=== PATIENT | female | born 1945 | race Caucasian/White ===

== ENCOUNTER 2020-06-26 12:51 | Outpatient (CLI) | payer MEDICARE, SELFPAY ==
--- NOTE | 2020-06-26 12:56 | ECG_ITS ---
Measurements Intervals [place] Rate: 158 P: [place]: 0 QRS: 33 QRSD: 83 T: 9 QT: 271 QTc: 440 Interpretive Statements ATRIAL FIBRILLATION WITH RAPID VENTRICULAR RESPONSE INCOMPLETE RIGHT BUNDLE BRANCH BLOCK BASELINE ARTIFACT- AVF ABNORMAL ECG Electronically Signed On 06-26-2020 13:20:30 MATERIAL CHASER by Wes Sofia D.O.
== END 2020-06-26 12:52 | disposition home or self-care (01) ==
LOC: CHSLAB 12:56
PROVIDERS: PCP Nurse Practitioner Family; Visit Provider Nurse Practitioner Family
DX: I49.9 Cardiac arrhythmia, unspecified (principal)
CPT/HCPCS: 93005

== ENCOUNTER 2020-06-26 13:21 | Emergency (ER) | payer MEDICARE, SELFPAY ==
--- NOTE | ~2020-06-26 | XR_ITS ---
EXAMINATION: XR chest 1V portable INDICATION: Tachycardia TECHNIQUE: Portable AP chest at 1359 hours COMPARISON: None available FINDINGS: The heart size is upper limits of normal for technique. There are minimal airspace opacitie s of the lung bases. No pleural effusion or pneumothorax is identified. IMPRESSION: 1. Minimal airspace opacities of the lung bases, consistent with atelectasis versus pneumonia. Reviewed, dictated and finalized at location A. T CLERKS SUPERVISOR IMPRESSION: 1. Minimal airspace opacities of the lung bases, consistent with atelectasis ve rsus pneumonia.
[2020-06-26 13:25] VITALS: BP 167/74; PULSE 160; RESP 20; TEMP 36.3; O2SAT 100
[2020-06-26 13:30] VITALS: PULSE 160
--- NOTE | 2020-06-26 13:39 | ED.ARRPALP ---
HPI - Arrhythmia/Palpitations General Chief Complaint: Arrhythmia/Palpitations Stated Complaint: chest pain Time Seen by Provider: 06/26/20 13:39 Source: patient Mode of arrival: wheelchair Limitations: no limitations History of Present Illness HPI narrative: 74-year-old woman comes in today after she was found at her primary care doctor's office staff tachycardia. She was sent for an outpatient EKG which showed atrial fibrillation with RVR at 160-170. She denies any symptoms including chest pain, shortness of breath, ankle swelling, chest pressure, lightheadedness, dizziness, cough, recent cough or cold symptoms, abdominal pain or dysuria. She denies history of coronary artery disease, prior arrhythmias, heart procedures, thyroid disease, and currently does not take any medications. MD complaint: rapid heart beat and atrial fibrillation Onset (ago): unknown Duration: constant Associated symptoms: denies other symptoms Related Data Home Medications Medication Instructions Recorded Confirmed multivitamin 1 tablet PO DAILY 06/26/20 06/26/20 Allergies Allergy/AdvReac Type Severity Reaction Status Date / Time metronidazole [Flagyl] Allergy Intermediate Unknown Verified 06/26/20 15:18 Penicillins Allergy Intermediate Unknown Verified 06/26/20 15:18 Review of Systems Constitutional: Constitutional: Denies chills, Denies fatigue, Denies fever(s) and Denies weakness Eyes: Eyes: Denies change in vision and Denies photophobia ENT: Denies dysphagia, Denies nasal congestion and Denies sore throat Cardiovascular: Cardiovascular: Denies chest pain and Denies radiating jaw, neck or arm pain Respiratory: Respiratory: Denies chest congestion, Denies cough, Denies dyspnea and Denies wheezing Gastrointestinal: Gastrointestinal: Denies abdominal pain, Denies diarrhea, Denies nausea and Denies vomiting Genitourinary: Genitourinary: Denies nocturia and Denies dysuria Musculoskeletal: Musculoskeletal: Denies arthralgias and Denies joint swelling Integumentary/Breasts: Skin/Breast: Denies pruritus, Denies erythema and Denies rash Neurologic: Denies vertigo, Denies dizziness and Denies syncope Hematologic/Lymphatic: Hematologic/Lymphatic: Denies easy bleeding and Denies easy bruising Allergic/Immunologic: Allergic/Immunologic: Denies lip swelling and Denies tongue swelling PMFSH Past Medical History Medical History Overweight Social History Social History (Updated 06/26/20 @ 15:22 by Laci Bhardwaj MD) Smoking status: Never smoker Alcohol intake: never Substance use: never Living arrangements: alone Additional living arrangements comments: 2 dogs Exam Const: General: alert Nutritional Appearance: obese Orientation/consciousness: patient oriented x3 Other: anxious HENMT: Head: normal to inspection General nose exam: Normal nares present Face and sinus: normal facial exam Mouth: Yes moist mucous membranes Throat: posterior oropharynx normal Eyes: Conjunctivae: conjunctivae normal Pupils: Equal, round and reactive pupils present EOM: EOMs intact bilaterally Resp: Effort & Inspection: normal respiratory effort and not labored Auscultation: clear to auscultation bilaterally, no rales, no rhonchi and no wheezes Cardio: Rate: tachycardic Rhythm: abnormal rhythm irregularly irregular GI: Inspection: non-distended Auscultation: normal bowel sounds Other: nontender Skin: General skin exam: normal color, no jaundice and no pallor Rashes: no rashes Neuro: General: patient oriented x3, moves all extremities, no focal motor deficits and CN's II-XI intact bilaterally Speech: normal speech Gait exam (Neuro): Normal gait present Extrem: General: normal to inspection and no clubbing, cyanosis or edema Psych: Appearance: grossly normal and well kempt Mental Status: mental status grossly normal Affect: normal affect Attitude: cooperative Th
[2020-06-26 14:02] LABS: Basophils Absolute Auto 0.06 K/mm3 (0.00-0.10); Basophils Percent Auto 0.6 % (0.0-1.0); Eosinophils Absolute Auto 0.05 K/mm3 (0.02-0.50); Eosinophils Percent Auto 0.5 % (1.0-6.0); Hematocrit 43.6 % (35.0-42.0); Hemoglobin 14.1 g/dL (11.7-13.8); Immature Granulocyte Absolute 0.03 K/mm3 (0.00-0.00); Immature Granulocyte Percent A 0.3 % (0.0-0.0); Lymphocytes Absolute Auto 2.03 K/mm3 (1.10-4.50); Lymphocytes Percent Auto 21.6 % (18.0-42.0); Mean Corpuscular HGB Conc 32.3 g/dL (32.0-36.0); Mean Corpuscular Hemoglobin 29.6 pg (27.0-31.0); Mean Corpuscular Volume 91.6 fL (78.0-102.0); Mean Platelet Volume 11.1 fl (9.2-11.8); Monocytes Absolute Auto 0.84 K/mm3 (0.10-0.90); Monocytes Percent Auto 8.9 % (2.0-11.0); Neutrophils Absolute Auto 6.4 K/mm3 (1.7-7.2); Neutrophils Percent Auto 68.1 % (50.0-70.0); Platelet Count Result 319 K/mm3 (150-420); Red Blood Count 4.76 M/mm3 (4.20-5.40); Red Cell Distribution Width 12.5 % (11.6-14.4); White Blood Count 9.4 K/mm3 (4.8-10.8)
[2020-06-26 14:21] LABS: Partial Thromboplastin Time 22.6 SEC (22.3-31.6); Prothrombin Time 10.4 Seconds (9.64-11.0)
[2020-06-26 14:22] LABS: BNP 216 pg/mL (0-100)
[2020-06-26 14:32] LABS: Alanine Aminotransferase 22 U/L (14-59); Albumin Level 3.7 g/dL (3.4-5.0); Alkaline Phosphatase 97 U/L (46-116); Anion Gap 13 mmol/L (8-16); Aspartate Amino Transferase 14 U/L (15-37); Bilirubin,Total 0.2 mg/dL (0.00-1.00); Blood Urea Nitrogen 19 mg/dL (7-18); Calcium 9.3 mg/dL (8.5-10.1); Carbon Dioxide 24 mmol/L (21-32); Chloride 104 mmol/L (98-108); Estimated CRCL calculation 47 ml/min; Estimated Glomerular Filt Rate 58; Glucose 112 mg/dL (70-99); Osmolality Calculated 295 mOsm/kg (285-295); Potassium 4.1 mmol/L (3.5-5.1); Sodium 141 mmol/L (136-145); Thyroid Stimulating Hormone Reflex 1.74 u/IU/mL (0.36-3.74); Total Protein 7.4 g/dL (6.4-8.2)
[2020-06-26 14:33] LABS: Troponin I < 0.02 ng/mL (0.00-0.056)
--- NOTE | 2020-06-26 15:02 | PC.NURSE ---
attempts to call gonzalez carrillohospitality housekeeper, with noone is available called main number. speaking with gerardo Bondshospitality housekeeper.
[2020-06-26 15:05] LABS: Add Urine Microscopic? YES; Appearance Urine Clear (Clear); Bilirubin Urine Negative (Negative); Blood Urine Negative (Negative); Color Urine Yellow (Yellow); Glucose Urine UA Negative (Negative); Ketones Urine Trace (Negative); Leukocyte Esterase Ur Negative LEU/UL (Negative); Nitrate Urine Negative (Negative); Protein Urine Negative (Negative); Specific Grav Ur >= 1.030 (1.010-1.020); Urobilinogen Urine 0.2 mg/dL (0.2-1.0)
[2020-06-26] MEDS: ENOXAPARIN 100 MG/ML SYRINGE 90 MG SUB-Q (15:08)
[2020-06-26] MEDS: dilTIAZem HCl INJ 25 MG/5 ML VIAL 10 MG IV PUSH (15:08)
[2020-06-26 15:09] VITALS: BP 145/105; PULSE 160
[2020-06-26 15:10] LABS: RBC Urine 0-2 /hpf (0-2); Squamous Epithelial Cell Urine Rare /hpf (Few); WBC Urine 0-3 /hpf (0-3)
[2020-06-26 15:11] LABS: Bacteria Urine Trace /hpf
--- NOTE | 2020-06-26 15:33 | PC.NURSE ---
[facility] CONTACTED [facility] TO PROVIDE ROOM 205
--- NOTE | 2020-06-26 15:53 | PC.NURSE ---
TELEPHONE REPORT PROVIDED TO FAM RAI RN
--- NOTE | 2020-06-26 16:02 | PC.NURSE ---
[facility] CONTACTED FOR TRANSFER. ALS RIG UNAVAILABLE. [facility] CONTACTED FOR MUTUAL AID TRANSFER TO [place].
[2020-06-26 16:04] VITALS: BP 144/92; PULSE 152; RESP 20; TEMP 36.1; O2SAT 98
== END 2020-06-26 16:26 | disposition short-term general hospital (02) ==
PROVIDERS: Emergency Provider Emergency Medicine; PCP Nurse Practitioner Family
DX: I48.91 Unspecified atrial fibrillation (principal); E66.3 Overweight
CPT/HCPCS: 36415; 71045; 80053; 81001; 83880; 84443; 84484; 85025; 85610; 85730; 93005; 96365; 96372; 99285; J1650

== ENCOUNTER 2020-06-26 19:39 | Observation (INO) | payer MEDICARE, SELFPAY ==
--- NOTE | ~2020-06-26 | US_ITS ---
EXAMINATION: US carotid duplex BI DATE: 06/27/2020 13:11 INDICATION: Right carotid bruit TECHNIQUE: Grayscale, color Doppler, and pulsed Doppler images of the cervical carotid arteries were obtained. The degree of vessel stenosis is placed in one of the following categories: normal, <50%, 5 0-69%, >=70% but less than near-occlusion, near-occlusion, or total occlusion. Note that percent sten osis relative to normal distal artery lumen diameter is indirectly measured from velocity measurement s as described by Jason, et al. Radiology 2003; 229:340-346. COMPARISON: None. FINDINGS: RIGHT: The right common carotid artery (CCA) peak systolic velocity (PSV) is 123 cm/s. The right internal ca rotid artery (ICA) PSV is 77 cm/s. The right ICA end-diastolic velocity (EDV) is 24 cm/s. The right I CA/CCA PSV ratio is 0.6. Grayscale and color Doppler images demonstrate no evident stenosis or plaque in the ICA. The external carotid artery (ECA) PSV is 94 cm/s. There is antegrade flow in the right v ertebral artery. LEFT: The left CCA PSV is 90 cm/s. The left ICA PSV is 71 cm/s. The left ICA EDV is 19 cm/s. The left ICA/C CA PSV ratio is 0.8. Grayscale and color Doppler images demonstrate no evident stenosis or plaque in the ICA. The ECA PSV is 78 cm/s. There is antegrade flow in the left vertebral artery. IMPRESSION: 1. No evident plaque or stenosis in the right internal carotid artery. 2. No evident plaque or stenosis in the left internal carotid artery. Reviewed, dictated and finalized at location A. TENDER
[2020-06-26 17:10] VITALS: BP 174/88; PULSE 43; RESP 16; TEMP 36.3; O2SAT 100; BMI 40.6
[2020-06-26 18:00] VITALS: PULSE 114
--- NOTE | 2020-06-26 18:04 | ADMGEN ---
This patient, Aleta Kenny, was admitted to IMU Room 205-01 at 1710 on 06/26/2020. Patient/family oriented to hospital policies and general routines including ID bracelet, bed and alarms, visiting hours, pain management, procedures, bathroom and other care routines, personal items, smoking policy, room service/diet, and visiting hours. Information on how to activate the Rapid Response Team has been discussed. Patient/Family are encouraged to report perceived risks to care and to ask questions if they do not understand what they are told or what they should do.
[2020-06-26 19:18] VITALS: BP 159/114; PULSE 56; RESP 16; TEMP 36.2; O2SAT 100
[2020-06-26 19:59] VITALS: BP 180/127
[2020-06-26 20:00] VITALS: PULSE 81
--- NOTE | 2020-06-26 20:00 | PM.IMHP ---
H&P: HPI History of Present Illness Date/Time: 06/26/20 19:00 Chief complaint: Atrial fibrillation/rapid ventricular response. 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 It sounds as though she had a routine appointment with her primary care provider today and at that time she was noted to be in a tachyarrhythmia and was directed to the ED where an EKG demonstrated atrial fibrillation with rapid ventricular response. She claims no prior history of such and is completely asymptomatic despite a heart rate up into the 160s. Her blood pressures have also been quite elevated, as high as 180/127, and she does admit that on occasion her blood pressure will be a bit elevated but never this high. In any regard, she was started on a Cardizem drip at the outside hospital with improvement in her rate and blood pressures. At the time my evaluation she has no complaints and specifically denies headache, auditory and visual changes, focal weakness, paresthesias, chest pain, feelings of racing heart, palpitations, pleuritic pain, shortness of breath, nausea, vomiting, and sweats. She has no known history of cardiac dysrhythmia or coronary artery disease nor has she ever been diagnosed with hypertension or thyroid disease. She drinks perhaps 1 or 2 cups of coffee a day and does not drink soda or alcohol. She has no history of sleep apnea or concerns for such. Review of Systems Review of Systems: Narrative: Twelve systems were reviewed with pertinent positives and negatives as per HPI. Weight has remained stable. No lightheadedness or dizziness. No recent cold or flu symptoms. She denies fever, chills, and sweats. No orthopnea, PND, or lower extremity edema. No history of venous thromboembolism. Except as documented, all other systems were reviewed and are negative. [facility] Past Medical History Medical History (Updated 06/27/20 @ 00:34 by eKly Graf PA-C) Osteoarthritis Paroxysmal atrial fibrillation Surgical History Surgical History (Updated 06/27/20 @ 00:27 by Kely Graf PA-C) History of dilation and curettage Status post tonsillectomy and adenoidectomy Family History Family History (Updated 06/27/20 @ 00:28 by Kely Graf PA-C) Father Morbid obesity Surgical complication It sounds as though her father had either an ERCP or cholecystectomy and had complications thereafter in which he . Social History Social History (Updated 06/27/20 @ 00:30 by Kely Graf PA-C) Social History: Surrogate decision maker: Kelton Kenny, son. Code status: Full code. Smoking status: Never smoker Alcohol intake: never Substance use: never Additional living arrangements comments: Resides in [place] with her 2 small dogs. She is originally from [place] and has 3 children, [place], a son in [place], and a daughter who lives in the region. 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 Gender identity (if verbalized by the patient): Female Sexual Orientation (if Verbalized by the Patient): Straight or Heterosexual Spiritual care concerns: No Meds Home Medications and Allergies Home Medications Medication Instructions Recorded Confirmed Type No Home Medications 06/26/20 06/26/20 History Allergies Allergy/AdvReac Type Severity Reaction Status Date / Time metronidazole [Flagyl] Allergy Intermediate Unknown Verified 06/26/20 15:18 Penicillins Allergy Intermediate Unknown Verified 06/26/20 15:18 Vital Signs V
[2020-06-26 21:57] LABS: Troponin I < 0.012 ng/mL (0.000-0.034)
[2020-06-27] VITALS (10 sets, daily range): BP systolic 135–143; BP diastolic 55–88; PULSE 74–94; RESP 11–20; TEMP 36.1–36.4; O2SAT 97–98
--- NOTE | 2020-06-27 | ECHO_ITS ---
Patient Info Name: Aleta Kenny Age: 74 years : 1945 Gender: Female Ht: 61 in Wt: 214 lbs BSA: 2.10 m2 HR: 81 bpm BP: 135 / 88 mmHg Heart Rhythm: Sinus Rhythm Technical Quality: Good Exam Date: 06/27/2020 10:15 AM Exam Location: [facility] Pulmonary Patient Status: Outpatient Admit Date: 06/26/2020 Staff Ordering Physician: Kely Graf PA-C Porcelain Slusher: Mau Wolf, CRISTINE, RT Attending Provider: Scott Soler MD Referring Physician: Homar ADAM; Exam Type: CA echo doppler color flow Study Info Indications I48.1 - Persistent atrial fibrillation Complete two-dimensional, color flow and Doppler transthoracic echocardiogram is performed. Strain analysis performed. Summary 1. Complete two-dimensional, color flow and Doppler transthoracic echocardiogram is performed. 2. Strain analysis performed. 3. Left ventricular chamber dimension is normal. 4. Left ventricular systolic function is normal, estimated at 55-60%. 5. There is moderately increased left ventricular wall thickness. 6. The left ventricular diastolic function is normal. 7. Global longitudinal strain is borderline at -17 %. 8. Left atrial chamber dimension is mildly enlarged. 9. There is moderate aortic valve stenosis with a peak velocity of 267 cm/s, mean gradient of 15 mmHg, and aortic valve area of 1.0 cm2. 10. There is moderate aortic valve calcification. 11. There is mild mitral valve regurgitation. Left Ventricle Left ventricular chamber dimension is normal. Left ventricular systolic function is normal, estimated at 55-60%. There is moderately increased left ventricular wall thickness. The left ventricular diastolic function is normal. Global longitudinal strain is borderline at -17 %. Right Ventricle Right ventricular chamber dimension is normal. Right ventricular systolic function is normal. Left Atria Left atrial chamber dimension is mildly enlarged. Right Atria Right atrial chamber dimension is normal. Atrial Septum Intact interatrial septum visualized by color flow imaging. Aortic Valve The aortic valve is trileaflet. There is moderate aortic valve stenosis with a peak velocity of 267 cm/s, mean gradient of 15 mmHg, and aortic valve area of 1.0 cm2. There is trace aortic valve regurgitation. There is moderate aortic valve calcification. Pulmonic Valve The pulmonic valve is normal. There is no pulmonic valve stenosis. There is trace pulmonic regurgitation. Mitral Valve The mitral valve has normal leaflets. There is no mitral valve stenosis. There is mild mitral valve regurgitation. Tricuspid Valve The tricuspid valve leaflets are normal. There is no significant tricuspid valve stenosis. There is trace tricuspid valve regurgitation. Pericardium/Pleural The pericardium appears normal. There is no pericardial effusion. Inferior Vena Cava Normal inferior vena cava with >50% collapse upon inspiration consistent with normal right atrial pressure, 5 mmHg. Aorta The aortic root size at the sinus of Valsalva is normal. The prox ascending aorta size is normal. Left Ventricular Outflow Tract Name Value Normal LVOT 2D LVOT Diameter 2.0 cm
--- NOTE | 2020-06-27 | ECG_ITS ---
Measurements Intervals [place] Rate: 80 P: 67 ND: 149 QRS: 3 QRSD: 76 T: 77 QT: 407 QTc: 470 Interpretive Statements SINUS RHYTHM POSSIBLE LEFT ATRIAL ENLARGEMENT INCOMPLETE RIGHT BUNDLE BRANCH BLOCK LOW QRS VOLTAGE IN PRECORDIAL LEADS BORDERLINE T WAVE ABNORMALITY- HIGH LATERAL LEADS BORDERLINE ECG Electronically Signed On 06-27-2020 18:47:01 FEE CLERK by Wes Sofia D.O.
[2020-06-27 01:34] LABS: Troponin I < 0.012 ng/mL (0.000-0.034)
[2020-06-27] MEDS: ENOXAPARIN 100 MG/ML SYRINGE SUB-Q (02:21)
[2020-06-27 06:51] LABS: Hematocrit 44.5 % (37.0-47.0); Hemoglobin 14.6 g/dL (12.0-15.0); Mean Corpuscular HGB Conc 32.8 g/dl (32-36); Mean Corpuscular Hemoglobin 29.9 pg (26-34); Mean Platelet Volume 10.9 fl (7.4-10.4); Platelet Count Result 328 k/mm3 (150-375); Red Blood Count 4.89 M/mm3 (4.2-5.4); White Blood Count 7.7 K/mm3 (4.5-10.0)
[2020-06-27 07:07] LABS: Alanine Aminotransferase 16 U/L (4-35); Albumin Level 4.2 g/dL (3.5-5.1); Alkaline Phosphatase 105 U/L (38-126); Anion Gap 9 mmol/L (8-16); Aspartate Amino Transferase 24 U/L (14-36); Bilirubin,Total 0.6 mg/dL (0.2-1.3); Blood Urea Nitrogen 15 mg/dL (7-17); Calcium 9.3 mg/dL (8.4-10.2); Carbon Dioxide 26 mmol/L (22-30); Chloride 104 mmol/L (98-107); Cholesterol 238 mg/dL (0-200); Estimated CRCL calculation 58 ml/min; Estimated Glomerular Filt Rate > 60; Glucose 138 mg/dL (65-105); HDL Direct 69 mg/dL; Magnesium 2.3 mg/dL (1.6-2.3); Potassium 4.2 mmol/L (3.4-5.0); Sodium 139 mmol/L (137-145); Triglycerides 177 mg/dL (<150)
[2020-06-27 07:19] LABS: LDL Cholesterol Direct 151 mg/dL
--- NOTE | 2020-06-27 07:38 | PM.IMPN ---
Progress Note: A&P Assessment and Plan (1) Atrial fibrillation with rapid ventricular response: Code(s): I48.91 - Unspecified atrial fibrillation Status: Acute Assessment and Plan: New onset, she converted to sinus rhythm on her own. Echocardiogram pending. CHA2 DS2 -VASC score is 3 with a 3.2% annual risk of stroke. She was started on therapeutic Lovenox. Cardiology has been consulted, she still on a Cardizem drip. (2) Elevated blood pressure reading: Code(s): R03.0 - Elevated blood-pressure reading, without diagnosis of hypertension Status: Acute Assessment and Plan: Blood pressure under better control now. She was started on hydrochlorothiazide , monitor electrolytes while on this medication. (3) Obesity: Code(s): E66.9 - Obesity, unspecified Status: Acute Assessment and Plan: Possible underlying sleep apnea. Time Spent With Patient Time with patient: 15 - 25 minutes Subjective Date/time seen: No complains, she denies chest pain or palpitations, no SOB. She converted to sinus rhythm on her own . 06/27/20 07:38 Review of Systems Review of Systems: All systems reviewed & are unremarkable except as noted in HPI and below Exam Const: General: cooperative, comfortable, no acute distress, alert and awake Neck: Neck: supple and no JVD Resp: Effort & Inspection: normal respiratory effort and able to speak in complete sentences Auscultation: clear to auscultation bilaterally Cardio: Rate: regular rate Rhythm: regular rhythm Heart sounds: S1 normal heart sound present and S2 normal heart sound present Peripheral pulses: Peripheral pulses 2+ throughout GI: Inspection: obesity Percussion: Yes normal to percussion Auscultation: normal bowel sounds and normoactive bowel sounds Skin: General skin exam: normal color and no rashes or lesions noted Neuro: General: oriented to person, oriented to place, oriented to time, moves all extremities, Normal light touch and pain sensation and no focal motor deficits Objective Data Vital Signs Vital Signs: Vital Signs - 24 hr 06/26/20 17:10 06/26/20 18:00 06/26/20 19:18 Temperature 97.3 F L 97.2 F L Pulse Rate 43 L 114 H 56 L Respiratory Rate 16 16 Blood Pressure 174/88 H 159/114 H Pulse Oximetry 100 100 06/26/20 19:59 06/26/20 20:00 06/27/20 00:00 Temperature 97.0 F L Pulse Rate 81 94 Respiratory Rate 11 L Blood Pressure 180/127 H 135/88 Pulse Oximetry 97 06/27/20 03:32 06/27/20 04:00 06/27/20 06:00 Temperature Pulse Rate 83 79 85 Respiratory Rate Blood Pressure Pulse Oximetry Intake/Output Intake/Output: Intake & Output 06/24/20 06/25/20 06/26/20 06/27/20 23:59 23:59 23:59 23:59 Intake Total 100 100 Output Total 600 Balance 100 -500 Meds/Results Medications: Active Medications Generic Name Dose Route Start Last Admin Trade Name Freq PRN Reason Stop Dose Admin Enoxaparin Sodium 100 mg 06/27/20 01:00 06/27/20 02:21 Enoxaparin 100 Mg/Ml Syringe SUB-Q 100 mg Q12H BIBI Administration Hydrochlorothiazide 12.5 mg 06/27/20 09:00 Hydrochlorothiazide 12.5 Mg Capsule PO QAM BIBI Diltiazem HCl 100 mg in 100 mls @ 15 mls/hr 06/26/20 20:00 06/27/20 03:32 Cardizem 100 Mg/D5w 100 Ml IV CONT 15 mg/hr .Q6H40M BIBI 15 mls/hr Administration 15 MG/HR Labs Labs: Laboratory Results - last 24 hr 06/26/20 06/27/20 06/27/20 21:25 01:00 06:39 WBC 7.7 RBC 4.89 Hgb 14.6 Hct 44.5 MCV 91.0 MCH 29.9 MCHC 32.8 RDW 13.0 Plt Count 328 MPV 10.9 H Sodium Potassium Chloride Carbon Dioxide Anion Gap BUN Creatinine Estim Creat Clear Calc Estimated GFR Glucose Calcium Magnesium Total Bilirubin AST ALT Alkaline Phosphatase Troponin I < 0.012 < 0.012 Total Protein Albumin Triglycerides Cholesterol LDL Cholesterol
[2020-06-27] MEDS: hydroCHLOROthiazide 12.5 MG CAPSULE PO (08:57)
--- NOTE | 2020-06-27 11:23 | PM.CNCAR ---
Assessment and Plan Assessment and plan (1) PAF (paroxysmal atrial fibrillation): Code(s): I48.0 - Paroxysmal atrial fibrillation Status: Acute Assessment and Plan: she has a chads Vasc score 3 his of age, gender and high blood pressure. This was soon to be 4 whenever she turns 76. Therefore I do think that anticoagulation is warranted. Will start her on Eliquis 5 mg p.o. b.i.d.. Discontinue enoxaparin. Also initiate metoprolol tartrate 25 mg p.o. b.i.d. both for her atrial fibrillation as well for high blood pressure. Stop hydrochlorothiazide. Will check a free T4 level. 2D echocardiogram with Dopplers artery ordered and will be reviewed. DC diltiazem drip. Okay to go home later today and will have follow-up in our office. Outpatient stress test (2) Obesity: Code(s): E66.9 - Obesity, unspecified Status: Acute (3) Hypertension: Code(s): I10 - Essential (primary) hypertension Status: Acute Assessment and Plan: on metoprolol (4) Right carotid bruit: Code(s): R09.89 - Other specified symptoms and signs involving the circulatory and respiratory systems Status: Acute Assessment and Plan: bilateral carotid artery ultrasound to evaluate her carotid bruit History of Present Illness History of Present Illness Consult date/time: 06/27/20 11:23 Requesting physician: Kely Graf PA-C Consult reason: atrial fibrillation Reason For Visit: Atrial fibrillation/rapid ventricular response. 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 She went to her primary care's office yesterday to establish with her new physician. It was noticed that she was in an irregular heartbeat and was sent for an EKG. EKG showed atrial fibrillation with rapid ventricular response. Patient blood pressure is also quite elevated. She came to the hospital then for further evaluation. She was started on diltiazem drip and her rhythm did change back to the sinus overnight. She is currently remains in sinus rhythm and is otherwise feeling fine. She has no bleeding problems. She has no chest pain, shortness breath, syncope, presyncope, paroxysmal nocturnal dyspnea, orthopnea, unusual edema or palpitations. she does have a little bit of edema and her legs which is not new or different which is dependent in nature. Review of Systems Review of Systems: All systems reviewed & are unremarkable except as noted in HPI and below Constitutional: Constitutional: Denies weakness Eyes: Eyes: Denies blurry vision ENT: Denies Normal hearing present Cardiovascular: Cardiovascular: Denies chest pain Respiratory: Respiratory: Denies dyspnea Gastrointestinal: Gastrointestinal: Denies abdominal pain Genitourinary: Genitourinary: Denies flank pain Musculoskeletal: Musculoskeletal: Denies neck pain Integumentary/Breasts: Skin/Breast: Denies dry skin Neurologic: Denies headache(s) Psychiatric: Psychiatric: Denies anxiety Endocrine: Endocrine: Denies fatigue Hematologic/Lymphatic: Hematologic/Lymphatic: Denies easy bleeding Allergic/Immunologic: Allergic/Immunologic: Denies GI upset with certain foods PMFSH Past Medical History Medical History Osteoarthritis Paroxysmal atrial fibrillation Surgical History Surgical History History of dilation and curettage Status post tonsillectomy and adenoidectomy Family History Family History Father Morbid obesity Surgical complication It sounds as though her father had either an ERCP or cholecystectomy and had complications thereafter in which he . Social History Social History Socia
--- NOTE | 2020-06-27 11:32 | PM.DS ---
DS: Admitting Diagnosis Admitting Diagnosis Admitting Diagnosis: Atrial fibrillation/rapid ventricular response. 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 who is being directly admitted to the hospitalist service from the emergency department in [place] for further treatment and evaluation of atrial fibrillation with rapid ventricular response. It sounds as though she had a routine appointment with her primary care provider today and at that time she was noted to be in a tachyarrhythmia and was directed to the ED where an EKG demonstrated atrial fibrillation with rapid ventricular response. She claims no prior history of such and is completely asymptomatic despite a heart rate up into the 160s. Her blood pressures have also been quite elevated, as high as 180/127, and she does admit that on occasion her blood pressure will be a bit elevated but never this high. She was started on a Cardizem drip and she converted back to sinus rhythm on her own. Her CHA2 DS2- VASC score is 3 for instance she was started on Eliquis. She was also started on metoprolol 25 mg BID, her bp is under better control now, she is completely asymptomatic. The patient has a carotid bruit for which she is getting a carotid Doppler and should follow up as outpatient on this, she has no signs or symptoms to suggest a stroke or TIA. Follow up with cardiology and PCP. Status at Discharge Functional status at discharge: independent ambulation Overall status at discharge: patient is back to baseline Time Spent with Patient Time attestation: Total time spent providing and/or coordinating discharge services: Time spent: Greater than 30 minutes Exam Const: General: cooperative, comfortable, no acute distress, alert and awake Orientation/consciousness: oriented to person, oriented to place and oriented to time Neck: Neck: supple and no JVD Resp: Effort & Inspection: normal respiratory effort and able to speak in complete sentences Auscultation: clear to auscultation bilaterally Cardio: Rate: regular rate Rhythm: regular rhythm Heart sounds: S1 normal heart sound present and S2 normal heart sound present Peripheral pulses: Peripheral pulses 2+ throughout GI: Inspection: obesity Auscultation: normal bowel sounds and normoactive bowel sounds Skin: General skin exam: normal color and no rashes or lesions noted Neuro: General: oriented to person, oriented to place, oriented to time, moves all extremities, Normal light touch and pain sensation and no focal motor deficits DS: Data Data Completed and Pending Labs on day of discharge: Labs from last 24 hours 06/27/20 06/27/20 06/27/20 06:39 06:39 01:00 WBC 7.7 RBC 4.89 Hgb 14.6 Hct 44.5 MCV 91.0 MCH 29.9 MCHC 32.8 RDW 13.0 Plt Count 328 MPV 10.9 H Sodium 139 Potassium 4.2 Chloride 104 Carbon Dioxide 26 Anion Gap 9 BUN 15 Creatinine 0.80 Estim Creat Clear Calc 58 Estimated GFR > 60 Glucose 138 H Calcium 9.3 Magnesium 2.3 Total Bilirubin 0.6 AST 24 ALT 16 Alkaline Phosphatase 105 Troponin I < 0.012 Total Protein 8.0 Albumin 4.2 Triglycerides 177 H Cholesterol 238 H LDL Cholesterol Direct 151 HDL Direct 69 06/26/20 21:25 WBC RBC Hgb Hct MCV MCH MCHC RDW Plt Cou
== END 2020-06-27 16:57 | disposition home or self-care (01) ==
PROVIDERS: Internal Medicine Cardiovascular Disease; Physician Assistant; Admitting Provider Internal Medicine; PCP Nurse Practitioner Family; Visit Provider Hospitalist
DX: I48.0 Paroxysmal atrial fibrillation (principal); I10 Essential (primary) hypertension; E66.01 Morbid (severe) obesity due to excess calories; Z68.41 Body mass index [BMI] 40.0-44.9, adult; I35.0 Nonrheumatic aortic (valve) stenosis; I34.0 Nonrheumatic mitral (valve) insufficiency; R09.89 Other specified symptoms and signs involving the circulatory and respiratory systems; M79.89 Other specified soft tissue disorders; R94.31 Abnormal electrocardiogram [ECG] [EKG]
CPT/HCPCS: 36415; 80053; 80061; 83735; 84436; 84484; 85027; 93005; 93306; 93880; 94762; 96365; 96366; 96372; A9270; G0378; J1650

== ENCOUNTER 2020-07-12 00:08 | Outpatient (CLI) | payer MEDICARE, SELFPAY ==
[2020-07-12 19:24] LABS: SARS-CoV-2 RNA PCR Negative
== END 2020-07-12 00:09 | disposition home or self-care (01) ==
LOC: ANHCOVIDDT 00:08
PROVIDERS: PCP Nurse Practitioner Family; Visit Provider Specialist
DX: Z01.818 Encounter for other preprocedural examination (principal); Z20.828 Contact with and (suspected) exposure to other viral communicable diseases
CPT/HCPCS: 87635; C9803; U0003

== ENCOUNTER 2020-07-15 05:28 | Day surgery (SDC) | payer MEDICARE, SELFPAY ==
[2020-07-12 15:03] VITALS: BMI 40.4
[2020-07-15] VITALS (10 sets, daily range): BP systolic 124–158; BP diastolic 59–116; PULSE 61–79; RESP 14–16; TEMP 36.6; O2SAT 96–100; BMI 39.5
[2020-07-15 09:11] LABS: Basophils Absolute Auto 0.1 K/mm3 (0.0-0.1); Basophils Percent Auto 0.9 % (0.2-1.2); Eosinophils Absolute Auto 0.1 K/mm3 (0-0.3); Eosinophils Percent Auto 1.1 % (0-4.4); Hematocrit 43.8 % (37.0-47.0); Hemoglobin 14.2 g/dL (12.0-15.0); Immature Granulocyte Absolute 0.01 K/mm3 (0.00-0.031); Immature Granulocyte Percent A 0.2 % (0-0.5); Lymphocytes Absolute Auto 1.28 K/mm3 (0.9-3.2); Lymphocytes Percent Auto 23.1 % (18.3-44.2); Mean Corpuscular HGB Conc 32.4 g/dl (32-36); Mean Corpuscular Hemoglobin 29.2 pg (26-34); Mean Corpuscular Volume 89.9 fl (80-100); Monocytes Absolute Auto 0.5 K/mm3 (0.1-0.6); Monocytes Percent Auto 9.7 % (2.6-8.5); Neutrophils Absolute Auto 3.6 K/mm3 (1.3-6.7); Platelet Count Result 299 k/mm3 (150-375); Red Blood Count 4.87 M/mm3 (4.2-5.4); Red Cell Distribution Width 12.8 % (11.5-14.5); White Blood Count 5.6 K/mm3 (4.5-10.0)
[2020-07-15 09:21] LABS: INR 0.9; Prothrombin Time 12.8 Seconds (11.1-14.7)
[2020-07-15 09:26] LABS: Anion Gap 7 mmol/L (8-16); Blood Urea Nitrogen 15 mg/dL (7-17); Calcium 9.4 mg/dL (8.4-10.2); Carbon Dioxide 27 mmol/L (22-30); Chloride 108 mmol/L (98-107); Estimated CRCL calculation 57 ml/min; Estimated Glomerular Filt Rate > 60; Glucose 124 mg/dL (65-105); Potassium 4.4 mmol/L (3.4-5.0); Sodium 142 mmol/L (137-145)
--- NOTE | 2020-07-15 10:12 | WPDMODSED ---
Moderate Sedation Note-Pt Data Patient Data Diagnosis: Paroxysmal atrial fibrillation currently quiescent abnormal stress test? CAD aortic valve stenosis Present Complaint: no complaints today. This is a 74-year-old woman recently found to have paroxysmal atrial fibrillation. Noninvasive evaluation including a nuclear stress test suggests an anteroapical perfusion deficit. In addition to this echocardiogram has demonstrated aortic valve stenosis with a calculated valve area of 1.0 cm2 Procedure to be performed/Plan: right and left heart catheterization Allergies Allergy/AdvReac Type Severity Reaction Status Date / Time metronidazole [Flagyl] Allergy Intermediate Loss of Verified 07/12/20 14:29 Consciousness Penicillins Allergy Intermediate Difficulty Verified 07/12/20 14:29 Breathing Home Medications Medication Instructions Recorded Confirmed Type apixaban [Eliquis] 5 mg PO Q12HR #60 tablet 06/27/20 07/12/20 Rx metoprolol tartrate 25 mg PO Q12HR #60 tablet 06/27/20 07/15/20 Rx Current Medications: Active Medications Sodium Chloride (Normal Saline Iv) 500 mls @ 100 mls/hr IV CONT .Q5H BIBI Sedation/Anesthesia: No previous sedation/anesthesia problems (including family history). [facility] Past Medical History Medical History Hypertension Osteoarthritis Paroxysmal atrial fibrillation Surgical History Surgical History History of dilation and curettage Status post tonsillectomy and adenoidectomy Family History Family History Father Morbid obesity Surgical complication It sounds as though her father had either an ERCP or cholecystectomy and had complications thereafter in which he . Social History Social History Social History: Surrogate decision maker: Kelton Kenny, son. Code status: Full code. Smoking status: Never smoker Second hand tobacco smoke exposure: No Alcohol intake: never Substance use: never Substance use type: does not use Living arrangements: alone Additional living arrangements comments: Resides in [place] with her 2 small dogs. She is originally from [place] and has 3 children, [place], a son in [place], and a daughter who lives in the region. 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 Gender identity (if verbalized by the patient): Female Spiritual care concerns: No Mod Sed Physical Exam Physical Exam Pre Procedural Exam: Normal: Neck, Throat, Airway, Lungs, Heart Size, Heart Rate, Heart Rhythm, Neuro Exam and Extremities and Variation: Appearance ( obese white female no apparent distress) Hours since solid foods: 12 Hours since liquid intake: 12 Internal Medicine - PN: Obj Da Vital Signs Vital Signs: Vital Signs - 24 hr 07/15/20 09:15 Temperature 36.6 C Pulse Rate 73 Respiratory Rate 15 Blood Pressure 144/94 H Pulse Oximetry 100 Meds/Results Medications: Active Medications Generic Name Dose Route Start Last Admin Trade Name Freq PRN Reason Stop Dose Admin Sodium Chloride 500 mls @ 100 mls/hr 07/15/20 06:10 Normal Saline Iv IV CONT .Q5H BIBI Labs CBC & Chem 7: 07/15/20 08:56 07/15/20 08:56 Labs: Laboratory Results - last 24 hr 07/15/20 07/15/20 07/15/20 08:56 08:56 08:56 WBC 5.6 RBC 4.87 Hgb 14.2 Hct 43.8 MCV 89.9 MCH 29.2 MCHC 32.4 RDW 12.8 Plt Count 299 MPV 11.0 H Immature Gran % (Auto) 0.2 Neut % (Auto) 65.0 Lymph % (Auto) 23.1 [place] % (Auto) 9.7 H Eos % (Auto) 1.1 Baso % (Auto) 0.9 Lymph # (Auto) 1.28 [place] # (Auto) 0.5 Eos # (A
--- NOTE | 2020-07-15 11:00 | WPDCARDPROC ---
Cardiac Cath Procedure Note Date of procedure:: 07/15/20 Performing physician:: John Aragon MD Indication:: atrial fibrillation currently in sinus rhythm abnormal nuclear stress test abnormal echocardiogram indicating aortic valve stenosis Brief clinical history:: this is a 74-year-old woman who was seen recently in consultation because of paroxysmal atrial fibrillation. An echocardiogram suggested aortic valve stenosis with a valve area of 1.0 cm2. The nuclear stress test done following the admission suggested in anteroapical ischemic defect. She is now being brought for right and left heart catheterization for further evaluation of these findings Procedure Procedure performed:: right left heart catheterization. hemodynamic calculation of aortic valve area. Coronary angiography. Left ventriculography. Angio-Seal to right femoral artery Sedation/Medication given:: Fentanyl 50 mg Versed 2 mg case start time 10:29 a.m. case end time 10:56 a.m. sedation provided by Mich Ferrer RN, trained observer Access site:: right femoral artery, right femoral vein Estimated blood loss:: 20 cc Procedure note:: patient was brought to the cardiac catheterization lab in the postabsorptive state the right femoral triangle was prepared and draped in the usual fashion. Anesthesia was provided with 1% lidocaine infiltrated locally. Using the modified Seldinger technique the right common femoral artery was punctured and a long 6 Egyptian 45 cm sheath was placed into the thoracic aorta. Following this the femoral vein was punctured in a standard 7 Egyptian vascular sheath was placed. Right heart catheterization was then carried out using a balloon tip [place] catheter to measure right-sided hemodynamics, thermodilution cardiac outputs and sample av O2 difference. The [place] catheter was then removed. A 5 Egyptian angled pigtail catheter was then advanced into the aortic root and a J-wire was used which did cross the aortic valve and the catheter was placed into the LV. Both the pigtail catheter and the side arm of the 45 cm sheath were flushed copiously and connected to pressure for Simultaneous is aortic and left ventricular pressure recording. following this a left ventriculogram was injected in the 30 degree SÁNCHEZ projection. The catheters were then flushed again and a pullback was measured across the aortic valve. The pigtail catheter was then removed. The left coronary artery was engaged and injected in multiple projections using a 5 Egyptian FL4 catheter. The right coronary was engaged and injected using a standard 5 Egyptian JR4 catheter. The procedure was then terminated the angiogram was done of the femoral artery through the sheath an after this a 6 Egyptian Angio-Seal device was deployed at the site of the puncture with a good hemostatic result. Procedure was well tolerated uncomplicated. She left the lab aid with no evidence of a groin hematoma. Findings:: Hemodynamics: The right atrial pressure is 10 mmHg right ventricle 36/6 end-diastolic of 11. Pulmonary artery is 36 over 12 pulmonary capillary wedge pressure mean is central aortic pressure is 162/70 left ventricle 170 over to end-diastolic of 14. The thermodilution cardiac output is 3.9 liters/minute giving an index of 2.02 Roberto cardiac output is 3.86 giving index of 2.01. The mean aortic valve gradient is 6.6 mmHg aortic valve area calculates to be 1.6 cm2. Left ventricle: The LV is mildly increased in size there is mild global systolic dysfunction identified with a ejection fraction of 50% by visual estimation. There are no regional wall motion abnormalities. Left main coronary artery is nicely patent. there is some calcium in the superior wall of the left main but there is no stenosis. the LAD is a medium caliber artery extending down to around the apex the LAD is angiographically unremarkable the circumflex is a moderate caliber artery giving rise to the m
--- NOTE | 2020-07-15 15:47 | SUR.PHASEII ---
1430-pt given D/C orders and instructions. Questions answered and verbalized understanding. AOx4. PIV removed intact. Groin soft and non-tender, no evidence of bleeding or hematoma noted. Moderate right pedal pulse noted. Pt waiting for friend to come pick her up. Will continue to monitor.
== END 2020-07-15 14:30 | disposition home or self-care (01) ==
PROVIDERS: PCP Family Medicine; Visit Provider Specialist
PROC: 4A023N8 Measurement of Cardiac Sampling and Pressure, Bilateral, Percutaneous Approach (ICD-10-PCS; CPT 93453; principal; 2020-07-15 10:00)
DX: I48.0 Paroxysmal atrial fibrillation (principal); R94.39 Abnormal result of other cardiovascular function study; I10 Essential (primary) hypertension; M19.90 Unspecified osteoarthritis, unspecified site; Z79.01 Long term (current) use of anticoagulants
CPT/HCPCS: 36415; 80048; 85025; 85610; 93460; C1760; C1887; C1894; G0269; J1644; J2250; J3010; J7040

== ENCOUNTER 2020-09-30 10:00 | Outpatient (CLI) | payer MEDICARE, SELFPAY ==
[2020-09-30 11:04] LABS: Anion Gap 8 mmol/L (8-16); Blood Urea Nitrogen 26 mg/dL (7-18); Calcium 9.3 mg/dL (8.5-10.1); Carbon Dioxide 30 mmol/L (21-32); Chloride 104 mmol/L (98-108); Estimated Glomerular Filt Rate 57; Glucose 105 mg/dL (70-99); Osmolality Calculated 298 mOsm/kg (285-295); Potassium 4.4 mmol/L (3.5-5.1); Sodium 142 mmol/L (136-145)
== END 2020-09-30 10:01 | disposition home or self-care (01) ==
LOC: CHSLAB 10:02
PROVIDERS: PCP Family Medicine; Visit Provider Nurse Practitioner Adult Health
DX: I10 Essential (primary) hypertension (principal)
CPT/HCPCS: 36415; 80048

== ENCOUNTER 2022-08-15 10:16 | Inpatient (IN) | payer MEDICARE, SELFPAY ==
[2022-08-15] VITALS (16 sets, daily range): BP systolic 111–163; BP diastolic 55–118; PULSE 90–178; RESP 22–28; TEMP 36.1–36.9; O2SAT 86–96; BMI 39.9
--- NOTE | ~2022-08-15 | XR_ITS ---
EXAMINATION: XR chest 1V portable DATE: 08/15/2022 11:16 INDICATION: Cough and shortness of breath. Atrial fibrillation. TECHNIQUE: frontal view of the chest was obtained. COMPARISON: Chest radiograph dated 06/26/2020 FINDINGS: Increased interstitial pattern in the bilateral lower lung zones consistent with mild pulmonary edema . Slight interval elevation of the left hemidiaphragm with opacities at the left lower lung zone whic h could represent associated atelectasis or pneumonia. No pneumothorax or definitive pleural effusion . Heart size is within normal limits for AP technique. IMPRESSION: 1. Mild interstitial pulmonary edema in the bilateral lower lung zones are 2. No focal airspace opacities in the left lower lung zone which could represent atelectasis or pneum onia. Reviewed, dictated and finalized at location A. ATIONS MANAGER ASSISTANT IMPRESSION: 1. Mild interstitial pulmonary edema in the bilateral lower lung zones are 2. No focal airspace opacities in the left lower lung zone which could represen t atelectasis or pneumonia.
--- NOTE | ~2022-08-15 | XR_ITS ---
EXAMINATION: XR chest 2V Exam Date/Time: 08/17/2022 16:30 INSET CUTTER HISTORY: Cough, SOB Comparison: 08/15/2022. RESULT: Lines, tubes, and devices: None. Lungs and pleura: Similar diffuse reticular opacities likely representing mild interstitial edema. W orsening bibasilar opacities and costophrenic angle blunting, worse in the left lung base, where ther e are air bronchograms. Cardiomediastinal silhouette: Stable. Other: No acute osseous or upper abdominal finding. IMPRESSION: Left basilar consolidation, suspicious for pneumonia. Small left pleural effusion. Right basilar atel ectasis/scar and trace pleural effusion. Reviewed, dictated and finalized at location K. T CUTTER IMPRESSION: Left basilar consolidation, suspicious for pneumonia. Small left pleural effusi on. Right basilar atelectasis/scar and trace pleural effusion.
--- NOTE | ~2022-08-15 | US_ITS ---
EXAMINATION: US renal BI DATE: 08/17/2022 15:34 INDICATION: AMY TECHNIQUE: Multiple grayscale and Doppler ultrasound images of the kidneys were obtained. COMPARISON: None. FINDINGS: The right kidney measures 9.3 x 4.1 x 4.6 cm. The left kidney measures 10.0 x 5.0 x 5.6 cm. The kidne ys demonstrate normal parenchymal echogenicity. There is no hydronephrosis. The bladder is normal. IMPRESSION: Unremarkable renal sonogram findings. Reviewed, dictated and finalized at location K. APIST OCCUPATIONAL
--- NOTE | 2022-08-15 10:25 | ED.ARRPALP ---
HPI - Arrhythmia/Palpitations General Chief Complaint: Arrhythmia/Palpitations Stated Complaint: sob Time Seen by Provider: 08/15/22 10:20 History of Present Illness HPI narrative: Patient is a 77-year-old female with a history of hypertension, paroxysmal A. fib on Eliquis presenting with palpitations and shortness of breath. Patient states that starting last night she had some shortness of breath and wheezing. States that she continued to feel short of breath this morning and then she developed palpitations. States that it feels like prior episodes of A. fib with RVR. She denies any chest pain. States that she has had some lightheadedness with exertion. She denies recent fevers or chills, cough, abdominal pain, nausea or vomiting, diarrhea, dysuria, leg swelling. Related Data Home Medications Medication Instructions Recorded Confirmed hydrochlorothiazide 12.5 mg capsule 12.5 mg PO QAM 08/15/22 08/15/22 Allergies Allergy/AdvReac Type Severity Reaction Status Date / Time metronidazole [Flagyl] Allergy Intermediate Loss of Verified 08/15/22 10:38 Consciousness Penicillins Allergy Intermediate Difficulty Verified 08/15/22 10:38 Breathing Review of Systems Review of Systems: All systems reviewed & are unremarkable except as noted in HPI and below PMFSH Past Medical History Medical History Chronic anticoagulation Hypertension Osteoarthritis Paroxysmal atrial fibrillation Right carotid bruit (06/2020) Carotid Doppler ultrasounds showed no evident plaque or stenosis in the bilateral internal carotid arteries. Surgical History Surgical History History of cardiac catheterization (06/2020) No significant coronary artery disease. No significant aortic valve stenosis. History of dilation and curettage History of tonsillectomy and adenoidectomy Family History Family History Father Morbid obesity Surgical complication It sounds as though her father had either an ERCP or cholecystectomy and had complications thereafter in which he . Social History Social History Social History: Surrogate decision maker: Kelton Kenny, son. Emergency contact: Aleksandra Sotos, friend. Code status: Full code. Smoking status: Never smoker Second hand tobacco smoke exposure: No Alcohol intake: never Substance use: never Substance use type: does not use Lack of Transportation: No Lack of Food: Never True Current Housing: I Have Housing Concerned About Future Housing: No Difficulty Paying Gas/Electric Bills: No Difficulty Paying for Meds: No Currently Unemployed: No Education: Associate Degree Difficulty w/ Childcare or Family Care: No Additional living arrangements comments: Resides in [place] with her 2 small dogs. She is originally from [place] and has 3 children, [place], a son in [place], and a daughter who lives in the region. 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 Spiritual care concerns: No Exam Narrative: GENERAL: Uncomfortable appearing, in no acute distress. HEAD: Normocephalic, atraumatic. EYES: PERRLA and EOMI. ENT: Nares clear, no rhinorrhea or epistaxis. Mucous membranes moist. NECK: Supple. CHEST: Clear to auscultation. No respiratory distress. HEART: Tachycardic, irregular rhythm. No murmur heard. Normal peripheral pulses. ABDOMEN: Soft, nontender, nondistended, normal active bowel sounds. EXTREMITIES: Normal range of motion. No edema. SKIN: Warm, dry, no rash. NEURO: No focal deficits. Alert and oriented x3. PSYCH: Normal mood and affect. Course Vital Signs Vital signs: Vital Signs Temperature 98.4 F 08/15/22 10:30 Pulse Rate 174 H 08/15/22 10:30 Respiratory Rat
--- NOTE | 2022-08-15 10:36 | ECG_ITS ---
Measurements Intervals [place] Rate: 163 P: [place]: 0 QRS: 86 QRSD: 71 T: 214 QT: 271 QTc: 447 Interpretive Statements ATRIAL FIBRILLATION WITH RAPID VENTRICULAR RESPONSE WITH ABERRANT CONDUCTION OR VENTRICULAR PREMATURE COMPLEXES BASELINE ARTIFACT LOW QRS VOLTAGE IN PRECORDIAL LEADS ABNORMAL ECG COMPARED TO ECG 06/27/2020 06:06:14 ATRIAL FIBRILLATION NOW PRESENT ABERRANT CONDUCTION OF SUPRAVENTRICULAR BEAT(S) NOW PRESENT Electronically Signed On 08-15-2022 13:41:07 AVIATION ENGINEER by Vasu Leon M.D.
[2022-08-15 11:01] LABS: Basophils Absolute Auto 0.1 K/mm3 (0.0-0.1); Basophils Percent Auto 0.6 % (0.2-1.2); Eosinophils Percent Auto 0.1 % (0-4.4); Hematocrit 47.9 % (37.0-47.0); Hemoglobin 15.3 g/dL (12.0-15.0); Immature Granulocyte Absolute 0.03 K/mm3 (0.00-0.031); Immature Granulocyte Percent A 0.3 % (0-0.5); Lymphocytes Absolute Auto 1.27 K/mm3 (0.9-3.2); Lymphocytes Percent Auto 13.6 % (18.3-44.2); Mean Corpuscular HGB Conc 31.9 g/dl (32-36); Mean Corpuscular Hemoglobin 29.3 pg (26-34); Mean Corpuscular Volume 91.6 fl (80-100); Monocytes Absolute Auto 0.7 K/mm3 (0.1-0.6); Monocytes Percent Auto 7.3 % (2.6-8.5); Neutrophils Absolute Auto 7.3 K/mm3 (1.3-6.7); Neutrophils Percent Auto 78.1 % (45.5-73.1); Platelet Count Result 286 k/mm3 (150-375); Red Blood Count 5.23 M/mm3 (4.2-5.4); Red Cell Distribution Width 13.5 % (11.5-14.5); White Blood Count 9.4 K/mm3 (4.5-10.0)
[2022-08-15] MEDS: dilTIAZem 100 MG/100 ML 100 MG/100 ML BAG IV CONT (11:01)
[2022-08-15] MEDS: SODIUM CHLORIDE 0.9% IV 1,000 ML 999 ML IV CONT (11:01)
[2022-08-15] MEDS: dilTIAZem HCl INJ 25 MG/5 ML VIAL 10 MG IV PUSH (11:02)
[2022-08-15 11:11] LABS: Alanine Aminotransferase 35 U/L (6-35); Albumin Level 4.4 g/dL (3.5-5.1); Alkaline Phosphatase 109 U/L (38-126); Anion Gap 11 mmol/L (8-16); Aspartate Amino Transferase 34 U/L (14-36); Bilirubin,Total 0.7 mg/dL (0.2-1.3); Blood Urea Nitrogen 26 mg/dL (7-17); Calcium 9.2 mg/dL (8.4-10.2); Carbon Dioxide 24 mmol/L (22-30); Chloride 102 mmol/L (98-107); Estimated CRCL calculation 46 ml/min; Estimated Glomerular Filt Rate 54; Glucose 158 mg/dL (65-110); Potassium 3.7 mmol/L (3.4-5.0); Sodium 137 mmol/L (137-145)
[2022-08-15 11:12] LABS: INR 1.5; Prothrombin Time 17.7 Seconds (11.1-14.7)
[2022-08-15 11:13] LABS: Partial Thromboplastin Time 30.2 SECONDS (22.3-36.8)
[2022-08-15 11:24] LABS: NT Pro B Type Natriuretic Pept 9230 pg/mL (5-100); Troponin I 0.067 ng/mL (0.000-0.034)
[2022-08-15 11:37] LABS: Influenza A QL RT-PCR Negative (Negative); Influenza B QL RT-PCR Negative (Negative); SARS-CoV-2 RNA PCR Negative
--- NOTE | 2022-08-15 12:09 | PC.NURSE ---
pt states she did not take her morning medications this morning and requesting if she can take them. EDP Alberto made aware and states she is okay to take them. pt took 12.5mg of Hydrochlorothiazide, 25mg of Metoprolol, and 5mg of Eliquis.
[2022-08-15] MEDS: FUROSEMIDE INJ 40 MG/4 ML VIAL 20 MG IV PUSH ×2 (12:53→17:55)
[2022-08-15] MEDS: ONDANSETRON INJ 4 MG/2 ML VIAL IV PUSH (12:53)
--- NOTE | 2022-08-15 13:11 | PC.NURSE ---
titrated pt's Cardizem back down to 10mg/hr per EDP Alberto. VORB.
--- NOTE | 2022-08-15 13:29 | PC.NURSE ---
ordered pt heart healthy lunch tray.
--- NOTE | 2022-08-15 15:15 | PM.IMHP ---
H&P: HPI History of Present Illness Date/Time: 08/15/22 15:15 Chief Complaint: Shortness of breath and racing heart. Narrative: This is a 77-year-old female with hypertension, paroxysmal atrial fibrillation on anticoagulation, and aortic stenosis who presented to the emergency department for evaluation of shortness of breath and sensations of racing heart. Her symptoms developed over the last couple of days and she has reports sensations of racing heart, palpitations, dyspnea on exertion, and some lightheadedness with exertion, similar to those she has experienced previously with atrial fibrillation. She has 3 pillow orthopnea and mild edema in the extremities. She denies recent cold and flu symptoms, fever, chills, sweats, chest pain, pleuritic pain, nausea, and vomiting. She has been maintained on metoprolol tartrate 25 mg b.i.d. and she is on apixaban for stroke prophylaxis; she states compliance with both. She last saw her manager transfusion (Dr. Abad) in May and there are plans for a repeat echo in October to reassess her aortic stenosis. On arrival to the emergency department she was found to be in atrial fibrillation with rapid ventricular response (rate as high as 178) and she has been started on Cardizem drip with improvement in her rate. She has no significant complaints at this time. Review of Systems Review of Systems: Twelve systems were reviewed. Weight has remained stable. No history of diabetes or thyroid disease. She denies significant caffeine intake and alcohol abuse. No concerns for sleep apnea. Except as documented, all other systems were reviewed and are negative. [facility] Past Medical History Medical History (Updated 08/15/22 @ 13:45 by Kely Graf PA-C) Chronic anticoagulation Hypertension Osteoarthritis Paroxysmal atrial fibrillation Right carotid bruit (06/2020) Carotid Doppler ultrasounds showed no evident plaque or stenosis in the bilateral internal carotid arteries. Surgical History Surgical History (Updated 08/15/22 @ 13:43 by Kely Graf PA-C) History of cardiac catheterization (06/2020) No significant coronary artery disease. No significant aortic valve stenosis. History of dilation and curettage History of tonsillectomy and adenoidectomy Family History Family History Father Morbid obesity Surgical complication It sounds as though her father had either an ERCP or cholecystectomy and had complications thereafter in which he . Social History Social History (Updated 08/15/22 @ 15:55 by Kely Graf PA-C) Social History: Surrogate decision maker: Kelton Kenny, son. Emergency contact: Aleksandra Godinez, friend. Code status: Full code. Smoking status: Never smoker Second hand tobacco smoke exposure: No Alcohol intake: never Substance use: never Substance use type: does not use Additional living arrangements comments: Resides in [place] with her 2 small dogs. She is originally from [place] and has 3 children, a son on the [facility], a son in [place], and a daughter who lives in the region. 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 Spiritual care concerns: No Meds Home Medications and Allergies Home Medications Medication Instructions Recorded Confirmed Type apixaban 5 mg tablet (Eliquis) 5 mg PO Q12HR #60 tabs 06/27/20 07/12/20 Rx metoprolol tartrate 25 mg tablet 25 mg PO Q12HR #60 tabs 06/27/20 07/15/20 Rx hydrochlorothiazide 12.5 mg capsule mg 08/15/22 History hydrochlorothiazide 12.5 mg capsule mg 08/15/22 History Allergies Allergy/AdvReac Type Severity Reaction Status Date / Time metronidazole [Flagyl] Allergy Intermediate Loss of Verified 08/15/22 10:38 Consciousness Penicillins Allergy Intermediate Difficulty Verified 08/15/22 10:38 Breathing Vital Signs Vital Signs - 24 hr 08/15/22 10:30 08/15/22 11:01 1
[2022-08-15 16:08] LABS: Add Urine Microscopic? YES; Appearance Urine Slightly Cloudy (Clear); Bilirubin Urine 1+ (Negative); Blood Urine Negative (Negative); Color Urine Yellow (Yellow); Glucose Urine UA Negative (Negative); Ketones Urine Negative (Negative); Leukocyte Esterase Ur Trace LEU/UL (Negative); Nitrate Urine Negative (Negative); Protein Urine Trace mg/dL (Negative); Specific Grav Ur >= 1.030 (1.001-1.035); Urobilinogen Urine 0.2 mg/dL (<2.0)
[2022-08-15 16:34] LABS: Bacteria Urine Trace /hpf; Mucus Urine Few /lpf; Squamous Epithelial Cell Urine Many /hpf (Few); WBC Urine 21-30 /hpf
--- NOTE | 2022-08-15 20:11 | ADMGEN ---
This patient, Aleta Kenny, was admitted to IMU Room 201-August 15 at 1815. Patient/family oriented to hospital policies and general routines including ID bracelet, bed and alarms, visiting hours, pain management, procedures, bathroom and other care routines, personal items, smoking policy, room service/diet, and visiting hours. Information on how to activate the Rapid Response Team has been discussed. Patient/Family are encouraged to report perceived risks to care and to ask questions if they do not understand what they are told or what they should do.
[2022-08-15] MEDS: APIXABAN 5 MG TABLET PO (23:55)
[2022-08-15] MEDS: METOPROLOL TARTRATE 25 MG TABLET PO (23:55)
[2022-08-16] VITALS (19 sets, daily range): BP systolic 100–131; BP diastolic 57–92; PULSE 68–149; RESP 18–28; TEMP 36.1–36.4; O2SAT 90–97
[2022-08-16 05:49] LABS: Anion Gap 9 mmol/L (8-16); Blood Urea Nitrogen 34 mg/dL (7-17); Calcium 8.4 mg/dL (8.4-10.2); Carbon Dioxide 25 mmol/L (22-30); Chloride 104 mmol/L (98-107); Estimated CRCL calculation 30 ml/min; Estimated Glomerular Filt Rate 34; Glucose 138 mg/dL (65-110); Magnesium 2.2 mg/dL (1.6-2.3); Potassium 4.2 mmol/L (3.4-5.0); Sodium 138 mmol/L (137-145)
[2022-08-16 06:36] LABS: Hematocrit 43.6 % (37.0-47.0); Hemoglobin 14.1 g/dL (12.0-15.0); Mean Corpuscular HGB Conc 32.3 g/dl (32-36); Mean Corpuscular Hemoglobin 29.4 pg (26-34); Mean Corpuscular Volume 90.8 fl (80-100); Mean Platelet Volume 12.6 fl (7.4-10.4); Platelet Count Result 255 k/mm3 (150-375); Red Cell Distribution Width 13.7 % (11.5-14.5); White Blood Count 11.7 K/mm3 (4.5-10.0)
--- NOTE | 2022-08-16 08:22 | ECG_ITS ---
Measurements Intervals [place] Rate: 144 P: [place]: 0 QRS: 78 QRSD: 77 T: 178 QT: 328 QTc: 509 Interpretive Statements ATRIAL FIBRILLATION WITH RAPID VENTRICULAR RESPONSE LOW-VOLTAGE QRS IN PRECORDIAL LEADS MODERATE T-WAVE ABNORMALITY, CONSIDER ANTEROLATERAL ISCHEMIA ABNORMAL ECG COMPARED TO ECG 08/15/2022 10:30:34 NO SIGNIFICANT CHANGES Electronically Signed On 08-16-2022 15:51:11 MATRIX BATH ATTENDANT by Vasu Leon M.D.
[2022-08-16] MEDS: hydroCHLOROthiazide 12.5 MG CAPSULE PO (08:28)
[2022-08-16] MEDS: METOPROLOL TARTRATE 25 MG TABLET PO ×3 (08:28→17:23)
[2022-08-16] MEDS: APIXABAN 5 MG TABLET PO ×2 (08:28→21:37)
[2022-08-16] MEDS: dilTIAZem 100 MG/100 ML 100 MG/100 ML BAG IV CONT (08:58)
--- NOTE | 2022-08-16 09:54 | PM.CNCAR ---
Assessment and Plan Assessment and plan (1) Atrial fibrillation with rapid ventricular response: Code(s): I48.91 - Unspecified atrial fibrillation Status: Acute Assessment and Plan: Symptomatic recurrence of atrial fibrillation with rapid ventricular response with spontaneous conversion sinus rhythm on diltiazem infusion however with return of AFib refractory to medical therapy. We will up titrate diltiazem infusion as tolerated and continue oral metoprolol. If AFib RVR refractory or poorly tolerated discontinuation of diltiazem in favor antiarrhythmic therapy such as amiodarone may be required. We discussed risks and benefits in this regard including but not limited to effects on the eyes thyroid and lungs. Patient verbalized understanding. We also discussed options such as sotalol. We discussed alternatives such as flecainide a given patient presentation concerning for degree of heart failure and significant proBNP elevation can not exclude degree of LV dysfunction and so would defer until after review of echocardiogram to confirm preservation of EF. Continue systemic anticoagulation. All questions answered to the patient's satisfaction. If LV dysfunction noted make every attempt to avoid and/or discontinue diltiazem in favor of alternative therapy. Increase metoprolol tartrate 25 mg t.i.d.. We also discussed the possibility elective cardioversion may be required to restore sinus rhythm, however, given history of paroxysmal atrial fibrillation and the fact that she had temporarily revert to sinus rhythm with support plan to pursue aggressive medical management if possible. (2) CHF (congestive heart failure): Qualifiers: Heart failure type: diastolic Heart failure chronicity: acute Qualified Code(s): I50.31 - Acute diastolic (congestive) heart failure Code(s): I50.9 - Heart failure, unspecified Status: Acute Assessment and Plan: Most likely acute heart failure with preserved ejection fraction, however, we discussed possibility of tachycardia induced cardiomyopathy contribute degree of LV dysfunction which case aggressive rhythm control strategy would be preferred with antiarrhythmic medications such as amiodarone. 2D echocardiogram is pending. Recommendation to follow. Continue IV Lasix 20 mg IV q.12 hours for now. Accurate input and output, daily weight. Monitor electrolytes very closely and replete as appropriate. (3) Elevated troponin: Code(s): R77.8 - Other specified abnormalities of plasma proteins Status: Acute Assessment and Plan: Patient is a history of normal coronary anatomy left heart catheterization June 2020. Elevated troponin very likely demand ischemia setting of AFib with RVR and mild decompensated heart failure presentation. Troponin elevation not secondary to acute coronary syndrome and/or plaque rupture and it is very unlikely patient has developed significant obstructive CAD within the past 2 years without preceding anginal symptoms. (4) Aortic stenosis: Code(s): I35.0 - Nonrheumatic aortic (valve) stenosis Status: Acute Assessment and Plan: History of mild more recently moderate aortic stenosis. Repeat 2D echocardiogram to clarify status and more directly EF in light of patient's presentation as noted above. (5) Hypertension: Code(s): I10 - Essential (primary) hypertension Status: Acute Assessment and Plan: Hemodynamically stable thus far. I would hold hydrochlorothiazide for the time being. (6) Chronic anticoagulation: Code(s): Z79.01 - nursing home (current) use of anticoagulants Status: Acute Assessment and Plan: Eliquis 5 mg b.i.d.. Monitor renal function. History of Present Illness History of Present Illness Consult date/time: Date of service: 08/16/22 09:54 Requesting physician: Kely Graf PA-C Consult reason: atrial fibrillation Reason For Visit: Afib with RVR Narrat
[2022-08-16] MEDS: FUROSEMIDE INJ 40 MG/4 ML VIAL 20 MG IV PUSH ×2 (10:53→17:23)
--- NOTE | 2022-08-16 15:42 | PM.IMPN ---
Progress Note: A&P Assessment and Plan (1) Atrial fibrillation with rapid ventricular response: Code(s): I48.91 - Unspecified atrial fibrillation Status: Acute Assessment and Plan: Precipitating etiology is not entirely clear. Rate remains elevated in the 120-130s today on diltiazem drip. Appreciate cardiology consultation. Diltiazem uptitrated per Cardiology recommendation. Continue p.o. metoprolol, increased to 25 mg t.i.d. continue to monitor on telemetry. Continue apixaban for stroke prophylaxis (2) Elevated troponin: Code(s): R77.8 - Other specified abnormalities of plasma proteins Status: Acute Assessment and Plan: Most likely related to atrial fibrillation with rapid ventricular response and CHF. Not felt to be secondary to ACS. Normal coronary anatomy noted on previous left heart catheterization in June 2020. Echocardiogram is pending. (3) CHF (congestive heart failure): Qualifiers: Heart failure chronicity: acute Heart failure type: diastolic Qualified Code(s): I50.31 - Acute diastolic (congestive) heart failure Code(s): I50.9 - Heart failure, unspecified Status: Acute Assessment and Plan: Appears to have acute CHF exacerbation with complaints of dyspnea. Echocardiogram is pending. Continue IV Lasix 20 mg IV q.12 hours. Monitor intake and output and daily weights. (4) AMY (acute kidney injury): Code(s): N17.9 - Acute kidney failure, unspecified Status: Acute Assessment and Plan: Creatinine increased to 1.5 today. Likely due to need for diuresis. Continue with Lasix for today and then may need to consider transition to oral versus holding further diuretics if creatinine remaining elevated. Hold hydrochlorothiazide. Monitor BMP closely. Consider renal ultrasound if worsening (5) Chronic anticoagulation: Code(s): Z79.01 - [facility] (current) use of anticoagulants Status: Acute Assessment and Plan: Continue apixaban for stroke prophylaxis. (6) Hypertension: Code(s): I10 - Essential (primary) hypertension Status: Chronic Assessment and Plan: Blood pressures remaining stable. Monitor closely while on Cardizem drip. Subjective Date/time seen: 08/16/22 15:43 Interval history: Date of service: 08/16/2022 Aleta Kenny is a 77-year-old with a history of paroxysmal atrial fibrillation on chronic anticoagulation, hypertension, and osteoarthritis who is seen in follow-up for atrial fibrillation with rapid ventricular response. She states she is feeling much better today. She continues to endorse shortness of breath and dyspnea on exertion, though notes this is much improved compared to prior to presentation. She reports previously wheezing but this has resolved. She denies palpitations. No chest pain. She denies dizziness or lightheadedness but notes pretty significant fatigue if she over exerts herself. She feels weak. Denies any urinary symptoms. Last bowel movement 2 days ago. Tolerating her diet. Review of Systems Review of Systems: All systems reviewed & are unremarkable except as noted in HPI and below Exam Narrative: General: Obese, well-appearing 77-year-old female, sitting up in bed, comfortable, NARD Neuro: awake, alert and oriented x4, speech clear, no focal neuro deficits noted HEENMT: normocephalic, atraumatic, EOMI, sclerae anicteric Respiratory: clear to auscultation bilaterally, nonlabored breathing Cardio: Tachycardic, irregularly irregular rhythm Abdomen: nondistended, normoactive bowel sounds, soft, nontender to palpation Extremities: Trace edema of bilateral lower extremities, no erythema or tenderness to palpation, DP pulses 2+ bilaterally Skin: no rashes or lesions, warm and dry Psych: appropriate mood and affect, judgment and insight intact Objective Data Vital Signs Vital Signs: Vital Signs - 24 hr 08/15/22 17:
[2022-08-16] MEDS: dilTIAZem 100 MG/100 ML 100 MG/100 ML BAG 15 MG IV CONT ×2 (16:30→22:52)
[2022-08-17] VITALS (28 sets, daily range): BP systolic 105–135; BP diastolic 67–89; PULSE 71–118; RESP 16–22; TEMP 36.1–37.6; O2SAT 90–100
[2022-08-17 04:52] LABS: Hematocrit 44.9 % (37.0-47.0); Hemoglobin 14.6 g/dL (12.0-15.0); Mean Corpuscular HGB Conc 32.5 g/dl (32-36); Mean Corpuscular Hemoglobin 29.6 pg (26-34); Mean Corpuscular Volume 91.1 fl (80-100); Mean Platelet Volume 12.9 fl (7.4-10.4); Platelet Count Result 297 k/mm3 (150-375); Red Blood Count 4.93 M/mm3 (4.2-5.4); Red Cell Distribution Width 13.7 % (11.5-14.5); White Blood Count 13.3 K/mm3 (4.5-10.0)
[2022-08-17] MEDS: dilTIAZem 100 MG/100 ML 100 MG/100 ML BAG 15 MG IV CONT (05:20)
[2022-08-17 08:05] LABS: Anion Gap 10 mmol/L (8-16); Blood Urea Nitrogen 48 mg/dL (7-17); Calcium 8.2 mg/dL (8.4-10.2); Carbon Dioxide 21 mmol/L (22-30); Chloride 94 mmol/L (98-107); Estimated CRCL calculation 25 ml/min; Estimated Glomerular Filt Rate 27; Glucose 201 mg/dL (65-110); Potassium 4.2 mmol/L (3.4-5.0); Sodium 125 mmol/L (137-145)
[2022-08-17 11:54] LABS: Sodium 129 mmol/L (137-145)
[2022-08-17] MEDS: APIXABAN 5 MG TABLET PO ×2 (12:04→22:12)
[2022-08-17] MEDS: METOPROLOL TARTRATE 50 MG TAB PO ×3 (13:03→22:12)
[2022-08-17] MEDS: dilTIAZem 100 MG/100 ML 100 MG/100 ML BAG 10 MG IV CONT (13:09)
--- NOTE | 2022-08-17 14:49 | PM.PNCARD ---
Progress Note: A&P Assessment and Plan (1) Atrial fibrillation with rapid ventricular response: Code(s): I48.91 - Unspecified atrial fibrillation Status: Acute Assessment and Plan: Symptomatic recurrence of atrial fibrillation with rapid ventricular response with spontaneous conversion sinus rhythm on diltiazem infusion however with return of AFib refractory to medical therapy. Bedside review of echocardiogram reveals moderate LV dysfunction EF approximately 35% with severe hypokinesis at the apex relative sparing of the bases suggestive of a takotsubo cardiomyopathy. However, clinically patient does not endorse a history at all suggestive of a stress-induced cardiomyopathy or recent trauma. Furthermore, patient did not endorse anginal symptoms and had a normal coronary angiogram 2 years ago. Most likely explanation would be a tachycardia induced cardiomyopathy related to uncontrolled atrial fibrillation with RVR, however, the pattern noted on echocardiogram is not will be expected. While clinically the latter is most likely appearance of the LV were consistent with stress-induced cardiomyopathy. Will need to down titrate diltiazem and wean off. Increase metoprolol to 50 mg p.o. q.8 hours and up titrate as tolerated. Continue able to control heart rate beta-sparkle therapy, however, discussed options amiodarone for heart rate and/or rhythm control least on a temporary basis. Discussed potential need for electrical cardioversion to restore sinus rhythm with patient reluctant to consider as this has not been effective in the past. I explained the circumstances are quite different given LV dysfunction and as such this may need to be pursued. Will keep patient NPO after midnight in case this is necessary. Patient is hemodynamically stable thus far. (2) CHF (congestive heart failure): Qualifiers: Heart failure chronicity: acute Heart failure type: diastolic Qualified Code(s): I50.31 - Acute diastolic (congestive) heart failure Code(s): I50.9 - Heart failure, unspecified Status: Acute Assessment and Plan: Acute decompensated heart failure with new diagnosis moderate LV systolic dysfunction as above EF 35%. Etiology per discussion above. Eventually will need to optimize medical therapy consider Entresto, spironolactone, Lasix, Toprol XL. However, given acute on chronic renal insufficiency unable to initiate this therapy at this time. Furthermore, significant and rather abrupt decline in her sodium level concerning and may be contributing to her or her overall sense of well-being. Need to monitor this closely. Nephrology consultation appreciated. Hydrochlorothiazide has already been discontinued. This may be a function of diuresis although this is fairly abrupt. (3) Cardiomyopathy: Code(s): I42.9 - Cardiomyopathy, unspecified Status: Acute Assessment and Plan: New diagnosis, most likely nonischemic precise etiology remains unclear per discussion above. (4) AMY (acute kidney injury): Code(s): N17.9 - Acute kidney failure, unspecified Status: Acute Assessment and Plan: Acute on chronic renal insufficiency creatinine 1.8 today with BUN of 48. Cautious diuresis. If continues to deteriorate she may require inotrope therapy. (5) Elevated troponin: Code(s): R77.8 - Other specified abnormalities of plasma proteins Status: Acute Assessment and Plan: Patient is a history of normal coronary anatomy left heart catheterization June 2020. Elevated troponin very likely demand ischemia setting of AFib with RVR and mild decompensated heart failure presentation. Troponin elevation not secondary to acute coronary syndrome and/or plaque rupture and it is very unlikely patient has developed significant obstructive CAD within the past 2 years without preceding anginal symptoms. (6) Hypertension: Code(s): I10 - Essential (primary) hypertension Stat
--- NOTE | 2022-08-17 15:18 | PM.IMPN ---
Progress Note: A&P Assessment and Plan (1) Atrial fibrillation with rapid ventricular response: Code(s): I48.91 - Unspecified atrial fibrillation Status: Acute Assessment and Plan: Precipitating etiology is not entirely clear. Appreciate cardiology consultation. Rate remaining controlled today on diltiazem drip. Continue to wean diltiazem. Metoprolol increased to 50 mg p.o. q.8 hours. Continue apixaban for stroke prophylaxis. NPO at midnight in the event electrical cardioversion is required (2) Elevated troponin: Code(s): R77.8 - Other specified abnormalities of plasma proteins Status: Acute Assessment and Plan: Most likely related to atrial fibrillation with rapid ventricular response and CHF. Not felt to be secondary to ACS. Normal coronary anatomy noted on previous left heart catheterization in June 2020. Echocardiogram is pending. (3) CHF (congestive heart failure): Qualifiers: Heart failure chronicity: acute Heart failure type: diastolic Qualified Code(s): I50.31 - Acute diastolic (congestive) heart failure Code(s): I50.9 - Heart failure, unspecified Status: Acute Assessment and Plan: Acute CHF exacerbation with complaints of dyspnea. Echocardiogram is pending, however bedside review per Cardiology demonstrated EF of 35%. Continue IV Lasix 20 mg IV b.i.d., however will need to proceed cautiously given worsening renal function. Will need to optimize medical therapy as tolerated with Entresto, spironolactone, Lasix, metoprolol, however will await further recommendations from Neurology and monitor renal function closely. Continue to monitor intake and output and daily weights (4) AMY (acute kidney injury): Code(s): N17.9 - Acute kidney failure, unspecified Status: Acute Assessment and Plan: Creatinine increased to 1.8 today. Likely due to diuresis. Consult to nephrology for further recommendations appreciated. Renal ultrasound pending. Hydrochlorothiazide on hold. Avoid any additional nephrotoxins. (5) Hyponatremia: Code(s): E87.1 - Hypo-osmolality and hyponatremia Status: Acute Assessment and Plan: Sodium with sharp decline from 138 to 125 in 24 hour period. May be related to diuresis. Patient feels poorly today, though no specific symptoms attributed to hyponatremia. Repeat sodium was 129. Continue to monitor closely to ensure appropriate rate of correction. Appreciate Nephrology recommendations. (6) Leukocytosis: Code(s): D72.829 - Elevated white blood cell count, unspecified Status: Acute Assessment and Plan: White blood cell count normal on presentation increased to 13.3 today. No obvious signs/symptoms of acute infection. Patient is not on steroids. UA slightly abnormal, however patient is asymptomatic, therefore will hold on treatment while awaiting urine culture results. CXR without findings to indicate pneumonia. Patient is afebrile. Continue to monitor CBC with differential (7) Chronic anticoagulation: Code(s): Z79.01 - [facility] (current) use of anticoagulants Status: Acute Assessment and Plan: Continue apixaban for stroke prophylaxis. (8) Hypertension: Code(s): I10 - Essential (primary) hypertension Status: Chronic Assessment and Plan: Blood pressures remaining stable. Last BP 115/72. Monitor closely while on Cardizem drip. Subjective Date/time seen: 08/17/22 15:18 Interval history: Date of service: 08/17/2022 Aleta Kenny is a 77-year-old with a history of paroxysmal atrial fibrillation on chronic anticoagulation, hypertension, and osteoarthritis who is seen in follow-up for atrial fibrillation with rapid ventricular response. She feels ?awful? today. Main complaint is that she is extremely weak. She endorses dry cough. Endorses dyspnea on exertion. Had an episode of nausea thi
--- NOTE | 2022-08-17 15:37 | ECHO_ITS ---
Patient Info Name: Aleta Kenny Age: 77 years : 1945 Gender: Female Ht: 62 in Wt: 216 lbs BSA: 2.12 m2 HR: 87 bpm BP: 105 / 69 mmHg Heart Rhythm: Atrial Fibrillation Technical Quality: Fair Exam Date: 08/17/2022 9:21 AM Exam Location: [facility] Patient Status: Inpatient Admit Date: 08/16/2022 Staff Ordering Physician: Kely Graf PA-C [employer] Supervisor: Maria Victoria Quiroga RDCS Attending Provider: Urvashi Ortiz PA-C Referring Physician: Homar ADAM; Exam Type: CA echo doppler color flow Study Info Indications - afib/rvr, shortness of breath, htn Complete two-dimensional, color flow and Doppler transthoracic echocardiogram is performed. Contrast/Agitated Saline Contrast/Ag. Saline: Definity Amount: 3.00 ml Administered By: Maria Victoria Quiroga RDCS Existing IV Access: Yes IV Access Condition: patent with no signs of infiltration Summary 1. Complete two-dimensional, color flow and Doppler transthoracic echocardiogram is performed. 2. Large left pleural effusion. 3. Left ventricular systolic function is moderately reduced, estimated at 35% with relative sparing of the bases in akinesis of the apex, apical inferior, apical anterior, mid inferior and mid anterior bejarano. 4. Left ventricular chamber dimension is normal. 5. There is no increased left ventricular wall thickness. 6. E/e' 22.9 is moderately elevated. 7. Right ventricular chamber dimension is moderately enlarged. 8. Right ventricular systolic function is moderately reduced with sparing of the RV base and akinesis of the RV apex to the mid RV. Prominent moderator band. 9. There is mild mitral valve regurgitation. 10. There is trace tricuspid valve regurgitation. 11. No pulmonary hypertension, estimated pulmonary arterial systolic pressure is 32 mmHg. Left Ventricle Left ventricular chamber dimension is normal. Left ventricular systolic function is moderately reduced, estimated at 35% with relative sparing of the bases in akinesis of the apex, apical inferior, apical anterior, mid inferior and mid anterior bejarano. There is no increased left ventricular wall thickness. The left ventricular diastolic function is indeterminate. E/e' 22.9 is moderately elevated. Right Ventricle Right ventricular chamber dimension is moderately enlarged. Right ventricular systolic function is moderately reduced with sparing of the RV base and akinesis of the RV apex to the mid RV. Prominent moderator band. Left Atria Left atrial chamber dimension is mildly enlarged. Right Atria Right atrial chamber dimension is mildly enlarged. Aortic Valve The aortic valve is not well visualized. There is no aortic valve stenosis. There is no aortic valve regurgitation. There is mild aortic valve calcification. Pulmonic Valve The pulmonic valve is not well visualized. Mitral Valve The mitral valve has thickened leaflets. There is mild mitral valve regurgitation. The mitral valve annulus is mildly calcified. Tricuspid Valve The tricuspid valve leaflets are normal. There is trace tricuspid valve regurgitation. No pulmonary hypertension, estimated pulmonary arterial systolic pressure is 32 mmHg. Pericardium/Pleural Large left pleural effusion. The pericardium appears normal. There is trivial pericardial effusion. Inferior Vena Cava Normal inferior vena cava with >50% collapse upon inspiration consistent with normal right atri
--- NOTE | 2022-08-17 16:07 | PM.CNNEP ---
Assessment and Plan Assessment and plan (1) AMY (acute kidney injury): Code(s): N17.9 - Acute kidney failure, unspecified Status: Acute Assessment and Plan: patient has acute kidney injury. Her creatinine was normal when she got here. His risen mildly during the hospital stay. It is possible that diuretics could have done this. Since she has not had much to eat or drink during the week she might have been a bit dehydrated. The pulmonary edema might have been due to the AFib with rapid ventricular rate. So she could just be dehydrated. If so then her creatinine could be elevated because of this. The atrial fibrillation rapid ventricular rate could lead to poor perfusion of the kidneys as well but since her heart rate is better that should not be an issue. Patient could have some other issue going on causing her GI symptoms before she came in. Perhaps the atrial fibrillation was because of the GI issues rather than a cause. perhaps she has some viral syndrome like COVID or the flu. I do not think she has allergic interstitial nephritis because the creatinine noe too quickly for it to be from this. A nephritis would be unusual in this clinical scenario but will check on serology. She did not have blood in the urine and has very little protein , even with a specific gravity 1.030. will check serology to be complete Rhabdomyolysis could do this. Will check a CPK vascular issues are possible as well but her liver enzymes are okay. hold diuretics , check urine electrolytes and CK. Serology and immuno fix, Discussed with CLARIBEL ortiz (2) Hyponatremia: Code(s): E87.1 - Hypo-osmolality and hyponatremia Status: Acute Assessment and Plan: the patient has low sodium. This may be because of pre renal issues. It was rather sudden. Her renal insufficiency would decrease the water excretory capability if she drink a lot of water. Will fluid restrict. Will see what the chest x-ray shows. If there is no problems with fluid then we might give some saline. check TSH, cortisol, osmolality. patient is NPO. (3) Leukocytosis: Code(s): D72.829 - Elevated white blood cell count, unspecified Status: Acute Assessment and Plan: The white count is elevated. Possibly she has some other sort of infection. CLARIBEL Ortiz His going to check cultures. (4) Shortness of breath: Code(s): R06.02 - Shortness of breath Status: Acute Assessment and Plan: Most likely due to her cardiac issues (5) Hypertension: Code(s): I10 - Essential (primary) hypertension Status: Acute Assessment and Plan: her blood pressure is under good control. In fact is better than usual. It seems like before this her blood pressure was generally 140 or higher. She is only on metoprolol at a relatively low dose and this is for rate control rather than for blood pressure. (6) PAF (paroxysmal atrial fibrillation): Code(s): I48.0 - Paroxysmal atrial fibrillation Status: Acute Assessment and Plan: The patient has atrial fibrillation. She is on Eliquis and metoprolol History of Present Illness Reason for Consult Consult date: 08/17/22 Chief Complaint Chief complaint: Afib with RVR History of Present Illness Narrative: Aleta is a very pleasant 77-year-old lady who has multiple medical problems including paroxysmal atrial fibrillation on anticoagulation going back about 2 years, hypertension, osteoarthritis, right carotid bruit. The patient has had atrial fibrillation for about 2 years. At for she had a heart rate of about 160 and had some palpitations but did not feel too bad. This was treated and she has done well on anticoagulation and metoprolol for heart rate control. For the last week or so she has had poor appetite. She has not been eating or drinking anything. She has had palpitations and shortness of breath. She thoug
[2022-08-17 17:56] LABS: Creatine Kinase 102 U/L (30-135)
[2022-08-17 17:58] LABS: Erythrocyte Sedimentation Rate 11 mm/hr (0-20)
[2022-08-17 17:59] LABS: Sodium 126 mmol/L (137-145)
[2022-08-17 18:08] LABS: Complement C3 114 mg/dL (88-165)
[2022-08-17 18:26] LABS: Creatinine Urine 215.5 mg/dL; Total Protein Urine Random 38 mg/dL; Ur Ttl Prot Creatinine Ratio 0.18 mg/mg (0-0.20)
[2022-08-17 18:38] LABS: Urea Random Urine 571 MG/DL
[2022-08-17 18:43] LABS: Sodium Urine Random < 5 meq/L
[2022-08-17 19:04] LABS: Glucose Point of Care 182 mg/dl (65-105)
[2022-08-17 20:49] LABS: Influenza A QL RT-PCR Negative (Negative); Influenza B QL RT-PCR Negative (Negative); SARS-CoV-2 RNA PCR Negative
[2022-08-18] VITALS (20 sets, daily range): BP systolic 93–132; BP diastolic 49–80; PULSE 59–121; RESP 16–20; TEMP 36.2–36.5; O2SAT 93–100
[2022-08-18 05:08] LABS: Basophils Percent Auto 0.3 % (0.2-1.2); Eosinophils Percent Auto 0.2 % (0-4.4); Hematocrit 41.4 % (37.0-47.0); Hemoglobin 13.5 g/dL (12.0-15.0); Immature Granulocyte Absolute 0.04 K/mm3 (0.00-0.031); Immature Granulocyte Percent A 0.3 % (0-0.5); Lymphocytes Absolute Auto 2.16 K/mm3 (0.9-3.2); Lymphocytes Percent Auto 17.4 % (18.3-44.2); Mean Corpuscular HGB Conc 32.6 g/dl (32-36); Mean Corpuscular Hemoglobin 29.7 pg (26-34); Mean Corpuscular Volume 91.2 fl (80-100); Monocytes Absolute Auto 1.1 K/mm3 (0.1-0.6); Neutrophils Percent Auto 72.8 % (45.5-73.1); Nucleated Red Blood Cells Perc 0.2 % (0.0-0.2); Platelet Count Result 231 k/mm3 (150-375); Red Blood Count 4.54 M/mm3 (4.2-5.4); Red Cell Distribution Width 13.5 % (11.5-14.5); White Blood Count 12.4 K/mm3 (4.5-10.0)
[2022-08-18 05:17] LABS: Alanine Aminotransferase 107 U/L (6-35); Albumin Level 3.5 g/dL (3.5-5.1); Alkaline Phosphatase 92 U/L (38-126); Anion Gap 8 mmol/L (8-16); Aspartate Amino Transferase 78 U/L (14-36); Bilirubin,Total 0.6 mg/dL (0.2-1.3); Blood Urea Nitrogen 48 mg/dL (7-17); Calcium 8.1 mg/dL (8.4-10.2); Carbon Dioxide 25 mmol/L (22-30); Chloride 95 mmol/L (98-107); Estimated CRCL calculation 33 ml/min; Estimated Glomerular Filt Rate 37; Glucose 105 mg/dL (65-110); Phosphorus 3.3 mg/dL (2.5-4.5); Potassium 3.9 mmol/L (3.4-5.0); Sodium 128 mmol/L (137-145)
[2022-08-18] MEDS: METOPROLOL TARTRATE 50 MG TAB PO ×4 (06:30→23:15)
[2022-08-18] MEDS: APIXABAN 5 MG TABLET PO ×2 (09:13→21:19)
[2022-08-18] MEDS: AZITHROMYCIN 250 MG TABLET 500 MG PO (11:46)
--- NOTE | 2022-08-18 11:55 | PM.PNCARD ---
Progress Note: A&P Assessment and Plan (1) Atrial fibrillation with rapid ventricular response: Code(s): I48.91 - Unspecified atrial fibrillation Status: Acute Assessment and Plan: Symptomatic recurrence of atrial fibrillation with rapid ventricular response with spontaneous conversion sinus rhythm on diltiazem infusion however with return of AFib refractory to medical therapy. Bedside review of echocardiogram reveals moderate LV dysfunction EF approximately 35% with severe hypokinesis at the apex relative sparing of the bases suggestive of a takotsubo cardiomyopathy. However, clinically patient does not endorse a history at all suggestive of a stress-induced cardiomyopathy or recent trauma. Furthermore, patient did not endorse anginal symptoms and had a normal coronary angiogram 2 years ago. Most likely explanation would be a tachycardia induced cardiomyopathy related to uncontrolled atrial fibrillation with RVR, however, the pattern noted on echocardiogram is not will be expected. While clinically the latter is most likely appearance of the LV were consistent with stress-induced cardiomyopathy. Stop Diltiazem given reduced LVEF. Increase Metoprolol from 50mg Q8H to Q6H. Will start Amiodarone. If the above does not rate control patient, then may need cardioversion. (2) CHF (congestive heart failure): Qualifiers: Heart failure type: diastolic Heart failure chronicity: acute Qualified Code(s): I50.31 - Acute diastolic (congestive) heart failure Code(s): I50.9 - Heart failure, unspecified Status: Acute Assessment and Plan: Acute decompensated heart failure with new diagnosis moderate LV systolic dysfunction as above EF 35%. Etiology per discussion above. Eventually will need to optimize medical therapy consider Entresto, spironolactone, Lasix, Toprol XL. However, given acute on chronic renal insufficiency unable to initiate this therapy at this time. Furthermore, significant and rather abrupt decline in her sodium level concerning and may be contributing to her or her overall sense of well-being. Need to monitor this closely. Nephrology consultation appreciated. Hydrochlorothiazide has already been discontinued. This may be a function of diuresis although this is fairly abrupt. (3) Cardiomyopathy: Code(s): I42.9 - Cardiomyopathy, unspecified Status: Acute Assessment and Plan: New diagnosis, most likely nonischemic precise etiology remains unclear per discussion above. (4) AMY (acute kidney injury): Code(s): N17.9 - Acute kidney failure, unspecified Status: Acute (5) Elevated troponin: Code(s): R77.8 - Other specified abnormalities of plasma proteins Status: Acute Assessment and Plan: Patient is a history of normal coronary anatomy left heart catheterization June 2020. Elevated troponin very likely demand ischemia setting of AFib with RVR and mild decompensated heart failure presentation. Troponin elevation not secondary to acute coronary syndrome and/or plaque rupture and it is very unlikely patient has developed significant obstructive CAD within the past 2 years without preceding anginal symptoms. (6) Hypertension: Code(s): I10 - Essential (primary) hypertension Status: Acute Assessment and Plan: Hemodynamically stable thus far. I would hold hydrochlorothiazide for the time being. (7) Aortic stenosis: Code(s): I35.0 - Nonrheumatic aortic (valve) stenosis Status: Acute Assessment and Plan: History of mild more recently moderate aortic stenosis. Repeat 2D echocardiogram this admission did not show . (8) Chronic anticoagulation: Code(s): Z79.01 - USP (current) use of anticoagulants Status: Acute Assessment and Plan: Eliquis 5 mg b.i.d.. Monitor renal function. Subjective Date/time seen: 08/18/22 11:55 Interval history: Follow-up for AFib with RVR, CH
--- NOTE | 2022-08-18 11:58 | PM.PNNEP ---
Progress Note: A&P Assessment and Plan (1) AMY (acute kidney injury): Code(s): N17.9 - Acute kidney failure, unspecified Status: Acute Assessment and Plan: patient has acute kidney injury. Her creatinine was normal when she got here. urine electrolytes are pre renal minimal amounts of protein in the urine CPK is normal renal ultrasound shows no obstruction and normal kidneys chest x-ray shows pneumonia her creatinine is better today most likely the rising creatinine was due to AFib with RVR, poor appetite leading to some dehydration. She had pulmonary edema possibly due to the AFib with RVR rather than being due to true volume overload. will continue current course. She is off diarrhea (2) Hyponatremia: Code(s): E87.1 - Hypo-osmolality and hyponatremia Status: Acute Assessment and Plan: the patient has low sodium. TSH and cortisol are okay. Most likely hyponatremia due to the renal insufficiency and water drinking. her sodium level is better. She is on a fluid restriction (3) Leukocytosis: Code(s): D72.829 - Elevated white blood cell count, unspecified Status: Acute Assessment and Plan: The white count is elevated. chest x-ray shows pneumonia. She is getting antibiotics she is feeling much better (4) Shortness of breath: Code(s): R06.02 - Shortness of breath Status: Acute Assessment and Plan: Most likely due to her cardiac issues this is better (5) Hypertension: Code(s): I10 - Essential (primary) hypertension Status: Acute Assessment and Plan: her blood pressure is under good control. she is on diltiazem and metoprolol, more for heart rate control. Her heart rate is 113 now (6) PAF (paroxysmal atrial fibrillation): Code(s): I48.0 - Paroxysmal atrial fibrillation Status: Acute Assessment and Plan: The patient has atrial fibrillation. She is on Eliquis and metoprolol as well as diltiazem now. Heart rate is 113 Subjective Date/time seen: 08/18/22 11:58 Interval history: patient feels much better today. She is less short of breath. She feels stronger. Review of Systems Cardiovascular: Cardiovascular: Reports no additional cardiovascular complaints Respiratory: Respiratory: Reports no additional respiratory complaints Gastrointestinal: Gastrointestinal: Reports no additional gastrointestinal complaints Genitourinary: Genitourinary: Reports no additional female genitourinary complaints Exam Narrative: WDWN in NAD skin no rash head ncat lungs Rare crackles cor reg no rub abd BS+ nontender and soft ext no edema. Objective Data Vital Signs Vital Signs: Vital Signs - 24 hr 08/17/22 13:03 08/17/22 13:00 08/17/22 12:00 Temperature 97.8 F Pulse Rate 115 H 115 H 109 H Respiratory Rate 22 H Blood Pressure 131/89 Pulse Oximetry 94 Oxygen Delivery Oxygen Flow Rate 08/17/22 12:05 08/17/22 13:09 08/17/22 12:00 Temperature Pulse Rate 105 H 105 H Respiratory Rate Blood Pressure Pulse Oximetry 94 Oxygen Delivery Nasal Cannula Oxygen Flow Rate 2 08/17/22 12:00 08/17/22 13:57 08/17/22 14:43 Temperature Pulse Rate 97 85 84 Respiratory Rate Blood Pressure Pulse Oximetry Oxygen Delivery Oxygen Flow Rate 08/17/22 14:41 08/17/22 14:00 08/17/22 16:11 Temperature Pulse Rate 81 95 77 Respiratory Rate Blood Pressure 115/72 Pulse Oximetry Oxygen Delivery Oxygen Flow Rate 08/17/22 17:11 08/17/22 16:00 08/17/22 16:23 Temperature 99.6 F Pulse Rate 71 84 Respiratory Rate 20 Blood Pressure 106/81 Pulse Oximetry 95 Oxygen Delivery Oxygen Flow Rate 08/17/22 18:01 08/17/22 16:00 08/17/22 18:00 Temperature Pulse Rate 81 79 Respiratory Rate Blood Pressure Pulse Oximetry 95 Oxygen Delivery Richie
[2022-08-18] MEDS: AMIODARONE 360 MG/D5W 200 ML 360 MG/200 ML BAG 33.33 MG IV CONT (12:30)
[2022-08-18] MEDS: TOLNAFTATE 1% POWDER 45 GM BTL 1 APPLIC TOPICAL ×2 (12:30→21:19)
--- NOTE | 2022-08-18 16:28 | PM.IMPN ---
Progress Note: A&P Assessment and Plan (1) Atrial fibrillation with rapid ventricular response: Code(s): I48.91 - Unspecified atrial fibrillation Status: Acute Assessment and Plan: Precipitating etiology is not entirely clear. Appreciate cardiology consultation. Heart rate in the 110s today. Cardizem drip discontinued given decreased ejection fraction. Started on amiodarone drip. Metoprolol increased to 50 mg q.6 hours. Cardioversion considered if unable to obtain rate control with above therapies. (2) Elevated troponin: Code(s): R77.8 - Other specified abnormalities of plasma proteins Status: Acute Assessment and Plan: Most likely related to atrial fibrillation with rapid ventricular response and CHF. Not felt to be secondary to ACS. Normal coronary anatomy noted on previous left heart catheterization in June 2020. (3) CHF (congestive heart failure): Qualifiers: Heart failure chronicity: acute Heart failure type: diastolic Qualified Code(s): I50.31 - Acute diastolic (congestive) heart failure Code(s): I50.9 - Heart failure, unspecified Status: Acute Assessment and Plan: Acute CHF exacerbation with complaints of dyspnea. Echocardiogram revealed reduced ejection fraction 35% with sparing of the bases and akinesis of the apex and apical bejarano, suggestive of taco unsuitable cardiomyopathy, however no recent history to support this. Continue IV Lasix 20 mg IV b.i.d., however will need to proceed cautiously given AMY. Will need to optimize medical therapy as tolerated with Entresto, spironolactone, Lasix, metoprolol, however will await further recommendations from Nephrology and monitor renal function closely. Continue to monitor intake and output and daily weights (4) AMY (acute kidney injury): Code(s): N17.9 - Acute kidney failure, unspecified Status: Acute Assessment and Plan: Creatinine increased up to 1.8. Likely due to diuresis and Afib with RVR. appreciate nephrology consultation. Renal ultrasound unremarkable. Hydrochlorothiazide on hold. Avoid any additional nephrotoxins. Continue to monitor renal function closely (5) Hyponatremia: Code(s): E87.1 - Hypo-osmolality and hyponatremia Status: Acute Assessment and Plan: Sodium with sharp decline from 138 to 125 in 24 hour period. May be related to diuresis. sodium with slow improvement to 128 today. Continue to monitor closely to ensure appropriate rate of correction. Appreciate Nephrology recommendations. Fluid restriction implemented. TSH and cortisol within normal limits. (6) CAP (community acquired pneumonia): Code(s): J18.9 - Pneumonia, unspecified organism Status: Acute Assessment and Plan: Patient with mild leukocytosis, therefore CXR evaluated which demonstrated findings of pneumonia. Could be contributing to patient's overall clinical picture with shortness of breath and cough. Begin ceftriaxone and azithromycin. Will attempt sputum culture. Supportive care to include bronchodilators, expectorants, incentive spirometry. Continue to monitor CBC (7) Chronic anticoagulation: Code(s): Z79.01 - USP (current) use of anticoagulants Status: Acute Assessment and Plan: Continue apixaban for stroke prophylaxis. (8) Hypertension: Code(s): I10 - Essential (primary) hypertension Status: Chronic Assessment and Plan: Blood pressures remaining stable. Last BP 110/80. Subjective Date/time seen: 08/18/22 16:28 Interval history: Date of service: 08/18/2022 Aleta Kenny is a 77-year-old with a history of paroxysmal atrial fibrillation on chronic anticoagulation, hypertension, and osteoarthritis who is seen in follow-up for atrial fibrillation with rapid ventricular response. She is feeling better today. Her shortness of breath has improved. She c
[2022-08-18] MEDS: AMIODARONE 360 MG/D5W 200 ML 360 MG/200 ML BAG 16.67 MG IV CONT (18:29)
[2022-08-19] VITALS (21 sets, daily range): BP systolic 85–114; BP diastolic 48–92; PULSE 90–129; RESP 16–20; TEMP 36.2–37.1; O2SAT 96–99
[2022-08-19 05:08] LABS: Hematocrit 39.2 % (37.0-47.0); Hemoglobin 12.7 g/dL (12.0-15.0); Mean Corpuscular HGB Conc 32.4 g/dl (32-36); Mean Corpuscular Hemoglobin 29.2 pg (26-34); Mean Corpuscular Volume 90.1 fl (80-100); Mean Platelet Volume 12.7 fl (7.4-10.4); Platelet Count Result 216 k/mm3 (150-375); Red Blood Count 4.35 M/mm3 (4.2-5.4); Red Cell Distribution Width 13.5 % (11.5-14.5); White Blood Count 9.6 K/mm3 (4.5-10.0)
[2022-08-19 05:32] LABS: Anion Gap 3 mmol/L (8-16); Blood Urea Nitrogen 35 mg/dL (7-17); Calcium 8.1 mg/dL (8.4-10.2); Carbon Dioxide 31 mmol/L (22-30); Chloride 95 mmol/L (98-107); Estimated CRCL calculation 46 ml/min; Estimated Glomerular Filt Rate 54; Glucose 106 mg/dL (65-110); Potassium 3.9 mmol/L (3.4-5.0); Sodium 129 mmol/L (137-145)
[2022-08-19] MEDS: METOPROLOL TARTRATE 50 MG TAB PO ×4 (05:51→23:36)
[2022-08-19] MEDS: AMIODARONE 360 MG/D5W 200 ML 360 MG/200 ML BAG 16.67 MG IV CONT ×2 (05:52→18:05)
[2022-08-19] MEDS: APIXABAN 5 MG TABLET PO ×2 (09:30→20:28)
[2022-08-19] MEDS: AZITHROMYCIN 250 MG TABLET 500 MG PO (09:30)
[2022-08-19] MEDS: TOLNAFTATE 1% POWDER 45 GM BTL 1 APPLIC TOPICAL ×2 (09:31→20:28)
[2022-08-19] MEDS: guaiFENesin 12 HR 600 MG TABCR PO ×2 (09:32→20:28)
--- NOTE | 2022-08-19 10:59 | PM.PNCARD ---
Progress Note: A&P Assessment and Plan (1) Atrial fibrillation with rapid ventricular response: Code(s): I48.91 - Unspecified atrial fibrillation Status: Acute Assessment and Plan: Symptomatic recurrence of atrial fibrillation with rapid ventricular response with spontaneous conversion sinus rhythm on diltiazem infusion however with return of AFib refractory to medical therapy. Bedside review of echocardiogram reveals moderate LV dysfunction EF approximately 35% with severe hypokinesis at the apex relative sparing of the bases suggestive of a takotsubo cardiomyopathy. However, clinically patient does not endorse a history at all suggestive of a stress-induced cardiomyopathy or recent trauma. Furthermore, patient did not endorse anginal symptoms and had a normal coronary angiogram 2 years ago. Most likely explanation would be a tachycardia induced cardiomyopathy related to uncontrolled atrial fibrillation with RVR, however, the pattern noted on echocardiogram is not will be expected. While clinically the latter is most likely appearance of the LV were consistent with stress-induced cardiomyopathy. Stop Diltiazem given reduced LVEF. Increased Metoprolol from 50mg Q8H to Q6H. Amiodarone drip started 08/18. If patient still in RVR by tomorrow, then will plan for cardioversion tomorrow. Patient to be NPO at midnight in case. Patient reports being fully complaint with her Eliquis and has not missed any doses for >4 weeks. Has been fully compliant with her Eliquis since she was started on it about 1-2 years ago. Therefore, FABRICE not needed prior to cardioversion. (2) CHF (congestive heart failure): Qualifiers: Heart failure type: diastolic Heart failure chronicity: acute Qualified Code(s): I50.31 - Acute diastolic (congestive) heart failure Code(s): I50.9 - Heart failure, unspecified Status: Acute Assessment and Plan: Acute decompensated heart failure with new diagnosis moderate LV systolic dysfunction as above EF 35%. Etiology per discussion above. Eventually will need to optimize medical therapy consider Entresto, spironolactone, Lasix, Toprol XL. However, given acute on chronic renal insufficiency unable to initiate this therapy at this time. Furthermore, significant and rather abrupt decline in her sodium level concerning and may be contributing to her or her overall sense of well-being. Need to monitor this closely. Nephrology consultation appreciated. Hydrochlorothiazide has already been discontinued. This may be a function of diuresis although this is fairly abrupt. (3) Cardiomyopathy: Code(s): I42.9 - Cardiomyopathy, unspecified Status: Acute Assessment and Plan: New diagnosis, most likely nonischemic precise etiology remains unclear per discussion above. (4) AMY (acute kidney injury): Code(s): N17.9 - Acute kidney failure, unspecified Status: Acute (5) Elevated troponin: Code(s): R77.8 - Other specified abnormalities of plasma proteins Status: Acute Assessment and Plan: Patient is a history of normal coronary anatomy left heart catheterization June 2020. Elevated troponin very likely demand ischemia setting of AFib with RVR and mild decompensated heart failure presentation. Troponin elevation not secondary to acute coronary syndrome and/or plaque rupture and it is very unlikely patient has developed significant obstructive CAD within the past 2 years without preceding anginal symptoms. (6) Hypertension: Code(s): I10 - Essential (primary) hypertension Status: Acute Assessment and Plan: Hemodynamically stable thus far. I would hold hydrochlorothiazide for the time being. (7) Aortic stenosis: Code(s): I35.0 - Nonrheumatic aortic (valve) stenosis Status: Acute Assessment and Plan: History of mild more recently moderate aortic stenosis. Repeat 2D echocardiogram this admission did not show . (8)
--- NOTE | 2022-08-19 12:17 | PM.PNNEP ---
Progress Note: A&P Assessment and Plan (1) AMY (acute kidney injury): Code(s): N17.9 - Acute kidney failure, unspecified Status: Acute Assessment and Plan: resolving evaluation to date: urine electrolytes pre-renal mininal proteinuria CPK normal renal ultrasound unremarkable CXR with pneumonia suspect etiology due to Afib with RVR coupled with poor appetite leading to volume depletion continue current therapy (2) Hyponatremia: Code(s): E87.1 - Hypo-osmolality and hyponatremia Status: Acute Assessment and Plan: improving suspec due to renal insufficiency and possibly excess free water intake TSH and cortisol okay continue fluid restriction (3) Shortness of breath: Code(s): R06.02 - Shortness of breath Status: Acute Assessment and Plan: clinically better likely due to cardiac issues (Afib with RVR...etc) (4) PAF (paroxysmal atrial fibrillation): Code(s): I48.0 - Paroxysmal atrial fibrillation Status: Acute Assessment and Plan: continue rate control strategy on anticoagulation Cardiology following (5) Hypertension: Code(s): I10 - Essential (primary) hypertension Status: Chronic Assessment and Plan: reasonable control suspect meds for AFib are helping keep this controlled Will continue to follow from a distance. Subjective Date/time seen: 08/19/22 12:17 Chart reviewed -- assuming care from Dr. Lira; no acute complaints voiced at the time of my visit; renal function appears to have normalized; amiodarone started for better control of heart rate; no other acute issues/events to report currently. Exam Narrative: General: WD/WN female in NAD Heart: IRRR,normal S1 and S2; no rub Lungs: few crackles at bases Abdomen: soft, nontender, nondistended, positive bowel sounds Extremities: no cyanosis or clubbing; no edema Skin: warm and dry Objective Data Vital Signs Vital Signs: Vital Signs Temp Pulse Resp BP Pulse Ox O2 Del Method O2 Flow Rate 08/19/22 12:00 98.7 F 125 H 16 114/92 H 98 08/19/22 08:00 96 Room Air 08/19/22 10:00 104 H 08/19/22 08:00 101 H 08/19/22 08:00 97.4 F L 111 H 18 108/88 98 08/19/22 06:00 90 08/19/22 05:51 104 H 08/19/22 04:51 107/60 08/19/22 04:22 97.5 F L 92 20 85/48 L 98 08/19/22 04:00 99 Nasal Cannula 2 08/19/22 04:00 104 H 08/19/22 02:00 116 H 08/19/22 00:00 107 H 20 99 Nasal Cannula 2 08/19/22 00:00 109 H 08/18/22 23:15 111 H 08/18/22 23:13 97.2 F L 111 H 16 98/60 L 99 08/18/22 22:00 101 H 08/18/22 20:00 107 H 20 99 Nasal Cannula 2 08/18/22 20:00 109 H 08/18/22 20:15 97.3 F L 107 H 20 116/49 L 99 08/18/22 18:29 106 H 08/18/22 18:00 111 H 08/18/22 16:00 120 H 08/18/22 17:18 121 H 08/18/22 16:00 97.6 F 103 H 20 107/62 100 08/18/22 16:00 100 Nasal Cannula 2 08/18/22 14:00 111 H 08/18/22 12:57 Nasal Cannula 2 Intake/Output Intake/Output: Intake & Output 08/16/22 08/17/22 08/18/22 08/19/22 23:59 23:59 23:59 23:59 Intake Total 1989 1152 1580 902.5 Output Total 1200 1000 1500 700 Balance 790 152 80 202.5 Meds/Results Medications: Active Medications Generic Name Dose Route Start Last Admin Trade Name Alfa PRN Reason Stop Dose Admin Acetaminophen 650 mg 08/15/22 15:59 Acetaminophen 325 Mg Tablet PO Q6H PRN Mild Pain (1-3) or Fever Apixaban 5 mg 08/15/22 23:05 08/19/22 09:30 Apixaban 5 Mg Tablet PO 5 mg Q12HR BIBI Administration Azithromycin 500 mg 08/18/22 09:45 08/19/22 09:30 Azithromycin 250 Mg Tablet PO 500 mg DAILY BIBI Administration Furosemide 20 mg 08/15/22 17:00 08/17/22 16:16 Furosemide Inj 40 Mg/4 Ml Vial IV PUSH Not Given BID [facility] Guaifenesi
--- NOTE | 2022-08-19 18:37 | PM.IMPN ---
Progress Note: A&P Assessment and Plan (1) Atrial fibrillation with rapid ventricular response: Code(s): I48.91 - Unspecified atrial fibrillation Status: Acute Assessment and Plan: 08/19/2022 interval history: patient with history of atrial fibrillation now in RVR seen by cardiology place the patient Cardizem drip however it was discontinued due to cardiomyopathy placed on and amiodarone drip, and metoprolol 50 mg every 6 hours, patient converted to sinus rhythm with medical treatment however return back to AFib seen by cardiology recommended cardioversion, patient is scheduled for cardioversion and further recommendation to follow. as patient would been chronically anticoagulated will not need FABRICE. (2) Elevated troponin: Code(s): R77.8 - Other specified abnormalities of plasma proteins Status: Acute Assessment and Plan: most likely demand ischemia due to atrial fibrillation RVR seen by cardiology no ischemic workup is recommended (3) CHF (congestive heart failure): Qualifiers: Heart failure type: diastolic Heart failure chronicity: acute Qualified Code(s): I50.31 - Acute diastolic (congestive) heart failure Code(s): I50.9 - Heart failure, unspecified Status: Acute Assessment and Plan: patient with history of cardiomyopathy with ejection fraction of 35% patient is being diuresed (4) AMY (acute kidney injury): Code(s): N17.9 - Acute kidney failure, unspecified Status: Acute Assessment and Plan: patient with acute on chronic kidney disease patient is being diuresed will monitor Subjective Date/time seen: 08/19/22 18:37 Precipitating etiology is not entirely clear.? Appreciate cardiology consultation.? Heart rate in the 110s today.? Cardizem drip discontinued given decreased ejection fraction.? Started on amiodarone drip.? Metoprolol increased to 50 mg q.6 hours. ? Cardioversion considered if unable to obtain rate control with above therapies. 08/19/2022 interval history: patient with history of atrial fibrillation now in RVR seen by cardiology place the patient Cardizem drip however it was discontinued due to cardiomyopathy placed on and amiodarone drip, and metoprolol 50 mg every 6 hours, patient converted to sinus rhythm with medical treatment however return back to AFib seen by cardiology recommended cardioversion, patient is scheduled for cardioversion and further recommendation to follow. as patient would been chronically anticoagulated will not need FABRICE. Review of Systems Review of Systems: 8-point ROS obtained. Negative, unless stated in HPI. Exam Narrative: morbidly obese Patient is comfortable, NAD HEENT: eyes are clear and none icteric LUNGS: normal respiratory effort ABD: distended Lower extremities: no edema SKIN: nonjaundiced Neuro: grossly intact. Objective Data Vital Signs Vital Signs: Vital Signs - 24 hr 08/18/22 20:15 08/18/22 20:00 08/18/22 20:00 Temperature 97.3 F L Pulse Rate 107 H 109 H 107 H Respiratory Rate 20 20 Blood Pressure 116/49 L Pulse Oximetry 99 99 Oxygen Delivery Nasal Cannula Oxygen Flow Rate 2 08/18/22 22:00 08/18/22 23:13 08/18/22 23:15 Temperature 97.2 F L Pulse Rate 101 H 111 H 111 H Respiratory Rate 16 Blood Pressure 98/60 L Pulse Oximetry 99 Oxygen Delivery Oxygen Flow Rate 08/19/22 00:00 08/19/22 00:00 08/19/22 02:00 Temperature Pulse Rate 109 H 107 H 116 H Respiratory Rate 20 Blood Pressure Pulse Oximetry 99 Oxygen Delivery Nasal Cannula Oxygen Flow Rate 2 08/19/22 04:00 08/19/22 04:00 08/19/22 04:22 Temperature 97.5 F L Pulse Rate 104 H 92 Respiratory Rate 20 Blood Pressure 85/48 L Pulse Oximetry 99 98 Oxygen Delivery Nasal Cannula Oxygen Flow Rate 2 08/19/22 04:51 08/19/22 05:51 08/19/22 06:00 Temperature Pulse Rate 104 H 90 Respiratory Rate Blood Pressure 107/60 Pulse Oxime
[2022-08-19 20:06] LABS: Osmolality, Urine 491 mOsm/kg (50-1200)
[2022-08-20] VITALS (28 sets, daily range): BP systolic 79–112; BP diastolic 45–81; PULSE 68–122; RESP 12–20; TEMP 36–36.4; O2SAT 95–100
[2022-08-20 05:01] LABS: Hematocrit 39.4 % (37.0-47.0); Hemoglobin 12.6 g/dL (12.0-15.0); Mean Corpuscular Hemoglobin 28.9 pg (26-34); Mean Corpuscular Volume 90.4 fl (80-100); Mean Platelet Volume 12.4 fl (7.4-10.4); Platelet Count Result 228 k/mm3 (150-375); Red Blood Count 4.36 M/mm3 (4.2-5.4); Red Cell Distribution Width 13.6 % (11.5-14.5); White Blood Count 7.5 K/mm3 (4.5-10.0)
[2022-08-20] MEDS: METOPROLOL TARTRATE 50 MG TAB PO (05:12)
[2022-08-20 05:15] LABS: Anion Gap 4 mmol/L (8-16); Blood Urea Nitrogen 23 mg/dL (7-17); Calcium 7.8 mg/dL (8.4-10.2); Carbon Dioxide 31 mmol/L (22-30); Chloride 98 mmol/L (98-107); Estimated CRCL calculation 56 ml/min; Estimated Glomerular Filt Rate > 60; Glucose 102 mg/dL (65-110); Potassium 3.3 mmol/L (3.4-5.0); Sodium 133 mmol/L (137-145)
[2022-08-20] MEDS: AMIODARONE 360 MG/D5W 200 ML 360 MG/200 ML BAG 16.67 MG IV CONT (05:57)
--- NOTE | 2022-08-20 08:45 | PM.PNCARD ---
Progress Note: A&P Assessment and Plan (1) Atrial fibrillation with rapid ventricular response: Code(s): I48.91 - Unspecified atrial fibrillation Status: Acute Assessment and Plan: Symptomatic recurrence of atrial fibrillation with rapid ventricular response with spontaneous conversion sinus rhythm on diltiazem infusion however with return of AFib refractory to medical therapy. Bedside review of echocardiogram reveals moderate LV dysfunction EF approximately 35% with severe hypokinesis at the apex relative sparing of the bases suggestive of a takotsubo cardiomyopathy. However, clinically patient does not endorse a history at all suggestive of a stress-induced cardiomyopathy or recent trauma. Furthermore, patient did not endorse anginal symptoms and had a normal coronary angiogram 2 years ago. Most likely explanation would be a tachycardia induced cardiomyopathy related to uncontrolled atrial fibrillation with RVR, however, the pattern noted on echocardiogram is not will be expected. While clinically the latter is most likely appearance of the LV were consistent with stress-induced cardiomyopathy. Stop Diltiazem given reduced LVEF. Increased Metoprolol from 50mg Q8H to Q6H. Amiodarone drip started 08/18. 08/19: If patient still in RVR by tomorrow, then will plan for cardioversion tomorrow. Patient to be NPO at midnight in case. Patient reports being fully complaint with her Eliquis and has not missed any doses for >4 weeks. Has been fully compliant with her Eliquis since she was started on it about 1-2 years ago. Therefore, FABRICE not needed prior to cardioversion. 08/20: Cardioversion this morning. Will plan to transition IV Amiodarone to PO Amiodarone after her cardioversion. Will transition her Metoprolol to long-acting. (2) CHF (congestive heart failure): Qualifiers: Heart failure type: diastolic Heart failure chronicity: acute Qualified Code(s): I50.31 - Acute diastolic (congestive) heart failure Code(s): I50.9 - Heart failure, unspecified Status: Acute Assessment and Plan: Acute decompensated heart failure with new diagnosis moderate LV systolic dysfunction as above EF 35%. Etiology per discussion above. Eventually will need to optimize medical therapy consider Entresto, spironolactone, Lasix, Toprol XL. However, given acute on chronic renal insufficiency unable to initiate this therapy at this time. Furthermore, significant and rather abrupt decline in her sodium level concerning and may be contributing to her or her overall sense of well-being. Need to monitor this closely. Nephrology consultation appreciated. Hydrochlorothiazide has already been discontinued. This may be a function of diuresis although this is fairly abrupt. (3) Cardiomyopathy: Code(s): I42.9 - Cardiomyopathy, unspecified Status: Acute Assessment and Plan: New diagnosis, most likely nonischemic precise etiology remains unclear per discussion above. (4) AYM (acute kidney injury): Code(s): N17.9 - Acute kidney failure, unspecified Status: Acute (5) Elevated troponin: Code(s): R77.8 - Other specified abnormalities of plasma proteins Status: Acute Assessment and Plan: Patient is a history of normal coronary anatomy left heart catheterization June 2020. Elevated troponin very likely demand ischemia setting of AFib with RVR and mild decompensated heart failure presentation. Troponin elevation not secondary to acute coronary syndrome and/or plaque rupture and it is very unlikely patient has developed significant obstructive CAD within the past 2 years without preceding anginal symptoms. (6) Hypertension: Code(s): I10 - Essential (primary) hypertension Status: Chronic Assessment and Plan: Hemodynamically stable thus far. I would hold hydrochlorothiazide for the time being. (7) Aortic stenosis: Code(s): I35.0 - Nonrheumatic aortic (valve) st
--- NOTE | 2022-08-20 08:50 | WPDCARDVER ---
Cardioversion Cardioversion Date of procedure: 08/20/22 Procedure: Elective electrical synchronized cardioversion. Pre-op diagnosis: Atrial fibrillation with RVR Post-op diagnosis: Other (Atrial fibrillation) Indications: Atrial fibrillation with RVR, refractory to medical therapy Description of procedure: Procedure start time: :10 Procedure end time: : Patient brought to the chest pain center. Time out performed. Defibrillator pads were placed in an anterior-posterior position. Sedation was administered. Once patient was adequately sedated, synchronized cardioversion was performed with 200 joules. After this first shock, patient had a few sinus beats but then went back into atrial fibrillation. A second synchronized cardioversion was performed with 360 joules. After this second shock, patient had a few sinus beats but then went again back into atrial fibrillation. The pads were then placed in an anterior apical position. A third shock was administered at 360 joules. Patient remained in atrial fibrillation. Since total of 3 shocks were already administered, we concluded procedure. Sedation: Total of Versed 3mg and Fentanyl 75mg were administered by NIRAV Lacy. Findings: Unsuccessful attempt at latter-day of sinus rhythm with 3 cardioversions. Conclusion: Unsuccessful attempt at latter-day of sinus rhythm with 3 cardioversions.
[2022-08-20] MEDS: APIXABAN 5 MG TABLET PO ×2 (09:05→20:19)
[2022-08-20] MEDS: POTASSIUM CHLORIDE INJ 40 MEQ in SODIUM CHLORIDE 0.9% IV 500 ML 130 MEQ IVPB (09:06)
--- NOTE | 2022-08-20 09:14 | ECG_ITS ---
Measurements Intervals Rankin Rate: 104 P: AL: 0 QRS: 14 QRSD: 87 T: -43 QT: 409 QTc: 539 Interpretive Statements ATRIAL FIBRILLATION WITH RAPID VENTRICULAR RESPONSE ST DEVIATION AND MODERATE T-WAVE ABNORMALITY, CONSIDER ANTERIOR ISCHEMIA [-0.1+ mV T WAVE IN V3/V4] COMPARED TO ECG 08/16/2022 08:26:24 HEART RATE IS SLOWER NOW Electronically Signed On 08-20-2022 14:54:48 [employer]ENT STRATEGY LEAD by Tyrell Dennis M.D.
--- NOTE | 2022-08-20 10:07 | PCOTNOTE ---
Attempted OT evaluation, pt off floor. Will follow
--- NOTE | 2022-08-20 10:08 | SUR.PHASEII ---
phase 2 complete @1005. pt awake and alert VSS report given to IMU RN.
[2022-08-20] MEDS: METOPROLOL SUCCINATE EXT REL 100 MG TABCR 200 MG PO (11:31)
[2022-08-20] MEDS: AMIODARONE HCL 200 MG TABLET 400 MG PO ×2 (11:31→17:47)
[2022-08-20] MEDS: guaiFENesin 12 HR 600 MG TABCR PO ×2 (11:32→20:19)
[2022-08-20] MEDS: AZITHROMYCIN 250 MG TABLET 500 MG PO (11:32)
[2022-08-20] MEDS: TOLNAFTATE 1% POWDER 45 GM BTL 1 APPLIC TOPICAL ×2 (11:34→20:19)
[2022-08-20 11:44] LABS: Kappa\\Lambda Light Chains 1.61 (0.26-1.65); Lambda Light Chain 13.4 mg/L (5.7-26.3)
[2022-08-20 12:50] LABS: Anti Glomerular Basement Memb <1.0 AI (<1.0)
[2022-08-20] MEDS: DIGOXIN 250 MCG TABLET PO (15:16)
[2022-08-20 18:29] LABS: Complement Total CH50 >60 U/mL (31-60)
--- NOTE | 2022-08-20 18:44 | PM.IMPN ---
Progress Note: A&P Assessment and Plan (1) Atrial fibrillation with rapid ventricular response: Code(s): I48.91 - Unspecified atrial fibrillation Status: Acute Assessment and Plan: 08/20/2022 interval history: patient with history of atrial fibrillation now in RVR seen by cardiology place the patient Cardizem drip however it was discontinued due to cardiomyopathy placed on and amiodarone drip, and metoprolol 50 mg every 6 hours, patient converted to sinus rhythm with medical treatment however return back to AFib seen by cardiology recommended cardioversion, today patient was taken to the cardiac mechanical laboratory technician and 3 times attempted to cardioversion it was unsuccessful patient remains clinically stable will continue to monitor. (2) Elevated troponin: Code(s): R77.8 - Other specified abnormalities of plasma proteins Status: Acute Assessment and Plan: most likely demand ischemia due to atrial fibrillation RVR seen by cardiology no ischemic workup is recommended (3) CHF (congestive heart failure): Qualifiers: Heart failure type: diastolic Heart failure chronicity: acute Qualified Code(s): I50.31 - Acute diastolic (congestive) heart failure Code(s): I50.9 - Heart failure, unspecified Status: Acute Assessment and Plan: patient with history of cardiomyopathy with ejection fraction of 35% patient is being diuresed (4) AMY (acute kidney injury): Code(s): N17.9 - Acute kidney failure, unspecified Status: Acute Assessment and Plan: patient with acute on chronic kidney disease patient is being diuresed will monitor Subjective Date/time seen: 08/20/22 18:44 08/20/2022 interval history: patient with history of atrial fibrillation now in RVR seen by cardiology place the patient Cardizem drip however it was discontinued due to cardiomyopathy placed on and amiodarone drip, and metoprolol 50 mg every 6 hours, patient converted to sinus rhythm with medical treatment however return back to AFib seen by cardiology recommended cardioversion, today patient was taken to the cardiac mechanical laboratory technician and 3 times attempted to cardioversion it was unsuccessful patient remains clinically stable will continue to monitor. Review of Systems Review of Systems: All systems reviewed & are unremarkable except as noted in HPI and below Exam Narrative: morbidly obese Patient is comfortable, NAD HEENT: eyes are clear and none icteric LUNGS: normal respiratory effort ABD: distended Lower extremities: no edema SKIN: nonjaundiced Neuro: grossly intact. Objective Data Vital Signs Vital Signs: Vital Signs - 24 hr 08/19/22 20:26 08/19/22 20:00 08/19/22 20:00 Temperature 97.2 F L Pulse Rate 112 H 93 Respiratory Rate 20 Blood Pressure 103/70 Pulse Oximetry 99 Oxygen Delivery Room Air Oxygen Flow Rate 08/19/22 22:00 08/19/22 23:36 08/19/22 23:36 Temperature 97.6 F Pulse Rate 118 H 110 H 110 H Respiratory Rate 18 Blood Pressure 103/68 Pulse Oximetry 97 Oxygen Delivery Oxygen Flow Rate 08/19/22 23:56 08/20/22 00:00 08/20/22 00:00 Temperature 97.2 F L Pulse Rate 97 93 Respiratory Rate 20 Blood Pressure 103/68 Pulse Oximetry 99 Oxygen Delivery Room Air Oxygen Flow Rate 08/20/22 02:00 08/20/22 04:00 08/20/22 04:00 Temperature Pulse Rate 107 H 96 Respiratory Rate Blood Pressure Pulse Oximetry Oxygen Delivery Room Air Oxygen Flow Rate 08/20/22 04:37 08/20/22 05:12 08/20/22 06:00 Temperature 97.5 F L Pulse Rate 88 97 96 Respiratory Rate 20 Blood Pressure 104/75 Pulse Oximetry 97 Oxygen Delivery Oxygen Flow Rate 08/20/22 09:00 08/20/22 09:10 08/20/22 09:25 Temperature Pulse Rate 100 122 H 100 Respiratory Rate 15 16 13 Blood Pressure 112/67 99/55 L 105/70 Pulse Oximetry 100 100 99 Oxygen Delivery Nasal Cannula Nasal Cannula Nasal Cannula Oxygen Flow Rate 3 3 5
[2022-08-21] VITALS (13 sets, daily range): BP systolic 111; BP diastolic 68–83; PULSE 81–129; RESP 16–20; TEMP 36.1–36.2; O2SAT 98
[2022-08-21 05:08] LABS: Hematocrit 40.1 % (37.0-47.0); Hemoglobin 12.6 g/dL (12.0-15.0); Mean Corpuscular HGB Conc 31.4 g/dl (32-36); Mean Corpuscular Hemoglobin 28.8 pg (26-34); Mean Corpuscular Volume 91.8 fl (80-100); Mean Platelet Volume 12.4 fl (7.4-10.4); Platelet Count Result 227 k/mm3 (150-375); Red Blood Count 4.37 M/mm3 (4.2-5.4); Red Cell Distribution Width 14.2 % (11.5-14.5); White Blood Count 7.8 K/mm3 (4.5-10.0)
[2022-08-21 05:15] LABS: Anion Gap 4 mmol/L (8-16); Blood Urea Nitrogen 18 mg/dL (7-17); Calcium 7.6 mg/dL (8.4-10.2); Carbon Dioxide 28 mmol/L (22-30); Chloride 105 mmol/L (98-107); Estimated CRCL calculation 56 ml/min; Estimated Glomerular Filt Rate > 60; Glucose 94 mg/dL (65-110); Potassium 3.8 mmol/L (3.4-5.0); Sodium 137 mmol/L (137-145)
[2022-08-21] MEDS: guaiFENesin 12 HR 600 MG TABCR PO (08:47)
[2022-08-21] MEDS: AZITHROMYCIN 250 MG TABLET 500 MG PO (08:47)
[2022-08-21] MEDS: METOPROLOL SUCCINATE EXT REL 100 MG TABCR 200 MG PO (08:47)
[2022-08-21] MEDS: APIXABAN 5 MG TABLET PO ×2 (08:47→20:00)
[2022-08-21] MEDS: AMIODARONE HCL 200 MG TABLET 400 MG PO ×2 (08:47→17:29)
[2022-08-21] MEDS: TOLNAFTATE 1% POWDER 45 GM BTL 1 APPLIC TOPICAL ×2 (08:48→20:00)
--- NOTE | 2022-08-21 09:03 | PM.PNCARD ---
Progress Note: A&P Assessment and Plan (1) PAF (paroxysmal atrial fibrillation): Code(s): I48.0 - Paroxysmal atrial fibrillation Status: Acute Plan 77-year-old woman with atrial fibrillation which thus far has been resistant to rhythm control despite loading with IV amiodarone. Because of her reduction in ejection fraction I believe we should continue our efforts to try to provide rhythm control rather than simple rate control. Along those lines I am going to add some digoxin to her regimen as her renal function is now normal and heart rate control is suboptimal despite the current regimen as described above. When her rate is adequately controlled the plan should be for discharge and then follow up with my partner, Dr. Abad for another attempt at DC cardioversion approximately 1 month from now. EP consultation is also a possibility for her in this setting. John Aragon MD [facility] Subjective Date/time seen: Date of service: 08/21/22 09:03 Interval history: Follow-up visit in this 77-year-old woman with: History of paroxysmal atrial fibrillation admitted with a recurrence of her arrhythmia along with a decline in left ventricular systolic function noted on echocardiogram. Attempt at DC cardioversion yesterday failed. She is asymptomatic this morning and feels relatively well. Receiving high dose of metoprolol as well as 400 mg p.o. q.12 hours of amiodarone. Heart rate between 110-120 at rest. Exam Const: General: comfortable and no acute distress Other: Pleasant obese lady no distress HENMT: Mouth: Yes moist mucous membranes Eyes: Sclera: sclerae normal Neck: Neck: supple and no JVD Resp: Effort & Inspection: normal respiratory effort Other: Scattered rhonchi are noted Cardio: Rate: tachycardic Rhythm: abnormal rhythm irregularly irregular GI: GI Palp: Yes Soft to palpation Auscultation: normal bowel sounds Skin: General skin exam: normal color Neuro: Other: Alert and oriented, normal mentation Extrem: Other: Trivial pretibial edema Objective Data Vital Signs Vital Signs: Vital Signs - 24 hr 08/20/22 09:10 08/20/22 09:25 08/20/22 09:30 Temperature Pulse Rate 122 H 100 96 Respiratory Rate 16 13 12 Blood Pressure 99/55 L 105/70 112/57 L Pulse Oximetry 100 99 99 Oxygen Delivery Nasal Cannula Nasal Cannula Nasal Cannula Oxygen Flow Rate 3 5 5 08/20/22 09:15 08/20/22 09:20 08/20/22 09:45 Temperature Pulse Rate 105 H 97 102 H Respiratory Rate 20 17 19 Blood Pressure 79/45 L 93/74 L 103/69 Pulse Oximetry 98 96 100 Oxygen Delivery Nasal Cannula Nasal Cannula Nasal Cannula Oxygen Flow Rate 5 5 2 08/20/22 10:00 08/20/22 10:23 08/20/22 11:31 Temperature 36.4 C L Pulse Rate 109 H 101 H 105 H Respiratory Rate 16 20 Blood Pressure 101/73 103/61 Pulse Oximetry 100 100 Oxygen Delivery Room Air Oxygen Flow Rate 08/20/22 11:31 08/20/22 11:45 08/20/22 15:16 Temperature 36.0 C L Pulse Rate 104 H 97 113 H Respiratory Rate 20 Blood Pressure 101/68 Pulse Oximetry 96 Oxygen Delivery Oxygen Flow Rate 08/20/22 16:00 08/20/22 12:00 08/20/22 10:00 Temperature 36.4 C Pulse Rate 112 H 102 H Respiratory Rate 14 Blood Pressure 91/76 L Pulse Oximetry 95 Oxygen Delivery Room Air Oxygen Flow Rate 08/20/22 14:00 08/20/22 12:00 08/20/22 16:00 Temperature Pulse Rate 119 H 111 H 101 H Respiratory Rate Blood Pressure Pulse Oximetry Oxygen Delivery Oxygen Flow Rate 08/20/22 17:47 08/20/22 18:00 08/20/22 20:00 Temperature Pulse Rate 121 H 103 H 108 H Respiratory Rate Blood Pressure Pulse Oximetry Oxygen Delivery Oxygen Flow Rate 08/20/22 20:00 08/20/22 22:00 08/20/22 23:50 Temperature 36.4 C L Pulse Rate 108 H 121 H 108 H Respiratory Rate 14 18 Blood Pressure 90/65 L Pulse Oximetry 95 98 Oxygen Delivery Room Air Oxygen Flow Rate 08/21/22 00:00 08/21/22
[2022-08-21] MEDS: DIGOXIN 250 MCG TABLET 500 MCG PO (09:57)
--- NOTE | 2022-08-21 17:27 | PM.IMPN ---
Progress Note: A&P Assessment and Plan (1) Atrial fibrillation with rapid ventricular response: Code(s): I48.91 - Unspecified atrial fibrillation Status: Acute Assessment and Plan: 08/21/2022 interval history: patient with history of atrial fibrillation now in RVR seen by cardiology place the patient Cardizem drip however it was discontinued due to cardiomyopathy placed on and amiodarone drip, and metoprolol 50 mg every 6 hours, patient converted to sinus rhythm with medical treatment however return back to AFib seen by cardiology recommended cardioversion, on 08/20 patient was taken to the cardiac research laboratory manager and 3 times attempted to cardioversion it was unsuccessful, today patient was seen by Cardiology and to control the rate added digoxin, recommended will monitor patient overnight, patient may need repeat cardioversion in about a month, patient remains clinically stable will continue to monitor. (2) Elevated troponin: Code(s): R77.8 - Other specified abnormalities of plasma proteins Status: Acute Assessment and Plan: most likely demand ischemia due to atrial fibrillation RVR seen by cardiology no ischemic workup is recommended (3) CHF (congestive heart failure): Qualifiers: Heart failure type: diastolic Heart failure chronicity: acute Qualified Code(s): I50.31 - Acute diastolic (congestive) heart failure Code(s): I50.9 - Heart failure, unspecified Status: Acute Assessment and Plan: patient with history of cardiomyopathy with ejection fraction of 35% patient is being diuresed (4) AMY (acute kidney injury): Code(s): N17.9 - Acute kidney failure, unspecified Status: Acute Assessment and Plan: patient with acute on chronic kidney disease patient is being diuresed will monitor Subjective Date/time seen: 08/21/22 17:27 08/21/2022 interval history: patient with history of atrial fibrillation now in RVR seen by cardiology place the patient Cardizem drip however it was discontinued due to cardiomyopathy placed on and amiodarone drip, and metoprolol 50 mg every 6 hours, patient converted to sinus rhythm with medical treatment however return back to AFib seen by cardiology recommended cardioversion, on 08/20 patient was taken to the cardiac research laboratory manager and 3 times attempted to cardioversion it was unsuccessful, today patient was seen by Cardiology and to control the rate added digoxin, recommended will monitor patient overnight, patient may need repeat cardioversion in about a month, patient remains clinically stable will continue to monitor. Review of Systems Review of Systems: All systems reviewed & are unremarkable except as noted in HPI and below Exam Narrative: morbidly obese Patient is comfortable, NAD HEENT: eyes are clear and none icteric LUNGS: normal respiratory effort ABD: distended Lower extremities: no edema SKIN: nonjaundiced Neuro: grossly intact. Objective Data Vital Signs Vital Signs: Vital Signs - 24 hr 08/20/22 17:47 08/20/22 18:00 08/20/22 20:00 Temperature Pulse Rate 121 H 103 H 108 H Respiratory Rate Blood Pressure Pulse Oximetry Oxygen Delivery 08/20/22 20:00 08/20/22 22:00 08/20/22 23:50 Temperature 97.5 F L Pulse Rate 108 H 121 H 108 H Respiratory Rate 14 18 Blood Pressure 90/65 L Pulse Oximetry 95 98 Oxygen Delivery Room Air 08/21/22 00:00 08/21/22 02:00 08/21/22 04:00 Temperature Pulse Rate 111 H 93 98 Respiratory Rate Blood Pressure Pulse Oximetry Oxygen Delivery 08/21/22 06:00 08/21/22 08:00 08/21/22 08:00 Temperature 97.2 F L Pulse Rate 81 107 H Respiratory Rate 16 Blood Pressure 111/83 Pulse Oximetry 98 98 Oxygen Delivery Room Air 08/21/22 08:00 08/21/22 08:47 08/21/22 08:47 Temperature Pulse Rate 129 H 117 H 122 H Respiratory Rate Blood Pressure Pulse Oximetry Oxygen Delivery 08/21/22 09:57 12
[2022-08-22] VITALS (9 sets, daily range): BP systolic 106–120; BP diastolic 62–65; PULSE 85–120; RESP 14–20; TEMP 36.2–36.8; O2SAT 97–99
[2022-08-22 04:58] LABS: Hematocrit 41.2 % (37.0-47.0); Mean Corpuscular HGB Conc 31.6 g/dl (32-36); Mean Corpuscular Hemoglobin 28.8 pg (26-34); Mean Corpuscular Volume 91.4 fl (80-100); Mean Platelet Volume 11.7 fl (7.4-10.4); Platelet Count Result 242 k/mm3 (150-375); Red Blood Count 4.51 M/mm3 (4.2-5.4); Red Cell Distribution Width 14.2 % (11.5-14.5); White Blood Count 8.7 K/mm3 (4.5-10.0)
[2022-08-22 05:08] LABS: Anion Gap 1 mmol/L (8-16); Blood Urea Nitrogen 15 mg/dL (7-17); Calcium 7.9 mg/dL (8.4-10.2); Carbon Dioxide 29 mmol/L (22-30); Chloride 105 mmol/L (98-107); Estimated CRCL calculation 56 ml/min; Estimated Glomerular Filt Rate > 60; Glucose 98 mg/dL (65-110); Sodium 135 mmol/L (137-145)
[2022-08-22] MEDS: AMIODARONE HCL 200 MG TABLET 400 MG PO (08:22)
[2022-08-22] MEDS: guaiFENesin 12 HR 600 MG TABCR PO (08:22)
[2022-08-22] MEDS: AZITHROMYCIN 250 MG TABLET 500 MG PO (08:22)
[2022-08-22] MEDS: METOPROLOL SUCCINATE EXT REL 100 MG TABCR 200 MG PO (08:22)
[2022-08-22] MEDS: APIXABAN 5 MG TABLET PO (08:22)
--- NOTE | 2022-08-22 08:30 | PM.PNCARD ---
Progress Note: A&P Assessment and Plan (1) PAF (paroxysmal atrial fibrillation): Code(s): I48.0 - Paroxysmal atrial fibrillation Status: Acute Plan 77-year-old lady with: Paroxysmal atrial fibrillation now with a persistent/symptomatic recurrence. Plan at this time is to continue oral amiodarone, metoprolol and digoxin. Heart rate control is not ideal but is acceptable. In my opinion she can be discharged will plan to follow-up with Dr. Abad in the office as an outpatient. I would take amiodarone dosage down to 400 mg daily at the time of discharge. John Aragon MD [facility] Subjective Date/time seen: Date of service: 08/22/22 08:30 Interval history: Follow-up visit in this 77-year-old woman with: Paroxysmal atrial fibrillation admitted with a symptomatic recurrence of this arrhythmia that has a is being treated during this hospitalization. Cardioversion earlier did not succeed in sustaining sinus rhythm. She is now being loaded orally with amiodarone. Heart rate control is also being provided with metoprolol and digoxin. Systemic anticoagulation in place with apixaban. She is essentially asymptomatic this morning enjoying her breakfast and has no complaints. Exam Const: General: comfortable and no acute distress Other: Pleasant obese lady no distress HENMT: Mouth: Yes moist mucous membranes Eyes: Sclera: sclerae normal Neck: Neck: supple Resp: Effort & Inspection: normal respiratory effort Auscultation: clear to auscultation bilaterally Cardio: Rate: tachycardic Rhythm: abnormal rhythm irregularly irregular GI: GI Palp: Yes Soft to palpation Auscultation: normal bowel sounds Skin: General skin exam: normal color Neuro: Other: Alert and oriented x3 Objective Data Vital Signs Vital Signs: Vital Signs - 24 hr 08/21/22 08:47 08/21/22 08:47 08/21/22 09:57 Temperature Pulse Rate 117 H 122 H 120 H Respiratory Rate Blood Pressure Pulse Oximetry Oxygen Delivery 08/21/22 10:00 08/21/22 12:00 08/21/22 16:00 Temperature 36.1 C L Pulse Rate 118 H 98 94 Respiratory Rate 20 Blood Pressure 111/68 Pulse Oximetry 98 Oxygen Delivery 08/21/22 16:00 08/21/22 17:29 08/21/22 18:00 Temperature Pulse Rate 89 104 H 100 Respiratory Rate Blood Pressure Pulse Oximetry Oxygen Delivery 08/21/22 20:00 08/21/22 20:00 08/22/22 00:16 Temperature 36.8 C Pulse Rate 113 H 105 H Respiratory Rate 20 Blood Pressure 106/65 Pulse Oximetry 97 Oxygen Delivery Room Air 08/22/22 00:00 08/22/22 04:00 08/22/22 07:33 Temperature Pulse Rate 113 H 92 Respiratory Rate Blood Pressure Pulse Oximetry 99 Oxygen Delivery Room Air 08/22/22 07:59 08/22/22 08:22 08/22/22 08:22 Temperature 36.2 C L Pulse Rate 97 120 H 120 H Respiratory Rate 14 Blood Pressure 120/62 Pulse Oximetry 98 Oxygen Delivery Intake/Output Intake/Output: Intake & Output 08/19/22 08/20/22 08/21/22 08/22/22 23:59 23:59 23:59 23:59 Intake Total 1272.5 1230 1940 350 Output Total 099 052 3865 600 Balance 322.5 330 789 -250 Meds/Results Medications: Active Medications Generic Name Dose Route Start Last Admin Trade Name Freq PRN Reason Stop Dose Admin Acetaminophen 650 mg 08/15/22 15:59 Acetaminophen 325 Mg Tablet PO Q6H PRN Mild Pain (1-3) or Fever Amiodarone HCl 400 mg 08/20/22 09:30 08/22/22 08:22 Amiodarone Hcl 200 Mg Tablet PO 400 mg BID BIBI Administration Apixaban 5 mg 08/15/22 23:05 08/22/22 08:22 Apixaban 5 Mg Tablet PO 5 mg Q12HR BIBI Administration Azithromycin 500 mg 08/18/22 09:45 08/22/22 08:22 Azithromycin 250 Mg Tablet PO 500 mg DAILY BIBI Administration Digoxin 250 mcg 08/22/22 09:00 Digoxin 250 Mcg Tablet PO QAM [facility] Guaifenesin 600 mg 08/18/22 21:00 08/22/22 08:22 Guaifenesin 12 Hr 600 Mg Tabcr PO 600 mg Q12HR [facility] Administra
[2022-08-22] MEDS: DIGOXIN 250 MCG TABLET PO (08:32)
[2022-08-22] MEDS: TOLNAFTATE 1% POWDER 45 GM BTL 1 APPLIC TOPICAL (08:33)
--- NOTE | 2022-08-22 13:31 | PCOTNOTE ---
Attempted to see pt for occupational therapy treatment. Pt reports, she will be d/c home today and does not think she needs therapy today. Pt expresses that she does not feel like therapy will fix her Afib and that her SOB has improved that she feels fine returning home. Will continue per POC duration/frequency if pt does not d/c home today.
--- NOTE | 2022-08-22 14:51 | PM.DS ---
DS: Admitting Diagnosis Discharge Date 08/22/2022 Admitting Diagnosis Shortness of breath and racing heart. DS: Discharge Diagnosis Discharge Diagnosis (1) Atrial fibrillation with rapid ventricular response: Code(s): I48.91 - Unspecified atrial fibrillation Status: Acute Assessment and Plan: 08/21/2022 interval history: patient with history of atrial fibrillation now in RVR seen by cardiology place the patient Cardizem drip however it was discontinued due to cardiomyopathy placed on and amiodarone drip, and metoprolol 50 mg every 6 hours, patient converted to sinus rhythm with medical treatment however return back to AFib seen by cardiology recommended cardioversion, on 08/20 patient was taken to the cardiac laboratory technologist and 3 times attempted to cardioversion it was unsuccessful, today patient was seen by Cardiology and to control the rate added digoxin, recommended will monitor patient overnight, patient may need repeat cardioversion in about a month, patient remains clinically stable will continue to monitor. (2) Elevated troponin: Code(s): R77.8 - Other specified abnormalities of plasma proteins Status: Acute Assessment and Plan: most likely demand ischemia due to atrial fibrillation RVR seen by cardiology no ischemic workup is recommended (3) CHF (congestive heart failure): Qualifiers: Heart failure type: diastolic Heart failure chronicity: acute Qualified Code(s): I50.31 - Acute diastolic (congestive) heart failure Code(s): I50.9 - Heart failure, unspecified Status: Acute Assessment and Plan: patient with history of cardiomyopathy with ejection fraction of 35% patient is being diuresed (4) AMY (acute kidney injury): Code(s): N17.9 - Acute kidney failure, unspecified Status: Acute Assessment and Plan: patient with acute on chronic kidney disease patient is being diuresed will monitor DS: Summary Hospital Course Reason for hospitalization: Chief Complaint: Shortness of breath and racing heart. Narrative: This is a 77-year-old female with hypertension, paroxysmal atrial fibrillation on anticoagulation, and aortic stenosis who presented to the emergency department for evaluation of shortness of breath and sensations of racing heart. Her symptoms developed over the last couple of days and she has reports sensations of racing heart, palpitations, dyspnea on exertion, and some lightheadedness with exertion, similar to those she has experienced previously with atrial fibrillation. She has 3 pillow orthopnea and mild edema in the extremities. She denies recent cold and flu symptoms, fever, chills, sweats, chest pain, pleuritic pain, nausea, and vomiting. She has been maintained on metoprolol tartrate 25 mg b.i.d. and she is on apixaban for stroke prophylaxis; she states compliance with both. She last saw her hearings reporter (Dr. Abad) in May and there are plans for a repeat echo in October to reassess her aortic stenosis. On arrival to the emergency department she was found to be in atrial fibrillation with rapid ventricular response (rate as high as 178) and she has been started on Cardizem drip with improvement in her rate. She has no significant complaints at this time. Hospital Course: ?patient with history of atrial fibrillation now in RVR seen by cardiology place the patient Cardizem drip however it was discontinued due to cardiomyopathy placed on and amiodarone drip,? and metoprolol 50 mg every 6 hours, patient converted to sinus rhythm with medical treatment however return back to AFib seen by cardiology recommended cardioversion, on 08/20? patient was taken to the cardiac laboratory technologist and 3 times attempted to cardioversion it was unsuccessful,? today patient was seen by Cardiology and to control the rate added digoxin, recommended will monitor patient overnight, patient may need repeat cardioversion in about a month,? patient remains clinically stable will con
--- NOTE | 2022-08-22 16:15 | PC.NURSE ---
Reviewed discharge paperwork with pt. All questions were answered. Peripheral IV access removed. Pt escorted out via wheelchair by staff.
[2022-08-24 20:15] LABS: ANCA Screen Negative (Negative)
[2022-08-27 12:59] LABS: Creat 24 Hr 1.11 g/24 h (0.50-2.15); Measured Kappa Chains 1.59 mg/dL (<2.00); Measured Lambda Chains <1.00 mg/dL (<2.00); Pro/Creat Ratio 227 mg/g creat (<150); Protein,total, 24 Hr Ur 252 mg/24 h (<150); Total Kappa Chains 22.26 mg/24 h
== END 2022-08-22 16:00 | disposition home health service (06) | DRG 308 ==
LOC: ANHED 11:02 → ANHIMU 14:49
PROVIDERS: Internal Medicine; Internal Medicine Nephrology; Physician Assistant; Admitting Provider Family Medicine; Emergency Provider Emergency Medicine; PCP Family Medicine; Visit Provider Physician Assistant
PROC: 5A2204Z Restoration of Cardiac Rhythm, Single (ICD-10-PCS; principal; 2022-08-20 09:00)
DX: I48.0 Paroxysmal atrial fibrillation (principal); I50.31 Acute diastolic (congestive) heart failure; N17.9 Acute kidney failure, unspecified; E87.1 Hypo-osmolality and hyponatremia; I13.0 Hypertensive heart and chronic kidney disease with heart failure and stage 1 through stage 4 chronic kidney disease, or unspecified chronic kidney disease; Z68.41 Body mass index [BMI] 40.0-44.9, adult; N18.9 Chronic kidney disease, unspecified; I42.9 Cardiomyopathy, unspecified; E66.01 Morbid (severe) obesity due to excess calories; Z20.822 Contact with and (suspected) exposure to COVID-19; Z79.01 Long term (current) use of anticoagulants; Z79.899 Other long term (current) drug therapy; Z88.0 Allergy status to penicillin; Z88.1 Allergy status to other antibiotic agents
CPT/HCPCS: 36415; 71045; 71046; 76775; 80048; 80053; 81001; 82533; 82550; 82570; 82948; 83520; 83735; 83880; 83883; 83930; 83935; 84100; 84156; 84295; 84300; 84443; 84484; 84540; 85025; 85027; 85610; 85652; 85730; 86036; 86038; 86160; 86162; 86225; 86334; 86335; 87086; 87088; 87636; 92960; 93005; 93306; 94667; 96365; 96366; 96375; 96376; 97161; 97165; 97530; 99285; A9270; G0378; J0282; J0696; J1940; J2250; J2405; J3010; J7030; J7040

== ENCOUNTER 2022-08-24 09:23 | Outpatient (CLI) | payer MEDICARE, SELFPAY ==
--- NOTE | 2022-08-24 09:25 | ECG_ITS ---
Measurements Intervals [place] Rate: 108 P: [place]: 0 QRS: 51 QRSD: 82 T: 232 QT: 334 QTc: 449 Interpretive Statements ATRIAL FIBRILLATION WITH RAPID VENTRICULAR RESPONSE ST-T WAVE ABNORMALITY IN ANTEROLATERAL LEADS- CONSIDER ISCHEMIA BASELINE ARTIFACT- II, III, AVF ABNORMAL ECG COMPARED TO ECG 08/20/2022 09:29:27 NO SIGNIFICANT CHANGES Electronically Signed On 08-24-2022 10:03:09 BULL FLOAT FINISHER by Wes Sofia D.O.
== END 2022-08-24 09:24 | disposition home or self-care (01) ==
LOC: CHSCARD 09:25
PROVIDERS: PCP Family Medicine; Visit Provider Physician Assistant
DX: I48.91 Unspecified atrial fibrillation (principal); R94.31 Abnormal electrocardiogram [ECG] [EKG]
CPT/HCPCS: 93005

== ENCOUNTER 2022-10-05 07:52 | Outpatient (CLI) | payer MEDICARE, SELFPAY ==
[2022-10-05 08:39] LABS: Anion Gap 3 mmol/L (8-16); Blood Urea Nitrogen 24 mg/dL (7-18); Calcium 8.4 mg/dL (8.5-10.1); Carbon Dioxide 33 mmol/L (21-32); Chloride 99 mmol/L (98-108); Estimated Glomerular Filt Rate 42; Glucose 131 mg/dL (70-99); Osmolality Calculated 286 mOsm/kg (285-295); Potassium 4.2 mmol/L (3.5-5.1); Sodium 135 mmol/L (136-145)
== END 2022-10-05 07:53 | disposition home or self-care (01) ==
LOC: CHSLAB 07:55
PROVIDERS: PCP Family Medicine; Visit Provider Nurse Practitioner Adult Health
DX: I42.9 Cardiomyopathy, unspecified (principal)
CPT/HCPCS: 36415; 80048

== ENCOUNTER 2022-10-19 10:46 | Outpatient (CLI) | payer MEDICARE, SELFPAY ==
--- NOTE | ~2022-10-19 | XR_ITS ---
EXAMINATION: XR bone survey comp/metastic DATE: 10/19/2022 12:13 INDICATION: Monoclonal gammopathy of undetermined significance. TECHNIQUE: 29 views of a skeletal survey were obtained. COMPARISON: None. FINDINGS: There is mild chronic height loss of multiple vertebral bodies. IMPRESSION: 1. No lytic lesion to suggest multiple myeloma. Reviewed, dictated and finalized at location A. ADVISOR
[2022-10-19 11:07] LABS: Basophils Absolute Auto 0.1 K/mm3 (0.0-0.1); Basophils Percent Auto 0.7 % (0.2-1.2); Eosinophils Absolute Auto 0.1 K/mm3 (0-0.3); Eosinophils Percent Auto 1.5 % (0-4.4); Hemoglobin 13.2 g/dL (12.0-15.0); Immature Granulocyte Absolute 0.02 K/mm3 (0.00-0.031); Immature Granulocyte Percent A 0.3 % (0-0.5); Lymphocytes Absolute Auto 1.17 K/mm3 (0.9-3.2); Mean Corpuscular HGB Conc 32.2 g/dl (32-36); Mean Corpuscular Hemoglobin 29.8 pg (26-34); Mean Corpuscular Volume 92.6 fl (80-100); Mean Platelet Volume 10.7 fl (7.4-10.4); Monocytes Absolute Auto 0.8 K/mm3 (0.1-0.6); Monocytes Percent Auto 11.2 % (2.6-8.5); Neutrophils Absolute Auto 5.1 K/mm3 (1.3-6.7); Neutrophils Percent Auto 70.3 % (45.5-73.1); Platelet Count Result 308 k/mm3 (150-375); Red Blood Count 4.43 M/mm3 (4.2-5.4); Red Cell Distribution Width 14.1 % (11.5-14.5); White Blood Count 7.3 K/mm3 (4.5-10.0)
[2022-10-19 11:37] LABS: Alanine Aminotransferase 18 U/L (6-35); Albumin Level 3.9 g/dL (3.5-5.1); Alkaline Phosphatase 123 U/L (38-126); Anion Gap 2 mmol/L (8-16); Aspartate Amino Transferase 22 U/L (14-36); Bilirubin,Total 0.5 mg/dL (0.2-1.3); Blood Urea Nitrogen 10 mg/dL (7-17); Calcium 8.6 mg/dL (8.4-10.2); Carbon Dioxide 33 mmol/L (22-30); Chloride 96 mmol/L (98-107); Estimated Glomerular Filt Rate > 60; Glucose 117 mg/dL (65-110); Potassium 4.3 mmol/L (3.4-5.0); Sodium 131 mmol/L (137-145)
[2022-10-19 16:51] LABS: Immunoglobulin A 448 mg/dL (70-400); Immunoglobulin G 642 mg/dL (700-1600); Immunoglobulin M 39 mg/dL (40-230)
[2022-10-21 15:38] LABS: Albumin 3.3 g/dL (3.8-4.8); Alpha 1 Globulin 0.4 g/dL (0.2-0.3); Beta 1 Globulin 0.4 g/dL (0.4-0.6); Gamma Globulin 0.6 g/dL (0.8-1.7); Protein, Total 6.3 g/dL (6.1-8.1)
[2022-10-21 20:34] LABS: Kappa\\Lambda Light Chains 1.25 (0.26-1.65); Lambda Light Chain 12.8 mg/L (5.7-26.3)
== END 2022-10-19 10:47 | disposition home or self-care (01) ==
LOC: ANHLAB 10:48
PROVIDERS: PCP Family Medicine; Visit Provider Internal Medicine Hematology & Oncology
DX: D47.2 Monoclonal gammopathy (principal)
CPT/HCPCS: 36415; 77075; 80053; 82784; 83883; 84155; 84165; 85025

== ENCOUNTER 2022-11-02 10:47 | Outpatient (CLI) | payer MEDICARE, SELFPAY ==
[2022-11-02 11:45] LABS: Anion Gap 4 mmol/L (8-16); Blood Urea Nitrogen 13 mg/dL (7-17); Calcium 8.9 mg/dL (8.4-10.2); Carbon Dioxide 33 mmol/L (22-30); Chloride 97 mmol/L (98-107); Estimated Glomerular Filt Rate > 60; Glucose 119 mg/dL (65-110); Potassium 4.1 mmol/L (3.4-5.0); Sodium 134 mmol/L (137-145)
== END 2022-11-02 10:48 | disposition home or self-care (01) ==
PROVIDERS: PCP Family Medicine; Visit Provider Nurse Practitioner Adult Health
DX: I48.0 Paroxysmal atrial fibrillation (principal); I35.0 Nonrheumatic aortic (valve) stenosis; I10 Essential (primary) hypertension
CPT/HCPCS: 36415; 80048

== ENCOUNTER 2022-11-16 10:06 | Outpatient (CLI) | payer MEDICARE, SELFPAY ==
[2022-11-16 11:28] LABS: Albumin Level 2.8 g/dL (3.4-5.0); Anion Gap 8 mmol/L (8-16); Blood Urea Nitrogen 11 mg/dL (7-18); Calcium 8.8 mg/dL (8.5-10.1); Carbon Dioxide 32 mmol/L (21-32); Chloride 106 mmol/L (98-108); Estimated Glomerular Filt Rate 53; Glucose 108 mg/dL (70-99); Osmolality Calculated 302 mOsm/kg (285-295); Phosphorus 3.4 mg/dL (2.6-4.7); Potassium 4.5 mmol/L (3.5-5.1); Sodium 146 mmol/L (136-145)
== END 2022-11-16 10:07 | disposition home or self-care (01) ==
LOC: CHSLAB 10:08
PROVIDERS: PCP Family Medicine; Visit Provider Internal Medicine Nephrology
DX: E87.1 Hypo-osmolality and hyponatremia (principal)
CPT/HCPCS: 36415; 80069

== ENCOUNTER 2023-02-26 10:57 | Outpatient (CLI) | payer MEDICARE, SELFPAY ==
[2023-02-26 11:12] LABS: Hematocrit 40.9 % (35.0-42.0); Hemoglobin 12.9 g/dL (11.7-13.8); Mean Corpuscular HGB Conc 31.5 g/dL (32.0-36.0); Mean Corpuscular Hemoglobin 29.8 pg (27.0-31.0); Mean Corpuscular Volume 94.5 fL (78.0-102.0); Mean Platelet Volume 10.4 fl (9.2-11.8); Platelet Count Result 296 K/mm3 (150-420); Red Blood Count 4.33 M/mm3 (4.20-5.40); Red Cell Distribution Width 13.7 % (11.6-14.4); White Blood Count 5.4 K/mm3 (4.8-10.8)
[2023-02-26 11:20] LABS: Creatinine Urine 27.65 mg/dL (40-278)
[2023-02-26 11:44] LABS: Total Protein Urine Random < 6.0 mg/dL (0.0-11.9); Ur Ttl Prot Creatinine Ratio 0.22 mg/mg (0-0.20)
[2023-02-26 11:50] LABS: Albumin Level 3.5 g/dL (3.4-5.0); Anion Gap 7 mmol/L (8-16); Blood Urea Nitrogen 26 mg/dL (7-18); Calcium 9.1 mg/dL (8.5-10.1); Carbon Dioxide 30 mmol/L (21-32); Chloride 103 mmol/L (98-108); Estimated Glomerular Filt Rate 50; Glucose 95 mg/dL (70-99); Osmolality Calculated 294 mOsm/kg (285-295); Phosphorus 4.6 mg/dL (2.6-4.7); Potassium 4.9 mmol/L (3.5-5.1); Sodium 140 mmol/L (136-145)
== END 2023-02-26 10:58 | disposition home or self-care (01) ==
LOC: CHSLAB 10:59
PROVIDERS: PCP Family Medicine; Visit Provider Internal Medicine Nephrology
DX: N17.9 Acute kidney failure, unspecified (principal); E66.3 Overweight
CPT/HCPCS: 36415; 80069; 82570; 84156; 85027

== ENCOUNTER 2023-05-21 09:01 | Outpatient (CLI) | payer MEDICARE, SELFPAY ==
[2023-05-21 09:29] LABS: Basophils Absolute Auto 0.07 K/mm3 (0.00-0.10); Basophils Percent Auto 1.4 % (0.0-1.0); Eosinophils Absolute Auto 0.17 K/mm3 (0.02-0.50); Eosinophils Percent Auto 3.3 % (1.0-6.0); Hematocrit 40.9 % (35.0-42.0); Immature Granulocyte Absolute 0.01 K/mm3 (0.00-0.00); Immature Granulocyte Percent A 0.2 % (0.0-0.0); Lymphocytes Absolute Auto 1.49 K/mm3 (1.10-4.50); Lymphocytes Percent Auto 28.9 % (18.0-42.0); Mean Corpuscular HGB Conc 31.8 g/dL (32.0-36.0); Mean Corpuscular Hemoglobin 30.2 pg (27.0-31.0); Mean Corpuscular Volume 95.1 fL (78.0-102.0); Mean Platelet Volume 10.5 fl (9.2-11.8); Monocytes Absolute Auto 0.59 K/mm3 (0.10-0.90); Monocytes Percent Auto 11.4 % (2.0-11.0); Neutrophils Absolute Auto 2.8 K/mm3 (1.7-7.2); Neutrophils Percent Auto 54.8 % (50.0-70.0); Platelet Count Result 299 K/mm3 (150-420); Red Cell Distribution Width 13.1 % (11.6-14.4); White Blood Count 5.2 K/mm3 (4.8-10.8)
[2023-05-21 09:55] LABS: Alanine Aminotransferase 31 U/L (14-59); Albumin Level 3.5 g/dL (3.4-5.0); Alkaline Phosphatase 112 U/L (46-116); Anion Gap 6 mmol/L (8-16); Aspartate Amino Transferase 19 U/L (15-37); Bilirubin,Total 0.4 mg/dL (0.00-1.00); Blood Urea Nitrogen 23 mg/dL (7-18); Calcium 9.5 mg/dL (8.5-10.1); Carbon Dioxide 30 mmol/L (21-32); Chloride 104 mmol/L (98-108); Estimated Glomerular Filt Rate 53; Glucose 98 mg/dL (70-99); Osmolality Calculated 293 mOsm/kg (285-295); Potassium 5.2 mmol/L (3.5-5.1); Sodium 140 mmol/L (136-145); Total Protein 6.8 g/dL (6.4-8.2)
[2023-05-24 14:48] LABS: Abnormal Protein Band 1 0.5 g/dL; Albumin 3.9 g/dL (3.8-4.8); Alpha 1 Globulin 0.3 g/dL (0.2-0.3); Alpha 2 Globulin 0.8 g/dL (0.5-0.9); Beta 1 Globulin 0.5 g/dL (0.4-0.6); Gamma Globulin 0.7 g/dL (0.8-1.7); Protein, Total 6.9 g/dL (6.1-8.1)
[2023-05-25 03:48] LABS: Kappa\\Lambda Light Chains 1.81 (0.26-1.65); Lambda Light Chain 12.5 mg/L (5.7-26.3)
[2023-05-26 09:25] LABS: Immunoglobulin A 610 mg/dL (70-320); Immunoglobulin G 748 mg/dL (600-1540); Immunoglobulin M 36 mg/dL (50-300)
== END 2023-05-21 09:02 | disposition home or self-care (01) ==
PROVIDERS: PCP Family Medicine; Visit Provider Internal Medicine Hematology & Oncology
DX: D47.2 Monoclonal gammopathy (principal)
CPT/HCPCS: 36415; 80053; 82784; 83883; 84155; 84165; 85025

== ENCOUNTER 2023-08-18 10:19 | Outpatient (CLI) | payer MEDICARE, SELFPAY ==
--- NOTE | ~2023-08-18 | XR_ITS ---
XR chest 2V 08/18/2023 11:18 Indication: Long-term use of medication Procedure: 2 view chest Comparison: 08/17/2022 Findings: Cardiomegaly. No focal air space disease, pulmonary edema, pleural effusion or suspected pn eumothorax. No acute osseous abnormality. There is a chronic lower thoracic superior endplate brody linda fracture. Impression: 1: No acute cardiopulmonary disease. Reviewed, dictated and finalized at location B. ARCH INTERN Impression: 1: No acute cardiopulmonary disease.
--- NOTE | 2023-08-18 12:14 | WPDPFTINT ---
PFT Procedure Performed PFT Procedure Performed Plethysmography (Lung Vol) Diffusing Cap (DLCO) Flow Vol Loop Spirometry w/o Bronchodil PFT Interpretation This is a pulmonary function test with spirometry, plethysmography and diffusing capacity. The test was performed and results interpreted in accordance with the 2019 and 2005 ATS/ERS Task Force guidelines respectively using the Global Lung Function Initiative-2012 reference equations. Patient demonstrated good effort and cooperation. Reproducibility criteria were met. The quality of the spirometry maneuver was Grade A. Findings: Spirometry: There is decreased maximal expiratory airflow at low lung volumes with a concave expiratory flow tracing. The contour the inspiratory flow tracing is normal. The FVC is 1.85 L, 78% predicted. The FEV1 is 1.27 L, 70% predicted. The FEV1: FVC ratio 69%. Plethysmography: The total lung capacity is 4.82 L, 105% predicted. The functional residual capacity is 3.03 L, 115% predicted. The residual volume is 2.79 L, 136% predicted. Diffusing capacity: The diffusing capacity unadjusted for hemoglobin and carboxyhemoglobin is 15.5, 84% predicted. The diffusing capacity adjusted for alveolar volume is 4.49, 104% predicted. Impression: The spirometry is normal without evidence of an obstructive abnormality. The lung volumes are normal. The FEV1 is mildly decreased without an obstructive or restrictive abnormality. This is an abnormal but nonspecific finding. The diffusing capacity is normal. There are no prior studies for comparison
== END 2023-08-18 10:20 | disposition home or self-care (01) ==
PROVIDERS: PCP Family Medicine; Referring Provider Internal Medicine Hematology & Oncology; Visit Provider Internal Medicine Cardiovascular Disease
DX: Z79.899 Other long term (current) drug therapy (principal)
CPT/HCPCS: 71046; 94375; 94726; 94729

== ENCOUNTER 2023-08-31 07:55 | Outpatient (CLI) | payer MEDICARE, SELFPAY ==
[2023-08-31 08:14] LABS: Hemoglobin 13.1 g/dL (11.7-13.8); Mean Corpuscular Volume 93.8 fL (78.0-102.0); Mean Platelet Volume 10.1 fl (9.2-11.8); Platelet Count Result 277 K/mm3 (150-420); Red Blood Count 4.37 M/mm3 (4.20-5.40); Red Cell Distribution Width 12.9 % (11.6-14.4)
[2023-08-31 08:31] LABS: Creatinine Urine 90.68 mg/dL (40-278); Total Protein Urine Random 13.8 mg/dL (0.0-11.9); Ur Ttl Prot Creatinine Ratio 0.15 mg/mg (0-0.20)
[2023-08-31 09:18] LABS: Albumin Level 3.4 g/dL (3.4-5.0); Anion Gap 8 mmol/L (8-16); Blood Urea Nitrogen 32 mg/dL (7-18); Calcium 9.1 mg/dL (8.5-10.1); Carbon Dioxide 29 mmol/L (21-32); Chloride 104 mmol/L (98-108); Estimated Glomerular Filt Rate 43; Glucose 99 mg/dL (70-99); Osmolality Calculated 298 mOsm/kg (285-295); Phosphorus 3.8 mg/dL (2.6-4.7); Potassium 4.7 mmol/L (3.5-5.1); Sodium 141 mmol/L (136-145)
[2023-09-02 20:42] LABS: Parathyroid Intact 59 pg/mL (14-64)
== END 2023-08-31 07:56 | disposition home or self-care (01) ==
LOC: CHSLAB 07:57
PROVIDERS: PCP Family Medicine; Visit Provider Internal Medicine Nephrology
DX: N18.31 Chronic kidney disease, stage 3a (principal); E66.3 Overweight; E87.1 Hypo-osmolality and hyponatremia
CPT/HCPCS: 36415; 80069; 82570; 83970; 84156; 85027

== ENCOUNTER 2023-11-18 11:30 | Outpatient (CLI) | payer MEDICARE, SELFPAY ==
[2023-11-18 12:37] LABS: Alanine Aminotransferase 22 U/L (14-59); Albumin Level 3.4 g/dL (3.4-5.0); Alkaline Phosphatase 111 U/L (46-116); Anion Gap 9 mmol/L (4-12); Aspartate Amino Transferase 16 U/L (15-37); Bilirubin,Total 0.4 mg/dL (0.00-1.00); Blood Urea Nitrogen 26 mg/dL (7-18); Carbon Dioxide 29 mmol/L (21-32); Chloride 104 mmol/L (98-108); Estimated Glomerular Filt Rate > 60; Glucose 96 mg/dL (70-99); Osmolality Calculated 298 mOsm/kg (285-295); Potassium 4.6 mmol/L (3.5-5.1); Sodium 142 mmol/L (136-145); Total Protein 6.8 g/dL (6.4-8.2)
[2023-11-18 12:49] LABS: Basophils Absolute Auto 0.05 K/mm3 (0.00-0.10); Eosinophils Absolute Auto 0.11 K/mm3 (0.02-0.50); Eosinophils Percent Auto 2.2 % (1.0-6.0); Hematocrit 41.8 % (35.0-42.0); Hemoglobin 13.1 g/dL (11.7-13.8); Immature Granulocyte Absolute 0.02 K/mm3 (0.00-0.00); Immature Granulocyte Percent A 0.4 % (0.0-0.0); Lymphocytes Absolute Auto 1.29 K/mm3 (1.10-4.50); Lymphocytes Percent Auto 25.9 % (18.0-42.0); Mean Corpuscular HGB Conc 31.3 g/dL (32-36); Mean Corpuscular Hemoglobin 28.9 pg (27.0-31.0); Mean Corpuscular Volume 92.1 fL (78.0-102.0); Mean Platelet Volume 11.3 fl (9.2-11.8); Neutrophils Absolute Auto 3.02 K/mm3 (1.70-7.20); Neutrophils Percent Auto 60.5 % (50.0-70.0); Platelet Count Result 289 K/mm3 (150-420); Red Blood Count 4.54 M/mm3 (4.20-5.40); Red Cell Distribution Width 13.7 % (11.6-14.4)
[2023-11-20 20:42] LABS: Kappa\\Lambda Light Chains 1.58 (0.26-1.65); Lambda Light Chain 11.7 mg/L (5.7-26.3)
[2023-11-22 02:05] LABS: Abnormal Protein Band 1 0.6 g/dL; Albumin 3.7 g/dL (3.8-4.8); Alpha 1 Globulin 0.3 g/dL (0.2-0.3); Alpha 2 Globulin 0.9 g/dL (0.5-0.9); Beta 1 Globulin 0.5 g/dL (0.4-0.6); Gamma Globulin 0.7 g/dL (0.8-1.7); Protein, Total 6.9 g/dL (6.1-8.1)
[2023-11-22 03:32] LABS: Immunoglobulin A 664 mg/dL (70-320); Immunoglobulin G 723 mg/dL (600-1540); Immunoglobulin M 40 mg/dL (50-300)
== END 2023-11-18 11:31 | disposition home or self-care (01) ==
LOC: CHSLAB 11:32
PROVIDERS: PCP Family Medicine; Visit Provider Family Medicine
DX: D47.2 Monoclonal gammopathy (principal)
CPT/HCPCS: 36415; 80053; 82784; 83883; 84155; 84165; 85025

== ENCOUNTER 2023-12-01 09:36 | Outpatient (CLI) | payer MEDICARE, SELFPAY ==
[2023-12-01 10:16] LABS: Hematocrit 42.7 % (37.0-47.0); Hemoglobin 13.4 g/dL (12.0-15.0); Mean Corpuscular HGB Conc 31.4 g/dl (32-36); Mean Corpuscular Hemoglobin 29.5 pg (26-34); Mean Corpuscular Volume 94.1 fl (80-100); Mean Platelet Volume 11.3 fl (7.4-10.4); Platelet Count Result 282 k/mm3 (150-375); Red Blood Count 4.54 M/mm3 (4.2-5.4); Red Cell Distribution Width 13.9 % (11.5-14.5); White Blood Count 5.1 K/mm3 (4.5-10.0)
[2023-12-01 10:30] LABS: Albumin Level 4.2 g/dL (3.5-5.1); Anion Gap 4 mmol/L (4-12); Blood Urea Nitrogen 31 mg/dL (7-17); Calcium 9.3 mg/dL (8.4-10.2); Carbon Dioxide 29 mmol/L (22-30); Chloride 106 mmol/L (98-107); Estimated Glomerular Filt Rate 54; Glucose 104 mg/dL (65-110); Phosphorus 3.7 mg/dL (2.5-4.5); Potassium 4.6 mmol/L (3.4-5.0); Sodium 139 mmol/L (137-145)
[2023-12-01 10:42] LABS: Parathyroid Intact 48.8 pg/mL (7.5-53.5)
[2023-12-01 10:43] LABS: Creatinine Urine 56.5 mg/dL
[2023-12-01 11:09] LABS: Total Protein Urine Random < 5 mg/dL; Ur Ttl Prot Creatinine Ratio < 0.09 mg/mg (0-0.20)
== END 2023-12-01 09:37 | disposition home or self-care (01) ==
LOC: ANHLAB 09:39
PROVIDERS: PCP Family Medicine; Visit Provider Internal Medicine Nephrology
DX: N18.31 Chronic kidney disease, stage 3a (principal); D89.2 Hypergammaglobulinemia, unspecified; E66.3 Overweight
CPT/HCPCS: 36415; 80069; 82570; 83970; 84156; 85027

== ENCOUNTER 2024-01-27 13:00 | Outpatient (CLI) | payer MEDICARE, SELFPAY ==
--- NOTE | 2024-01-27 13:08 | ECHO_ITS ---
Patient Info Name: Aleta Kenny Age: 78 years : 1945 Gender: Female Ht: 61 in Wt: 210 lbs BSA: 2.08 m2 HR: 61 bpm BP: 123 / 78 mmHg Technical Quality: Fair Exam Date: 01/27/2024 1:05 PM Exam Location: Echo Lab Patient Status: Outpatient Admit Date: 01/27/2024 Staff Ordering Physician: Elio Abad MD Director Hr Communications: Mau Esposito RDCS Attending Provider: Elio Abad MD Referring Physician: Jenniffer AIKEN; Exam Type: CA echo doppler color flow Study Info Indications I35.0 - Nonrheumatic aortic (valve) stenosis Complete two-dimensional, color flow and Doppler transthoracic echocardiogram is performed. Summary 1. Complete two-dimensional, color flow and Doppler transthoracic echocardiogram is performed. 2. Left ventricular chamber dimension is normal. 3. Left ventricular systolic function is normal, estimated at 55-60%. 4. There is mild concentric increased left ventricular wall thickness. 5. The left ventricular diastolic function is grade I diastolic dysfunction. 6. E/e' 10 is mildly elevated. 7. Left atrial chamber dimension is moderately enlarged. 8. The aortic valve is not well visualized. Cannot determine number of aortic valve leaflets. 9. There is severe aortic valve stenosis based on a peak velocity of 346 cm/s, mean gradient of 27 mmHg, and aortic valve area of 0.8 cm2. 10. There is severe aortic valve sclerosis. 11. There is trace tricuspid valve regurgitation. 12. No pulmonary hypertension, estimated pulmonary arterial systolic pressure is 24 mmHg. Left Ventricle E/e' 10 is mildly elevated. Left ventricular chamber dimension is normal. Left ventricular systolic function is normal, estimated at 55-60%. There is mild concentric increased left ventricular wall thickness. The left ventricular diastolic function is grade I diastolic dysfunction. Right Ventricle Right ventricular systolic function is normal and with normal TAPSE 2.3 cm. Right ventricular chamber dimension is normal. Left Atria Left atrial chamber dimension is moderately enlarged. Right Atria Right atrial chamber dimension is normal. Aortic Valve The aortic valve is not well visualized. Cannot determine number of aortic valve leaflets. There is severe aortic valve stenosis based on a peak velocity of 346 cm/s, mean gradient of 27 mmHg, and aortic valve area of 0.8 cm2. There is severe aortic valve sclerosis. There is no aortic valve regurgitation. Pulmonic Valve There is no pulmonic regurgitation. Mitral Valve There is no mitral valve stenosis. There is no mitral valve regurgitation. Tricuspid Valve There is trace tricuspid valve regurgitation. No pulmonary hypertension, estimated pulmonary arterial systolic pressure is 24 mmHg. Pericardium/Pleural There is no pericardial effusion. Inferior Vena Cava Normal inferior vena cava with >50% collapse upon inspiration consistent with normal right atrial pressure, 5 mmHg. Aorta The aortic root size at the sinus of Valsalva is normal. Left Ventricular Outflow Tract Name Value Normal LVOT 2D LVOT Diameter 2.0 cm LVOT Doppler LVOT Peak Velocity 96 cm/s LVOT Peak Gradient 4 mmHg LVOT Mean Gradien
== END 2024-01-27 13:01 | disposition home or self-care (01) ==
LOC: CHSIMG 13:00
PROVIDERS: PCP Family Medicine; Visit Provider Internal Medicine Cardiovascular Disease
DX: I35.0 Nonrheumatic aortic (valve) stenosis (principal)
CPT/HCPCS: 93306

== ENCOUNTER 2024-04-12 09:07 | Outpatient (CLI) | payer MEDICARE, SELFPAY ==
[2024-04-12 09:41] LABS: Basophils Absolute Auto 0.07 K/mm3 (0.00-0.10); Basophils Percent Auto 1.2 % (0.0-1.0); Eosinophils Percent Auto 3.4 % (1.0-6.0); Hematocrit 39.4 % (35.0-42.0); Hemoglobin 12.5 g/dL (11.7-13.8); Immature Granulocyte Absolute 0.01 K/mm3 (0.00-0.00); Immature Granulocyte Percent A 0.2 % (0.0-0.0); Lymphocytes Percent Auto 23.9 % (18.0-42.0); Mean Corpuscular HGB Conc 31.7 g/dL (32-36); Mean Corpuscular Hemoglobin 29.9 pg (27.0-31.0); Mean Corpuscular Volume 94.3 fL (78.0-102.0); Monocytes Absolute Auto 0.67 K/mm3 (0.10-0.90); Monocytes Percent Auto 11.5 % (2.0-11.0); Neutrophils Percent Auto 59.8 % (50.0-70.0); Platelet Count Result 275 K/mm3 (150-420); Red Blood Count 4.18 M/mm3 (4.20-5.40); Red Cell Distribution Width 13.3 % (11.6-14.4); White Blood Count 5.9 K/mm3 (4.8-10.8)
[2024-04-12 10:33] LABS: Alanine Aminotransferase 23 U/L (14-59); Albumin Level 3.3 g/dL (3.4-5.0); Alkaline Phosphatase 125 U/L (46-116); Anion Gap 6 mmol/L (4-12); Aspartate Amino Transferase 17 U/L (15-37); Bilirubin,Total 0.4 mg/dL (0.00-1.00); Blood Urea Nitrogen 23 mg/dL (7-18); Calcium 8.8 mg/dL (8.5-10.1); Carbon Dioxide 30 mmol/L (21-32); Chloride 104 mmol/L (98-108); Estimated Glomerular Filt Rate 57; Glucose 104 mg/dL (70-99); Osmolality Calculated 293 mOsm/kg (285-295); Potassium 4.6 mmol/L (3.5-5.1); Sodium 140 mmol/L (136-145); Total Protein 6.6 g/dL (6.4-8.2)
== END 2024-04-12 09:08 | disposition home or self-care (01) ==
LOC: CHSLAB 09:09
PROVIDERS: PCP Family Medicine; Visit Provider Internal Medicine Cardiovascular Disease
DX: Z01.812 Encounter for preprocedural laboratory examination (principal); I35.0 Nonrheumatic aortic (valve) stenosis
CPT/HCPCS: 36415; 80053; 85025

== ENCOUNTER 2024-05-22 11:29 | Outpatient (CLI) | payer MEDICARE, SELFPAY ==
[2024-05-22 11:51] LABS: Basophils Absolute Auto 0.07 K/mm3 (0.00-0.10); Basophils Percent Auto 1.1 % (0.0-1.0); Eosinophils Absolute Auto 0.11 K/mm3 (0.02-0.50); Eosinophils Percent Auto 1.7 % (1.0-6.0); Hematocrit 41.9 % (35.0-42.0); Hemoglobin 13.6 g/dL (11.7-13.8); Immature Granulocyte Absolute 0.02 K/mm3 (0.00-0.00); Immature Granulocyte Percent A 0.3 % (0.0-0.0); Lymphocytes Absolute Auto 1.53 K/mm3 (1.10-4.50); Lymphocytes Percent Auto 23.1 % (18.0-42.0); Mean Corpuscular HGB Conc 32.5 g/dL (32-36); Mean Corpuscular Hemoglobin 29.9 pg (27.0-31.0); Mean Corpuscular Volume 92.1 fL (78.0-102.0); Mean Platelet Volume 10.6 fl (9.2-11.8); Monocytes Absolute Auto 0.67 K/mm3 (0.10-0.90); Monocytes Percent Auto 10.1 % (2.0-11.0); Neutrophils Absolute Auto 4.23 K/mm3 (1.70-7.20); Neutrophils Percent Auto 63.7 % (50.0-70.0); Platelet Count Result 338 K/mm3 (150-420); Red Blood Count 4.55 M/mm3 (4.20-5.40); Red Cell Distribution Width 13.5 % (11.6-14.4); White Blood Count 6.6 K/mm3 (4.8-10.8)
[2024-05-22 12:23] LABS: Alanine Aminotransferase 23 U/L (14-59); Albumin Level 3.6 g/dL (3.4-5.0); Alkaline Phosphatase 121 U/L (46-116); Anion Gap 9 mmol/L (4-12); Aspartate Amino Transferase 17 U/L (15-37); Bilirubin,Total 0.5 mg/dL (0.00-1.00); Blood Urea Nitrogen 38 mg/dL (7-18); Calcium 9.5 mg/dL (8.5-10.1); Carbon Dioxide 28 mmol/L (21-32); Chloride 100 mmol/L (98-108); Estimated Glomerular Filt Rate 33; Glucose 127 mg/dL (70-99); Osmolality Calculated 295 mOsm/kg (285-295); Phosphorus 4.5 mg/dL (2.6-4.7); Potassium 4.6 mmol/L (3.5-5.1); Sodium 137 mmol/L (136-145); Total Protein 7.3 g/dL (6.4-8.2)
[2024-05-22 14:19] LABS: Creatinine Urine 37.14 mg/dL (40-278); Total Protein Urine Random < 6.0 mg/dL (0.0-11.9); Ur Ttl Prot Creatinine Ratio 0.16 mg/mg (0-0.20)
[2024-05-23 14:38] LABS: Parathyroid Intact 79 pg/mL (16-77)
[2024-05-24 11:38] LABS: Kappa\\Lambda Light Chains 2.01 (0.26-1.65); Lambda Light Chain 12.5 mg/L (5.7-26.3)
[2024-05-25 01:49] LABS: Immunoglobulin A 728 mg/dL (70-320); Immunoglobulin G 814 mg/dL (600-1540); Immunoglobulin M 38 mg/dL (50-300)
[2024-05-31 12:03] LABS: Abnormal Protein Band 1 0.5 g/dL (NONE DETECTED); Abnormal Protein Band 2 0.2 g/dL (NONE DETECTED); Albumin 3.7 g/dL (3.8-4.8); Alpha 1 Globulin 0.3 g/dL (0.2-0.3); Beta 1 Globulin 0.6 g/dL (0.4-0.6); Gamma Globulin 0.7 g/dL (0.8-1.7)
== END 2024-05-22 11:30 | disposition home or self-care (01) ==
PROVIDERS: PCP Family Medicine; Visit Provider Internal Medicine Nephrology
DX: N18.31 Chronic kidney disease, stage 3a (principal); D47.2 Monoclonal gammopathy
CPT/HCPCS: 36415; 80053; 82570; 82784; 83883; 83970; 84100; 84155; 84156; 84165; 85025

== ENCOUNTER 2024-06-23 10:15 | Outpatient (CLI) | payer MEDICARE, SELFPAY ==
[2024-06-23 11:40] LABS: Anion Gap 9 mmol/L (4-12); Blood Urea Nitrogen 36 mg/dL (7-18); Calcium 8.7 mg/dL (8.5-10.1); Carbon Dioxide 29 mmol/L (21-32); Chloride 103 mmol/L (98-108); Estimated Glomerular Filt Rate 34; Glucose 97 mg/dL (70-99); Osmolality Calculated 300 mOsm/kg (285-295); Potassium 5.2 mmol/L (3.5-5.1); Sodium 141 mmol/L (136-145)
== END 2024-06-23 10:16 | disposition home or self-care (01) ==
LOC: CHSLAB 10:17
PROVIDERS: PCP Family Medicine; Visit Provider Nurse Practitioner Adult Health
DX: N18.9 Chronic kidney disease, unspecified (principal)
CPT/HCPCS: 36415; 80048

== ENCOUNTER 2024-07-17 11:05 | Outpatient (CLI) | payer MEDICARE, SELFPAY ==
[2024-07-17 12:14] LABS: Anion Gap 8 mmol/L (4-12); Blood Urea Nitrogen 22 mg/dL (7-18); Calcium 9.2 mg/dL (8.5-10.1); Carbon Dioxide 27 mmol/L (21-32); Chloride 104 mmol/L (98-108); Estimated Glomerular Filt Rate 44; Glucose 98 mg/dL (70-99); Osmolality Calculated 291 mOsm/kg (285-295); Sodium 139 mmol/L (136-145)
== END 2024-07-17 11:06 | disposition home or self-care (01) ==
LOC: CHSLAB 11:06
PROVIDERS: PCP Family Medicine; Visit Provider Nurse Practitioner Adult Health
DX: I10 Essential (primary) hypertension (principal)
CPT/HCPCS: 36415; 80048

== ENCOUNTER 2024-12-01 11:55 | Outpatient (CLI) | payer MEDICARE, SELFPAY ==
--- OUTSIDE RECORDS SUMMARY | 2024-12-01 12:02 | XMS_ITS | Clinical Summary ---
Author Organization [facility] Address [facility] [place] [address] Care Team Providers Care Systems Qa Analyst Name Role Phone Kingsley Augustin DO Primary Care Provider [phone] Allergies Active Allergy Reactions Criticality Noted Date Comments Metronidazole Dizziness 06/29/2023 Penicillins Shortness of Breath High 06/29/2023 Medications apixaban (ELIQUIS) 5 MG tablet Take 1 tablet (5 mg total) by mouth 2 (two) times daily. Active metoprolol succinate ER (TOPROL-XL) 100 MG 24 hr tablet Take 1 tablet (100 mg total) by mouth daily. Active losartan (COZAAR) 50 MG tablet Take 2 tablets (100 mg total) by mouth daily. Active amiodarone (PACERONE) 200 MG tablet Take 1 tablet (200 mg total) by mouth daily. Active Active Problems No known active problems Social History Tobacco Use Types Packs/Day Years Used Date Smoking Tobacco: Never Smokeless Tobacco: Never Tobacco Cessation:Counseling Given: Not Answered Alcohol Use Standard Drinks/Week Comments Never 0 (1 standard drink = 0.6 oz pur e alcohol) Comments No Sex and Gender Information Value Date Recorded Sex Assigned at Not on file Legal Sex Female 9:23 AM WELDER FIRST CLASS Gender Identity Not on file Sexual Orientation Not on file Last Filed Vital Signs Vital Sign Reading Time Taken Comments Blood Pressure 159/74 10/13/2023 10:45 AM WELDER FIRST CLASS Pulse 61 10/13/2023 10:45 AM WELDER FIRST CLASS Temperature 36.1 C (97 F) 10/13/2023 10:45 AM WELDER FIRST CLASS Respiratory Rate 18 10/13/2023 10:45 AM WELDER FIRST CLASS Oxygen Saturation 98% 10/13/2023 10:45 AM WELDER FIRST CLASS Inhaled Oxygen Concentration - - Weight 93.4 kg (206 lb) 10/06/2023 11:23 AM WELDER FIRST CLASS Height 154.9 cm (5' 1 ) 10/06/2023 11:23 AM WELDER FIRST CLASS Body Mass Index 38.92 10/06/2023 11:23 AM WELDER FIRST CLASS Plan of Treatment Health Maintenance Due Date Last Done Comments Hepatitis C 1964 DTaP, Tdap and Td Vaccines (1 - Tdap) 1965 Zoster Vaccines (1 of 2) 1996 Annual Medicare Wellness Visit 2011 Dexa Scan (General) 2011 Pneumococcal Vaccine: 65+ Years (1 of 1 - PCV) 2011 COVID-19 Vaccine ( season) 2024 06/12/2023, 05/11/2022, 01/12/2022, Additional history exists RSV Immunization or 60+ Years Completed 06/16/2023 Meningococcal B Vaccine Aged Out No l onger eligible based on patient's age to complete this topic Meningococcal Vaccine Aged Out No terri odette eligible based on patient's age to complete this topic RSV Immunizations Under 20 Months Aged Out No longer eligible based on patient's age to complete this topic Medical Devices Implanted Type Area Paperhanger Contractor Device Identifier Shelf Expiration Date Model / Serial / Lot Tecnis Implanted:Qty: 1 on 07/07/2023 by Mylene Mckeon MD at [facility] Right: Eye [employer] [id number] 11/29/2025 [id number] / [id number] / [id number] Nathalie Rudd Implanted:Qty: 1 on 10/13/2023 by Mylene Mckeon MD at [facility] Left: Eye [id number] 12/12/2025 [id number] / [id number] / [id number] Insurance MEDICARE [facility] Care Teams Systems Qa Analyst Relationship Specialty Start Date End Date Kingsley Augustin DO [address] [place] [address] PCP - General FAMILY PRACTICE 07/05/23
--- OUTSIDE RECORDS SUMMARY | 2024-12-01 12:02 | XMS_ITS | Clinical Summary ---
Author Organization [facility] Kaila [facility]ible[facility] Address [address] [place] [address] Care Team Providers Care Parole Hearing Officer Name Role Phone Kingsley Augustin DO Primary Care Provider [phone] Allergies Active Allergy Reactions Criticality Noted Date Comments Metronidazole Dizziness Low 10/19/2022 Penicillins Shortness of Breath/Wheezing High 2022 Poison Muna Extract Rash Low 10/19/2022 Medications amiodarone (CORDARONE) 200 mg tablet Take 100 mg by mouth daily. 09/15/2022 Active metoprolol succinate (TOPROL XL) 100 mg Extended Release 24 hour tablet Take 100 mg by mouth daily. 09/15/2022 Active apixaban (Eliquis) 5 mg tablet Take 1 Tablet by mouth every 12 hours. 06/08/2022 Active Jardiance 10 mg tablet Take 10 mg by mouth daily. Active furosemide (LASIX) 20 mg tablet Take 20 mg by mouth daily. 04/13/2024 Active spironolactone (ALDACTONE) 25 mg tablet Take 25 mg by mouth daily. 04/13/2024 Active vitamin E 1,000 unit Capsule Take 1,000 Units by mouth daily. Active losartan (COZAAR) 100 mg tablet Take 100 mg by mouth daily. 12/20/2023 Active Active Problems No known active problems Encounters Date Type Department Care Team Description 10/10/2024 External Device Data STL ABSTRACTION Provider, Abstract 09/14/2024 External Device Data STL ABSTRACTION Provider, Abstract 09/13/2024 External Device Data STL ABSTRACTION Provider, Abstract 09/12/2024 External Device Data STL ABSTRACTION Provider, Abstract from Last 3 Months Family History Medical History Relation Name Comments No Known Problems Daughter No Known Problems Father No Known Problems Mother No Known Problems Son 1 No Known Problems Son 2 Relation Name Status Comments Daughter Alive Father Mother Son 1 Alive Son 2 Alive Social History Tobacco Use Types Packs/Day Years Used Date Smoking Tobacco: Never Smokeless Tobacco: Never Tobacco Cessation:Counseling Given: Not Answered Alcohol Use Standard Drinks/Week Comments Never 0 (1 standard drink = 0.6 oz pur e alcohol) Comments Unknown Sex and Gender Information Value Date Recorded Sex Assigned at Not on file Legal Sex Female 2:37 PM VENEER PATCHER Gender Identity Not on file Sexual Orientation Not on file Last Filed Vital Signs Vital Sign Reading Time Taken Comments Blood Pressure 148/64 06/07/2024 10:00 AM CDT patient has known BP follows screen printing stencil preparer Pulse 64 06/07/2024 10:00 AM CDT Temperature 36.7 C (98 F) 06/07/2024 10:00 AM CDT Respiratory Rate 20 06/07/2024 10:0 0 AM CDT Oxygen Saturation 94% 06/07/2024 10: 00 AM CDT Inhaled Oxygen Concentration - - Weight 103 kg (227 lb) 06/07/2024 10:00 AM CDT Height 155.4 cm (5' 1.2 ) 10/19/2022 9: 37 AM VENEER PATCHER Body Mass Index 42.61 10/19/2022 9:37 AM VENEER PATCHER Plan of Treatment Upcoming Encounters Date Type Department Care Team (Late st Contact Info) Description 03/07/2025 10:15 AM CDT Office Visit [facility] - [place] [address] [facility] [address] [place] [address] Ervin Huerta MD [address] [facility] [address] [place] [address] Health Maintenance Due Date Last Done Comments DTAP/TDAP/TD VACCINES (1 - Tdap) 1965 PNEUMOCOCCAL VACCINE 50+ YEARS (1 of 2 - PCV) 07/26/19 65 ZOSTER VACCINE (1 of 2) 1996 OSTEOPOROSIS SCREENING 2011 RSV VACCINE (60+ or ) (1 - 1-dose 75+ series) 2021 INFLUENZA VACCINE (#1) 2024 Insurance MEDICARE PART A AND B [facility] [id number] Care Teams Parole Hearing Officer Relationship Specialty Start Date End Date Kingsley Augustin DO [address] [place] [address] PCP - General Family Practice 10/19/22
--- OUTSIDE RECORDS SUMMARY | 2024-12-01 12:02 | XMS_ITS | Referral Summary ---
Author Organization [facility] [address] [place] [address] [address] [facility] [address] [place] [address] Care Team Providers Care Engine Research Engineer Name Role Phone Kingsley Augustin DO Primary Care Provider Encounters Date Type Department Care Team Description 11/08/2024 10:00 AM CDT Office Visit [facility] Medical [facility] Cardiology [address] [place] [address] [address] [place] [address] Des Cain MD Nonrheumatic aortic valve stenosis (Primary Dx); Chronic diastolic congestive heart failure (HCC); Paroxysmal atrial fibrillation (HCC); Chronic anticoagulation; Morbid obesity with BMI of 40.0-44.9, adult (HCC) 10/05/2024 Telephone [facility] Medical Group Cardiology [address] [place] [address] [address] [place] [address] Elio Abad MD Med Refill from Last 3 Months Allergies Active Allergy Reactions Criticality Noted Date Comments Metronidazole Syncope,Dizziness High 07/01/2020 Penicillins Shortness of breath High 07/01/2020 Poison Muna Extract Swelling,Rash Medium 07/08/2020 Medications losartan (COZAAR) 100 mg tablet Take 1 tablet (100 mg total) by mouth daily 4 Active amiodarone (PACERONE) 200 mg tablet Take 1 tablet (200 mg total) by mouth daily 90 tablet 3 4 Active vitamin E 1,000 unit capsule Take 1 capsule (1,000 Units total) by mouth daily Active empagliflozin (JARDIANCE) 10 mg tablet Take 1 tablet (10 mg total) by mouth daily 30 tablet Active furosemide (LASIX) 20 mg tablet Take 1 tablet (20 mg total) by mouth daily 30 tablet 04/13/20 Active Additional Information Patient taking differently:20 mg oralEvery other day, Reported on 11/08/2024 spironolactone (ALDACTONE) 25 mg tablet Take 1 tablet (25 mg total) by mouth daily 30 tablet 04/13/20 Active Additional Information Patient taking differently: 12.5 mgoral Daily, Reported on 11/08/2024 Eliquis 5 mg tabletIndication s:Paroxysmal atrial fibrillation (HCC) TAKE 1 TABLET BY MOUTH EVERY 12 HOURS 180 tablet Active metoprolol XL (TOPROL-XL) 100 mg 24 hr tablet Take 1 tablet (100 mg total) by mouth every morning 90 tablet 1 5 Active Active Problems Problem Noted Date Diagnosed Date [facility] current use of amiodarone 07/30/2023 Paroxysmal atrial fibrillation 09/16/2020 Chronic anticoagulation 09/16/2020 Nonrheumatic aortic valve stenosis 09/16/2020 Essential hypertension 09/16/2020 False positive cardiac stress test 07/15/2020 Social History Tobacco Use Types Packs/Day Years Used Date Smoking Tobacco: Never Smokeless Tobacco: Never Tobacco Cessation:Counseling Given: Not Answered Personal Safety Answer Date Recorded Have you ever been in or are you currently in a harmful physical or emotional relationship or is someone making you feel afraid or unsafe? Denies 04/13/2024 Comments Unknown Sex and Gender Information Value Date Recorded Sex Assigned at Not on file Legal Sex Female 3:29 PM SUPERVISOR COATING Gender Identity Not on file Sexual Orientation Not on file Last Filed Vital Signs Vital Sign Reading Time Taken Comments Blood Pressure 130/60 11/08/2024 10:05 AM CDT Pulse 70 11/08/2024 10:05 AM CDT Temperature 36.3 C (97.3 F) 04/13/2024 5:00 PM CDT Respiratory Rate 16 04/13/2024 5:25 PM CDT Oxygen Saturation 97% 11/08/2024 10:05 AM CDT Inhaled Oxygen Concentration - - Weight 101.2 kg (223 lb) 11/08/2024 10:05 AM CDT Height 154.9 cm (5' 1 ) 11/08/2024 10:05 AM CDT Body Mass Index 42.14 11/08/2024 10:05 AM CDT Plan of Treatment Not on file Procedures Procedure Name Priority Date/Time Associated Diagnosis Comments ELECTROCARDIOGRAM REPORT Routine 11/08/2024 Nonrheumatic aortic valve stenosis from Last 3 Months Results * Electrocardiogram Report (11/08/2024) 11/08/2024 Des Cain MD ECG ORDERABLES Final Result from Last 3 Months Insurance MEDICARE [facility] MEDICARE [facility] Address: [address] [address] [place] [address] [facility] Care Teams Engine Research Engineer Relationship Specialty Start Date End Date Kingsley Augustin DO [address] [place] [address] PCP - General Family Medicine 07/08/20
--- OUTSIDE RECORDS SUMMARY | 2024-12-01 12:02 | XMS_ITS | Clinical Summary ---
Author Organization [facility] [address] Address [address] [place] [address] Care Team Providers Care Gas Station Supervisor Name Role Phone Kingsley Augustin Primary Care Provider Allergies Active Allergy Reactions Criticality Noted Date [...] mg total) by mouth daily 30 tablet 4 Active furosemide (LASIX) 20 mg tablet Take 1 tablet (20 mg total) by mouth daily 30 tablet 4 04/13/20 25 Active Additional Information Patient taking differently:20 mg oralEvery other day, Reported on 11/08/2024 spironolactone (ALDACTONE) 25 mg tablet Take 1 tablet (25 mg total) by mouth daily 30 tablet 4 04/13/20 25 Active Additional Information Patient taking differently: 12.5 mgoral Daily, Reported on 11/08/2024 Eliquis 5 mg tabletIndication s:Paroxysmal atrial fibrillation (HCC) TAKE 1 TABLET BY MOUTH EVERY 12 HOURS 180 tablet 1 5 Active metoprolol XL (TOPROL-XL) 100 mg 24 hr tablet Take 1 tablet (100 mg total) by mouth every morning 90 tablet 1 5 Active Active Problems Problem Noted Date Diagnosed Date 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 07/30/2023 Paroxysmal atrial fibrillation 09/16/2020 Chronic anticoagulation 09/16/2020 Nonrheumatic aortic valve stenosis 09/16/2020 Essential hypertension 09/16/2020 False positive cardiac stress test 07/15/2020 Encounters Date Type Department Care Team Description 11/08/2024 10:00 AM CDT Office Visit [facility] Cardiology [address] [place] [address] Des Cain MD Nonrheumatic aortic valve stenosis (Primary Dx); Chronic diastolic congestive heart failure (HCC); Paroxysmal atrial fibrillation (HCC); Chronic anticoagulation; Morbid obesity with BMI of 40.0-44.9, adult (HCC) 10/05/2024 Telephone [facility] Cardiology [address] [place] [address] Elio Abad MD Med Refill from Last 3 Months Surgical History Surgery Date Site/Laterality Comments TONSILLECTOMY AND ADENOIDECTOMY DILATION AND CURETTAGE OF UTERUS CARDIAC CATHETERIZATION 07/15/2020 No CAD CARDIOVERSION CATARACT EXTRACTION, BILATERAL Medical History Medical History Date Comments Hypertension Heart valve problem Heart murmur Cardiac rhythm disturbance Obesity Wears partial dentures Paroxysmal atrial fibrillation (HCC) 06/26/2020 Mild aortic valve stenosis 06/26/2020 Nonrheumatic aortic (valve) stenosis CKD (chronic kidney disease) , stage III (HCC) 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 Family History Relation Name Status Comments Father (Age 64) Cause of d eath: surgical complication Mother (Age 56) Cause of d eath: accident Social History Tobacco Use Types Packs/Day Years [...] on file 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 Gender Identity Not on file Sexual Orientation Not on file Obstetrics History Last Filed Vital Signs Vital Sign Reading [...] 11/08/2024 10:05 AM CDT Plan of Treatment Health Maintenance Due Date Last Done Comments Depression Screening 1945 Hepatitis C Screening 1945 Osteoporosis Screening-Bone Density Scan 1945 DTaP/Tdap/Td Vaccine (1 - Tdap) 1957 Hepatitis B Screening 1964 Pneumococcal vaccine 65+ (1 of 2 - PCV) 1965 Zoster Vaccine (1 of 2) 1996 Well Visit 65+ 2011 Fall Risk Assessment 04/13/2025 04/13/2024 Influenza Vaccine (Season Ended) 2025 Procedures Procedure Name Priority Date/Time Associated Diagnosis Comments ELECTROCARDIOGRAM REPORT Routine 11/08/2024 Nonrheumatic aortic valve stenosis from Last 3 Months Results * Electrocardiogram Report (11/08/2024) 11/08/2024 Des Cain MD ECG ORDERABLES Final Result from Last 3 Months Insurance MEDICARE [facility] MEDICARE [facility] Care Teams Gas Station Supervisor Relationship Specialty Start Date End Date Kingsley Augustin DO [address] [place] [address] PCP - General Family Medicine 07/08/20
[2024-12-01 12:48] LABS: Hematocrit 46.5 % (35.0-42.0); Hemoglobin 14.3 g/dL (11.7-13.8); Mean Corpuscular HGB Conc 30.8 g/dL (32-36); Mean Corpuscular Hemoglobin 28.5 pg (27.0-31.0); Mean Corpuscular Volume 92.6 fL (78.0-102.0); Mean Platelet Volume 10.9 fl (9.2-11.8); Platelet Count Result 299 K/mm3 (150-420); Red Blood Count 5.02 M/mm3 (4.20-5.40); Red Cell Distribution Width 14.4 % (11.6-14.4); White Blood Count 6.4 K/mm3 (4.8-10.8)
[2024-12-01 12:57] LABS: Sodium Urine Random 114 mmol/L (20-110)
[2024-12-01 12:59] LABS: Add Urine Microscopic? NO; Appearance Urine Clear (Clear); Bilirubin Urine Negative (Negative); Blood Urine Negative (Negative); Color Urine Light Yellow (Yellow); Glucose Urine UA 2+ (Negative); Ketones Urine Negative (Negative); Leukocyte Esterase Ur Negative (Negative); Nitrate Urine Negative (Negative); Protein Urine Negative (Negative); Urobilinogen Urine 0.2 mg/dL (0.2-1.0); pH Urine 5.5 (5.0-8.0)
[2024-12-01 13:13] LABS: Albumin Level 3.5 g/dL (3.4-5.0); Anion Gap 5 mmol/L (4-12); Blood Urea Nitrogen 28 mg/dL (7-18); Calcium 9.6 mg/dL (8.5-10.1); Carbon Dioxide 32 mmol/L (21-32); Chloride 103 mmol/L (98-108); Estimated Glomerular Filt Rate 43; Glucose 103 mg/dL (70-99); Osmolality Calculated 295 mOsm/kg (285-295); Phosphorus 4.5 mg/dL (2.6-4.7); Potassium 4.6 mmol/L (3.5-5.1); Sodium 140 mmol/L (136-145)
[2024-12-01 14:37] LABS: Creatinine Urine 13.43 mg/dL (40-278); Total Protein Urine Random < 6.0 mg/dL (0.0-11.9); Ur Ttl Prot Creatinine Ratio 0.45 mg/mg (0-0.20)
[2024-12-02 14:18] LABS: Parathyroid Intact 49 pg/mL (16-77)
== END 2024-12-01 11:56 | disposition home or self-care (01) ==
LOC: CHSLAB 11:56
PROVIDERS: PCP Family Medicine; Visit Provider Internal Medicine Nephrology
DX: N18.31 Chronic kidney disease, stage 3a (principal)
CPT/HCPCS: 36415; 80069; 81003; 82570; 83970; 84156; 84300; 85027

== ENCOUNTER 2025-01-04 10:09 | Outpatient (CLI) | payer MEDICARE, SELFPAY ==
--- OUTSIDE RECORDS SUMMARY | 2025-01-04 10:17 | XMS_ITS | Encounter Summary ---
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 [address] [place] [address] Phone: tel: fax: Referral ID Status Reason Start Date Expiration Date V isits Requested Visits Authorized [id number] Authorized 01/04/2025 02/03/2026 1 1 Reason for Visit * Reason Comments Aortic Stenosis Atrial Fibrillation Congestive Heart Failure Hypertension 6 mo f/u Encounter Details Date Type Department Care Team (Late st Contact Info) Description 01/04/2025 9:30 AM CDT Office Visit [facility] Cardiology [address] [facility] [address] [place] [address] Elio Abad MD [address] [facility] [address] [place] [address] alf current use of amiodarone (Primary Dx); Nonrheumatic aortic valve stenosis; Chronic anticoagulation; Paroxysmal atrial fibrillation (HCC); Essential hypertension; Chronic diastolic (congestive) heart failure (HCC) Social History Tobacco Use Types Packs/Day Years Used Date Smoking Tobacco: Never Smokeless Tobacco: Never Personal Safety Answer Date Recorded Have you ever been in or are you currently in a harmful physical or emotional relationship or is someone making you feel afraid or unsafe? 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 Gender Identity Not on file Sexual Orientation Not on file documented as of this encounter Last Filed Vital Signs Vital Sign Reading Time Taken Comments Blood Pressure 134/82 01/04/2025 9:26 AM CDT Pulse 62 01/04/2025 9:26 AM CDT Temperature - - Respiratory Rate - - Oxygen Saturation 96% 01/04/2025 9:26 AM CDT Inhaled Oxygen Concentration - - Weight 100.7 kg (222 lb) 01/04/2025 9:26 AM CDT Height 154.9 cm (5' 1 ) 01/04/2025 9:26 AM CDT Body Mass Index 41.95 01/04/2025 9:26 AM CDT documented in this encounter Progress Notes * Elio Abad MD - 01/04/2025 9:30 AM CDT [facility] Cardiology [address] [place] [address] Date of Visit: 01/04/2025 Patient ID: Aleta Kenny 1945 Chief Complaint: Aleta Kenny is a 79 y.o. female comes the office for follow-up after she was evaluated for atrial fibrillation and had a cardiac catheterization after her stress test was abnormal. History of Present Illness: Aleta Kenny is a 79 y.o. female with a past medical history of osteoarthritis. She went to [facility] for routine evaluation and was found to be in AFib with RVR. Her blood pressure was also quite elevated. She was transferred from [place] to [facility] on 06/26/2020. Dr. Abad met her in consultation. She went back in to sinus rhythm overnight on a diltiazem drip. CHADS2 Vasc score is 3 (age, gender, HTN). She was started on Eliquis and metoprolol. Her echocardiogram showed normal LV systolic function with moderate aortic stenosis. SOHAN was 1.0 cm2 and mean gradient 15 mmHg. She also had mild MR and mildly enlarged left atrium. She was advised to have an outpatient ischemic evaluation. She return to our office on 07/01/2020 for a Lexiscan nuclear stress test which showed small reversible defect in the anterior and apical areas. Hospital follow-up with HEAD OF SALES AND MARKETING 07/08/2020: She has not had any bleeding problems. She has not been checking her blood pressure. She is undecided whether she wants to pursue a cardiac catheterization. Shehas questions about the risks of the procedure, what she could expect if she needed a PCI, what hertime off work would be like after the procedure, risks of katie COVID-19. She would also be facing some transportation issues getting to and from the hospital for the cardiac catheterization. She is planning to follow with molecular biology scientist in the [facility]. Office visit with HEAD OF SALES AND MARKETING 09/16/2020: She proceeded to have a cardiac catheterization on 07/15/2020 and it showed no coronary artery disease. There was some calcium in the superior wall of the left main but no stenosis. Her mean aortic valve gradient was 6.6 mmHg and the SOHAN was 1.6 cm2. Her central aortic pressure was 162/70 with an EDP of 14. Today in follow-up she says she has had 3-4 short episodes of AFib in the last 2 months. None of these episodes have lasted over an hour. They have resolvedspontaneously. She is being compliant with metoprolol and Eliquis. 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 and received her 2nd COVID -19 vaccine yesterday. She wants to lose weight, s pecifically she wants to get below 200. Twelve lead ECG performed in the office today was reviewed by me personally and shows sinus rhythm, normal axis and intervals, rate 70 beats per minute Follow-up note 04/10/2021: She has some self-limiting palpitations lasting for a few seconds 3-4 times per month otherwise has no chest pain, syncope, paroxysmal nocturnal dyspnea, orthopnea, edema or shortness of breath. No bleeding problems. Follow-up note 10/17/2021: Her palpitations have improved. Her weight is down. She does have a little bit of puffiness in her ankles but nothing significant or different from usual. She denies any syncope, presyncope, palpitations, chest pain, shortness of breath or bleeding problems Follow-up note 06/22/2022: She has little bit of ankle edema she thinks but otherwise has been doing fine and denies any chest pain, shortness breath, syncope, presyncope, paroxysmal nocturnal dyspnea orthopnea, palpitations or bleeding problems. Hospital follow-up HEAD OF SALES AND MARKETING 09/24/2022: She was hospitalized at [facility] on 08/15/2022 in AFib with RVR and a large left pleural effusion. She was put on a Cardizem drip. New echocardiogram showed decline in her LV function with an EF around 35% so the Cardizem drip was stopped. Cardioversion was attempted but unsuccessful. She was put on amiodarone and digoxin, and metoprolol was increased. Nephrology (Dr. Lira) was consulted for elevated creatinine and low-sodium. This resolved by the time of discharge. She was given a consult to Hematology at discharge (for abnormal serum and urine immunofixation? ). Today the patient reports she is feeling much better overall. Dyspnea and fatigue have improved significantly. She is able to go up and down her basement stairs and do laundry without difficulty. She does not think she is gone back into AFib. She denies orthopnea or PND. She had an ECG at her PCP office shortly after discharge that showed sinus rhythm. Follow-up note 12/29/2022: She returns today not feeling very well. She is nauseated. She has done some research on her own and feels like it could be from her digoxin. She is also on amiodarone however. She denies any chest pain, syncope, presyncope, paroxysmal nocturnal dyspnea orthopnea, edema palpitations. Follow-up note 07/30/2023: She returns today feeling pretty well. She feels much better off of digoxin and on a lower dose of amiodarone. She has unfortunately gained her weight back. She denies any chest pain, shortness breath, syncope, presyncope, paroxysmal nocturnal dyspnea orthopnea, edema palpitations Follow-up note 02/03/2024: She is more short of breath than she had been previously. She has unfortunately put on more weight also. She has to stop walking to and from the mailbox. She denies any chest pain. No syncope, presyncope, paroxysmal nocturnal dyspnea, orthopnea, edema or palpitations. No b leeding problems Follow-up with HEAD OF SALES AND MARKETING 06/08/2024: She proceeded to have further workup with Dr. Cain regarding the aortic stenosis, underwent FABRICE and left heart catheterization. Assessment was consistent with moderate aortic stenosis and ongoing observation was advised. She had no obstructive disease on her coronary angiogram. She had an LVEDP of 47 mmHg and was started on spironolactone and Jardiance. Today she reports her fluid retention has improved. Shortness of breath has stabilized. However labs for follow-up with [employer] rep showed worsening of renal function (pre cath labs 04/12 showed creatinine 0.95, GFR 57, [employer] rep labs 05/22 showed creatinine 1.5, GFR around 31). Follow-up note 01/04/2025: She feels relatively well. She has no significant chest pain, shortness breath, syncope, presyncope, paroxysmal nocturnal dyspnea, orthopnea, unusual edema or palpitations. Records that I personally reviewed on the day of this visit include: (the interpretation is outlined in the HPI above) 07/08/2020 office note from myself, 07/15/2020 cardiac catheterization report and lab results I have also reviewed: allergies, current medications, past family history, past medical history, past social history, past surgical history and problem list Review of Systems Constitutional: Negative for diaphoresis, fever, malaise/fatigue, weight gain and weight loss. HENT: Negative for hearing loss. Eyes: Negative for visual disturbance. Cardiovascular: Negative for chest pain, claudication, dyspnea on exertion, leg swelling, orthopnea, palpitations, paroxysmal nocturnal dyspnea and syncope. Respiratory: Negative for cough, hemoptysis, shortness of breath, snoring and wheezing. Hematologic/Lymphatic: Does not bruise/bleed easily. Skin: Negative for poor wound healing and rash. Musculoskeletal: Negative for joint pain and myalgias. Gastrointestinal: Negative for heartburn, nausea and vomiting. Genitourinary: Negative for hematuria. Neurological: Negative for dizziness, headaches and light-headedness. Psychiatric/Behavioral: Negative for depression. The patient is not nervous/anxious. Vital Signs: BP 134/82 (BP Location: Right arm, Patient Position: Sitting) Pulse 62 Ht 154.9 cm (5' 1 ) Wt100.7 kg (222 lb) SpO2 96% BMI 41.95 kg/mÂ² Physical Exam Vitals reviewed. Constitutional: General: She is not in acute distress. Appearance: She is well-developed. Comments: obese HENT: Head: Normocephalic and atraumatic. Nose: Nose normal. Eyes: General: No scleral icterus. Conjunctiva/sclera: Conjunctivae normal. Pupils: Pupils are equal, round, and reactive to light. Neck: Vascular: No JVD. Trachea: No tracheal deviation. Cardiovascular: Rate and Rhythm: Normal rate and regular rhythm. Heart sounds: Murmur heard. Holosystolic murmur is present with a grade of 2/6. Pulmonary: Effort: Pulmonary effort is normal. No respiratory distress. Breath sounds: Normal breath sounds. Abdominal: General: Bowel sounds are normal. Palpations: Abdomen is soft. Tenderness: There is no abdominal tenderness. Musculoskeletal: General: Swelling present. Normal range of motion. Cervical back: Normal range of motion. Comments: Trivial lower extremity edema Skin: General: Skin is warm and dry. Neurological: Mental Status: She is alert and oriented to person, place, and time. Psychiatric: Mood and Affect: Mood normal. Allergies Allergen Reactions Metronidazole Syncope and Dizziness Penicillins Shortness of breath Poison Muna Extract Swelling and Rash Current Outpatient Medications: amiodarone (PACERONE) 200 mg tablet, TAKE 1 TABLET BY MOUTH EVERY DAY, Disp: 90 tablet, Rfl: 3 Eliquis 5 mg tablet, TAKE 1 TABLET BY MOUTH EVERY 12 HOURS, Disp: 180 tablet, Rfl: 1 empagliflozin (JARDIANCE) 10 mg tablet, Take 1 tablet (10 mg total) by mouth daily, Disp: 30 tablet, Rfl: 11 furosemide (LASIX) 20 mg tablet, Take 1 tablet (20 mg total) by mouth daily (Patient taking differently: Take 1 tablet (20 mg total) by mouth every other day), Disp: 30 tablet, Rfl: 11 irbesartan (AVAPRO) 150 mg tablet, Take 1 tablet (150 mg total) by mouth daily, Disp: , Rfl: metoprolol XL (TOPROL-XL) 100 mg 24 hr tablet, Take 1 tablet (100 mg total) by mouth every morning,Disp: 90 tablet, Rfl: 1 spironolactone (ALDACTONE) 25 mg tablet, Take 1 tablet (25 mg total) by mouth daily (Patient takingdifferently: Take 0.5 tablets (12.5 mg total) by mouth daily), Disp: 30 tablet, Rfl: 11 vitamin E 1,000 unit capsule, Take 1 capsule (1,000 Units total) by mouth daily, Disp: , Rfl: Lab Results Component Value Date CREATININE 0.90 11/02/2022 07/15/2020 BMP K 4.4, BUN 15, creatinine 0.8 ECG 09/16/2020 sinus rhythm, normal axis and normal intervals, rate 70 beats per minute EKG 10/17/2021: Sinus bradycardia otherwise normal EKG 12/29/2022: Marked sinus bradycardia. Low voltage. Abnormal EKG ECHO 06/26/2020 normal LV systolic function with moderate aortic stenosis. SOHAN was 1.0 cm2 and meangradient 15 mmHg. She also had mild MR and mildly enlarged left atrium. Lexiscan stress test 07/01/2020 small reversible defect in the anterior and apical areas. Right and left cardiac catheterization 09/14/2019 mean aortic valve gradient 6.6 mmHg, SOHAN 1.6 cm2,mild global LV systolic dysfunction with EF 50%, no wall motion abnormalities, and right coronary dominant circulation with no evidence of significant coronary artery disease. ECHO 11/02/2022 Normal left ventricular systolic function. No focal wall motion abnormalities. Normal left ventricular size. Mild concentric left ventricular hypertrophy. There is pseudonormal diastolic dysfunction Grade II. Ejection fraction is measured at 67 %. There is mild enlargement of left atrium. Trivial regurgitation of the mitral valve. Aortic valve not well visualized. Moderate aortic stenosis. Peak gradient of 49.0 mmHg. Mean gradient of 25.0 mmHg. Valve area of 1.05 cm2. Aortic cusps appear mildly calcified. No aortic regurgitation. Estimated peak RVSP is 34 mmHg. Mild tricuspid regurgitation. Compared to an echocardiogram done on August 17, 2022 heart function much improved. Right ventricular size and systolic function appears to be normal. Evidence of moderate aortic stenosis. Echocardiogram January 2024: EF 55-60%. Severe with valve area calculated at 0.8 cm2. Mean [id number]. Peak velocity 3.46 meters m/sec. Mild LVH. Moderate left atrial enlargement. Assessment: Diagnoses and all orders for this visit: Paroxysmal atrial fibrillation (CMS/HCC) (HCC) (Primary) Generally in sinus rhythm and on anticoagulation Chronic anticoagulation No bleeding problems Non rheumatic aortic valve stenosis moderate and asymptomatic: Followed by Dr. Cain Essential hypertension At goal Long-term current use of amiodarone Chronic diastolic congestive heart failure Fairly well compensated Plan/Recommendations: She remains on amiodarone. Rhythm is stable. Continue amiodarone for PAF as well as Eliquis for anticoagulation and stroke prophylaxis because of AFib. She is due for testing because of the amiodarone. We will order a comprehensive metabolic panel TSH, T4, chest x-ray and PFTs Defer aortic valve management to Dr. Cain. She is going to have an echocardiogram later on the summer and follow-up with him Follow-up in 6 months or sooner as clinically indicated Elio Abad MD, [facility] This note is dictated and transcribed using Ketto Direct Software. Slat Pickler variancesmay occur. Despite proofreading, typographical errors may occur. documented in this encounter Plan of Treatment Scheduled Orders Name Type Priority Associated Diagnoses Order Schedule XR Chest Pa Lateral 2 Views Imaging Schedule Routine, Read Routine (OP Routine) medical charge entry specialist current use of amiodarone Expected: 01/04/2025, Expires: 01/04/2026 Comprehensive metabolic panel Lab Routine alf current use of amiodarone Expected: 01/04/2025 (Approximate), Expires: 01/04/2026 TSH Lab Routine alf current use of amiodarone Expected: 01/04/2025 (Approximate), Expires: 01/04/2026 T4, free Lab Routine medical charge entry specialist current use of amiodarone Expected: 01/04/2025, Expires: 01/04/2026 Pulmonary Function Test -External PFT Routine medical charge entry specialist current use of amiodarone 1 Occurrences starting 01/04/2025 until 01/04/2026 documented as of this encounter Visit Diagnoses Diagnosis medical charge entry specialist current use of amiodarone- Primary Nonrheumatic aortic valve stenosis Chronic anticoagulation Encounter for long-term (current) use of anticoagulants Paroxysmal atrial fibrillation (HCC) Atrial fibrillation Essential hypertension Unspecified essential hypertension Chronic diastolic (congestive) heart failure (HCC) documented in this encounter Discontinued Medications Medication Sig Discontinue Reason Start Date End Da te losartan (COZAAR) 100 mg tablet Take 1 tablet (100 mg total) by mouth daily Alternate therapy 12/20/2023 01/04/2025 documented as of this encounter Historical Medications * This list may reflect changes made after this encounter. irbesartan (AVAPRO) 150 mg tablet Take 1 tablet (150 mg total) by mouth daily 12/19/2024 added in this encounter Care Teams Manager Rn Case Relationship Specialty Start Date End Date Kingsley Augustin DO [address] [place] [address] PCP - General Family Medicine 07/08/20 documented as of this encounter
--- OUTSIDE RECORDS SUMMARY | 2025-01-04 10:17 | XMS_ITS | Clinical Summary ---
Author Organization [facility] [place] [address] Address [address] [place] [address] Care Team Providers Care Registration Manager Name Role Phone Kingsley Augustin DO Primary Care Provider Allergies Active Allergy Reactions Criticality Noted Date Comments Metronidazole Syncope,Dizziness High 07/01/2020 Penicillins Shortness of breath High 07/01/2020 Poison Muna Extract Swelling,Rash Medium 07/08/2020 Medications vitamin E 1,000 unit capsule Take 1 capsule (1,000 Units total) by mouth daily Active empagliflozin (JARDIANCE) 10 mg tablet Take 1 tablet (10 mg total) by mouth daily 30 tablet 04/13/20 24 Active furosemide (LASIX) 20 mg tablet Take 1 tablet (20 mg total) by mouth daily 30 tablet 04/13/20 24 2024 Active Additional Information Patient taking differently:20 mg oralEvery other day, Reported on 01/04/2025 spironolactone (ALDACTONE) 25 mg tablet Take 1 tablet (25 mg total) by mouth daily 30 tablet 04/13/20 24 2024 Active Additional Information Patient taking differently: 12.5 mgoral Daily, Reported on 01/04/2025 Eliquis 5 mg tabletIndicatio ns:Paroxysmal atrial fibrillation (HCC) TAKE 1 TABLET BY MOUTH EVERY 12 HOURS 180 tablet 1 08/29/19 25 Active metoprolol XL (TOPROL-XL) 100 mg 24 hr tablet Take 1 tablet (100 mg total) by mouth every morning 90 tablet 1 10/05/19 25 Active amiodarone (PACERONE) 200 mg tablet TAKE 1 TABLET BY MOUTH EVERY DAY 90 tablet 3 01/02/20 25 Active irbesartan (AVAPRO) 150 mg tablet Take 1 tablet (150 mg total) by mouth daily 12/20/19 25 Active losartan (COZAAR) 100 mg tablet Take 1 tablet (100 mg total) by mouth daily 12/20/19 24 2024 Discontinued(A lternate therapy) amiodarone (PACERONE) 200 mg tablet Take 1 tablet (200 mg total) by mouth daily 90 tablet 3 03/01/20 24 2024 Discontinued Active Problems Problem Noted Date Diagnosed Date Chronic diastolic (congestive) heart failure 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 current use of amiodarone 07/30/2023 Paroxysmal atrial fibrillation 09/16/2020 Chronic anticoagulation 09/16/2020 Nonrheumatic aortic valve stenosis 09/16/2020 Essential hypertension 09/16/2020 False positive cardiac stress test 07/15/2020 Encounters Date Type Department Care Team Description 01/04/2025 9:30 AM CDT Office Visit [facility] Cardiology [address] [place] [address] Elio Abad MD half-way current use of amiodarone (Primary Dx); Nonrheumatic aortic valve stenosis; Chronic anticoagulation; Paroxysmal atrial fibrillation (HCC); Essential hypertension; Chronic diastolic (congestive) heart failure (HCC) 11/08/2024 10:00 AM CDT Office Visit [facility] Cardiology [address] [place] [phone] Des Cain MD Nonrheumatic aortic valve stenosis (Primary Dx); Chronic diastolic congestive heart failure (HCC); Paroxysmal atrial fibrillation (HCC); Chronic anticoagulation; Morbid obesity with BMI of 40.0-44.9, adult (HCC) from Last 3 Months Surgical History Surgery [...] 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 Family History Relation Name Status Comments Father [...] on file Legal 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 Gender Identity Not on file Sexual Orientation Not on file Obstetrics History Last Filed Vital Signs Vital Sign Reading Time Taken Comments Blood Pressure 134/82 01/04/2025 9:26 AM CDT Pulse 62 01/04/2025 9:26 AM CDT Temperature 36.3 C (97.3 F) 04/13/2024 5:00 PM CDT Respiratory Rate 16 04/13/2024 5:25 PM CDT Oxygen Saturation 96% 01/04/2025 9:26 AM CDT Inhaled Oxygen Concentration - - Weight 100.7 kg (222 lb) 01/04/2025 9:26 AM CDT Height 154.9 cm (5' 1 ) 01/04/2025 9:26 AM CDT Body Mass Index 41.95 01/04/2025 9:26 AM CDT Plan of Treatment Health Maintenance [...] Result from Last 3 Months Insurance MEDICARE [facility] MEDICARE [employer] [facility] Care Teams Registration Manager Relationship Specialty Start Date End Date Kingsley Augustin DO [address] [place] [address] PCP - General Family Medicine 07/08/20
--- OUTSIDE RECORDS SUMMARY | 2025-01-04 10:17 | XMS_ITS | Clinical Summary ---
Author Organization [facility] Address [address] [place] [address] Care Team Providers Care Boring Machine Set Up Operator Jig Name Role Phone Kingsley Augustin DO Primary Care Provider [phone] Allergies Active Allergy Reactions Criticality Noted Date [...] Take 20 mg by mouth daily. 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 Gender Identity Not on file Sexual Orientation Not on file Last Filed Vital Signs Vital Sign Reading Time Taken Comments Blood Pressure 148/64 06/07/2024 10:00 AM CDT patient has known BP follows warehouse analyst Pulse 64 06/07/2024 10:00 AM CDT Temperature 36.7 C (98 F) 06/07/2024 10:00 AM CDT Respiratory Rate 20 06/07/2024 10:0 0 AM CDT Oxygen Saturation 94% 06/07/2024 10: 00 AM CDT Inhaled Oxygen Concentration - - Weight 103 kg (227 lb) 06/07/2024 10:00 AM CDT Height 155.4 cm (5' 1.2 ) 10/19/2022 9: 37 AM GOLF CLUB MANAGER Body Mass Index 42.61 10/19/2022 9:37 AM GOLF CLUB MANAGER Plan of Treatment Upcoming Encounters Date Type Department Care Team (Late st Contact Info) Description 03/07/2025 10:15 AM CDT Office Visit [facility] Oncology and Hematology - [place] [address] [place] [address] [facility] [address] [place] [address] Ervin Huerta MD [address] [facility] [address] [place] [address] Health Maintenance Due Date Last Done Comments DTAP/TDAP/TD VACCINES (1 - Tdap) 1965 PNEUMOCOCCAL VACCINE 50+ YEARS (1 of 2 - PCV) 07/26/19 65 ZOSTER VACCINE (1 of 2) 1996 OSTEOPOROSIS SCREENING 2011 RSV VACCINE (60+ or ) (1 - 1-dose 75+ series) 2021 INFLUENZA VACCINE (#1) 2024 Insurance MEDICARE PART A AND B [facility] [id number] Care Teams Boring Machine Set Up Operator Jig Relationship Specialty Start Date End Date Kingsley Augustin DO [address] [place] [address] PCP - General Family Practice 10/19/22
--- OUTSIDE RECORDS SUMMARY | 2025-01-04 10:17 | XMS_ITS | Clinical Summary ---
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 Gender Identity Not on file Sexual Orientation Not on file Last Filed Vital Signs Vital Sign Reading Time Taken Comments Blood Pressure 159/74 10/13/2023 10:45 AM REAL ESTATE RECRUITER Pulse 61 10/13/2023 10:45 AM REAL ESTATE RECRUITER Temperature 36.1 C (97 F) 10/13/2023 10:45 AM REAL ESTATE RECRUITER Respiratory Rate 18 10/13/2023 10:45 AM REAL ESTATE RECRUITER Oxygen Saturation 98% 10/13/2023 10:45 AM REAL ESTATE RECRUITER Inhaled Oxygen Concentration - - Weight 93.4 kg (206 lb) 10/06/2023 11:23 AM REAL ESTATE RECRUITER Height 154.9 cm (5' 1 ) 10/06/2023 11:23 AM REAL ESTATE RECRUITER Body Mass Index 38.92 10/06/2023 11:23 AM REAL ESTATE RECRUITER Plan of Treatment Health Maintenance Due Date Last Done Comments Hepatitis C 1964 DTaP, Tdap and Td Vaccines (1 - Tdap) 1965 Pneumococcal Vaccine: 50+ Years (1 of 1 - PCV) 1996 Zoster Vaccines (1 of 2) 1996 Annual Medicare Wellness Visit 2011 Dexa Scan (General) 2011 COVID-19 Vaccine ( season) 2024 06/12/2023, [...] this topic Medical Devices Implanted Type Area Mallet Cutter Device Identifier Shelf Expiration Date Model / Serial / Lot Tecnis Implanted:Qty: 1 on 07/07/2023 by Mylene Mckeon MD at [facility] Right: Eye [employer] [id number] 11/29/2025 [id number] / [id number] / [id number] Nathalie Rudd Implanted:Qty: 1 on 10/13/2023 by Mylene Mckeon MD at [facility] Left: Eye [id number] 12/12/2025 DIB00 / [id number] / [id number] [facility] Care Teams Furnace Combustion Tester Relationship Specialty Start Date End Date Kingsley Augustin DO [address] [place] [address] PCP - General FAMILY PRACTICE 07/05/23
--- OUTSIDE RECORDS SUMMARY | 2025-01-04 10:17 | XMS_ITS | Referral Summary ---
Author Organization [place] [address] [address] [place] [address] Care Team Providers Care Service Center Appraiser Name Role Phone Kingsley Augustin DO Primary Care Provider Encounters Date Type Department Care Team Description 01/04/2025 9:30 AM CDT Office Visit [facility] Cardiology [address] [place] [address] [address] [place] [address] Elio Abad MD [facility] current use of amiodarone (Primary Dx); Nonrheumatic aortic valve stenosis; Chronic anticoagulation; Paroxysmal atrial fibrillation (HCC); Essential hypertension; Chronic diastolic (congestive) heart failure (HCC) 11/08/2024 10:00 AM CDT Office Visit [facility] Cardiology [address] [place] [address] [place] [phone] Des Cain MD Nonrheumatic aortic valve stenosis (Primary Dx); Chronic diastolic congestive heart failure (HCC); Paroxysmal atrial fibrillation (HCC); Chronic anticoagulation; Morbid obesity with BMI of 40.0-44.9, adult (HCC) from Last 3 Months Allergies Active Allergy Reactions Criticality Noted Date Comments Metronidazole Syncope,Dizziness High 07/01/2020 Penicillins Shortness of breath High 07/01/2020 Poison Muna Extract Swelling,Rash Medium 07/08/2020 Medications vitamin E 1,000 unit capsule Take 1 capsule (1,000 Units total) by mouth daily Active empagliflozin (JARDIANCE) 10 mg tablet Take 1 tablet (10 mg total) by mouth daily 30 tablet 04/13/20 Active furosemide (LASIX) 20 mg tablet Take [...] Diagnosed Date Chronic diastolic (congestive) heart failure [facility] current use of amiodarone 07/30/2023 Paroxysmal atrial [...] on file 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 Gender Identity Not on file Sexual [...] 01/04/2025 9:26 AM CDT Plan of Treatment Not on file Procedures Procedure Name Priority Date/Time Associated Diagnosis Comments ELECTROCARDIOGRAM REPORT Routine 11/08/2024 Nonrheumatic aortic valve stenosis from Last 3 Months Results * Electrocardiogram Report (11/08/2024) 11/08/2024 Des Cain MD ECG ORDERABLES Final Result from Last 3 Months Insurance MEDICARE [facility] MEDICARE [facility] Care Teams Service Center Appraiser Relationship Specialty Start Date End Date Kingsley Auugstin DO [address] [place] [address] PCP - General Family Medicine 07/08/20
[2025-01-04 10:57] LABS: Alanine Aminotransferase 23 U/L (6-35); Albumin Level 4.4 g/dL (3.5-5.1); Alkaline Phosphatase 133 U/L (38-126); Anion Gap 10 mmol/L (4-12); Aspartate Amino Transferase 32 U/L (14-36); Bilirubin,Total 0.6 mg/dL (0.2-1.3); Blood Urea Nitrogen 32 mg/dL (7-17); Calcium 9.1 mg/dL (8.4-10.2); Carbon Dioxide 28 mmol/L (22-30); Chloride 101 mmol/L (98-107); Estimated Glomerular Filt Rate 43; Glucose 110 mg/dL (65-110); Potassium 4.6 mmol/L (3.4-5.0); Sodium 139 mmol/L (137-145)
[2025-01-04 12:05] LABS: Free T4 Free Thyroxine 1.93 ng/dL (0.78-2.19)
== END 2025-01-04 10:10 | disposition home or self-care (01) ==
LOC: ANHLAB 10:14
PROVIDERS: PCP Family Medicine; Visit Provider Internal Medicine Cardiovascular Disease
DX: Z79.899 Other long term (current) drug therapy (principal)
CPT/HCPCS: 36415; 80053; 84439; 84443

== ENCOUNTER 2025-01-31 09:33 | Outpatient (CLI) | payer MEDICARE, SELFPAY ==
--- NOTE | ~2025-01-31 | XR_ITS ---
EXAMINATION: XR chest 2V 01/31/2025 11:15 INDICATION: Long-term use of amiodarone PROCEDURE: 2 view chest COMPARISON: Comparison to multiple prior studies sequentially, with oldest reviewed study dated 11/2019. FINDINGS: The lungs are clear. The cardiomediastinal silhouette is within normal limits. There are no pleural effusions. There is no pneumothorax suspected. The lungs are hyperinflated which is cons istent with, but not diagnostic of chronic obstructive pulmonary disease. IMPRESSION: 1: NO ACUTE CARDIOPULMONARY DISEASE. Reviewed, dictated and finalized at location B.
--- OUTSIDE RECORDS SUMMARY | 2025-01-31 10:30 | XMS_ITS | Clinical Summary ---
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 Gender Identity Not on file Sexual Orientation Not on file Last Filed Vital Signs Vital Sign Reading Time Taken Comments Blood Pressure 148/64 06/07/2024 10:00 AM CDT patient has known BP follows river tester Pulse 64 06/07/2024 10:00 AM CDT Temperature 36.7 C (98 F) 06/07/2024 10:00 AM CDT Respiratory Rate 20 06/07/2024 10:0 0 AM CDT Oxygen Saturation 94% 06/07/2024 10: 00 AM CDT Inhaled Oxygen Concentration - - Weight 103 kg (227 lb) 06/07/2024 10:00 AM CDT Height 155.4 cm (5' 1.2) 10/19/2022 9: 37 AM WIRE WORKER Body Mass Index 42.61 10/19/2022 9:37 AM WIRE WORKER Plan of Treatment Upcoming Encounters Date Type Department Care Team (Late st Contact Info) Description 03/07/2025 10:15 AM CDT Office Visit [facility] Oncology and Hematology - [place] [address] [facility] [address] [facility] [address] [place] [address] Ervin Huerta MD [address] [facility] [address] [place] [address] Health Maintenance Due Date Last Done Comments DTAP/TDAP/TD VACCINES (1 - Tdap) 1965 PNEUMOCOCCAL VACCINE 50+ YEARS (1 of 2 - PCV) 07/26/19 65 ZOSTER VACCINE (1 of 2) 1996 OSTEOPOROSIS SCREENING 2011 RSV VACCINE (60+ or ) (1 - 1-dose 75+ series) 2021 INFLUENZA VACCINE (#1) 2024 Insurance MEDICARE PART A AND B [facility] [id number] [place] [address] Care Teams Water Control Supervisor Relationship Specialty Start Date End Date Kingsley Augustin DO [address] [place] [address] PCP - General Family Practice 10/19/22
--- OUTSIDE RECORDS SUMMARY | 2025-01-31 10:30 | XMS_ITS | Referral Summary ---
Author Organization [facility] [address] [place] [address] [address] [address] Care Team Providers Care Upholstery Handler Name Role Phone Kingsley Augustin DO Primary Care Provider Encounters Date Type Department Care Team Description 01/04/2025 9:30 AM CDT Office Visit [facility] Cardiology [address] [place] [address] [address] [place] [address] Elio Abad MD [facility] current use of amiodarone (Primary Dx); Nonrheumatic aortic valve stenosis; Chronic anticoagulation; Paroxysmal atrial fibrillation (HCC); Essential hypertension; Chronic diastolic (congestive) heart failure (HCC) 11/08/2024 10:00 AM CDT Office Visit [facility] Cardiology [address] [place] [address] [place] [phone] Des Cain MD Nonrheumatic aortic valve [...] total) by mouth daily 30 tablet 04/13/20 025 Active Additional Information Patient taking differently:20 mg oralEvery other day, Reported on 01/04/2025 spironolactone (ALDACTONE) 25 mg tablet Take 1 tablet (25 mg total) by mouth daily 30 tablet 04/13/20 24 025 Active Additional Information Patient taking differently: 12.5 mgoral Daily, Reported on 01/04/2025 Eliquis 5 mg tabletIndication s:Paroxysmal atrial fibrillation [...] (100 mg total) by mouth daily 12/20/19 025 Discontin ued(Alter lavern therapy) Active Problems Problem Noted Date Diagnosed Date Chronic diastolic (congestive) heart failure [facility] current use of [...] on file Legal 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 Gender Identity Not on file Sexual [...] 9:26 AM CDT Height 154.9 cm (5' 1) 01/04/2025 9:26 AM CDT Body Mass Index 41.95 01/04/2025 9:26 AM CDT Plan of Treatment Not on file Procedures Procedure Name Priority Date/Time Associated Diagnosis Comments ELECTROCARDIOGRAM REPORT Routine 11/08/2024 Nonrheumatic aortic valve stenosis from Last 3 Months Results * Electrocardiogram Report (11/08/2024) 11/08/2024 us Des Cain MD ECG ORDERABLES Final Result from Last 3 Months Insurance MEDICARE [facility] MEDICARE [facility] Care Teams Upholstery Handler Relationship Specialty Start Date End Date Kingsley Augustin DO [address] [place] [address] PCP - General Family Medicine 07/08/20
--- OUTSIDE RECORDS SUMMARY | 2025-01-31 10:30 | XMS_ITS | Clinical Summary ---
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 07/30/2023 Paroxysmal atrial fibrillation 09/16/2020 Chronic anticoagulation 09/16/2020 Nonrheumatic aortic valve stenosis 09/16/2020 Essential hypertension 09/16/2020 False positive cardiac stress test 07/15/2020 Encounters Date Type Department Care Team Description 01/04/2025 9:30 AM CDT Office Visit [facility] Cardiology [address] [facility] [address] [place] [phone] Elio Abad MD [facility] current use of amiodarone (Primary Dx); Nonrheumatic aortic valve stenosis; Chronic anticoagulation; Paroxysmal atrial fibrillation (HCC); Essential hypertension; Chronic diastolic (congestive) heart failure (HCC) 11/08/2024 10:00 AM CDT Office Visit [facility] Cardiology [address] [facility] [address] [place] [phone] Des Cain MD Nonrheumatic aortic valve stenosis [...] 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 sees livestock 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
--- NOTE | 2025-02-01 12:07 | WPDPFTINT ---
PFT Procedure Performed PFT Procedure Performed Plethysmography (Lung Vol) Diffusing Cap (DLCO) Flow Vol Loop Spirometry w/o Bronchodil PFT Interpretation This is a pulmonary function test with spirometry, plethysmography and diffusing capacity. The test was performed and results interpreted in accordance with the 2019 and 2005 ATS/ERS Task Force guidelines respectively using the Global Lung Function Initiative-2012 reference equations. Patient demonstrated good effort and cooperation. Reproducibility criteria were met. The quality of the spirometry maneuver was Grade A. Findings: Spirometry: The contour the inspiratory and expiratory flow tracing are normal. The FVC is 1.86 L, 80% predicted. The FEV1 is 1.38 L, 77% predicted. The FEV1: FVC ratio 74%. Plethysmography: The total lung capacity is 3.73 L, 81% predicted. The functional residual capacity is 1.85 L, 70% predicted. The residual volume is 1.73 L, 78% predicted. Diffusing capacity: The diffusing capacity unadjusted for hemoglobin and carboxyhemoglobin is 14.3, 78% predicted. The diffusing capacity adjusted for alveolar volume is 4.54, 105% predicted. Impression: The spirometry is normal without evidence of an obstructive abnormality. The lung volumes are normal. The diffusing capacity is normal. There are no prior studies for comparison
== END 2025-01-31 09:34 | disposition home or self-care (01) ==
LOC: ANHPFT 09:35
PROVIDERS: PCP Family Medicine; Visit Provider Internal Medicine Cardiovascular Disease
DX: Z79.899 Other long term (current) drug therapy (principal)
CPT/HCPCS: 71046; 94375; 94726; 94729

== ENCOUNTER 2025-02-16 09:43 | Outpatient (CLI) | payer MEDICARE, SELFPAY ==
[2025-02-16 10:02] LABS: Basophils Absolute Auto 0.04 K/mm3 (0.00-0.10); Basophils Percent Auto 0.6 % (0.0-1.0); Eosinophils Absolute Auto 0.16 K/mm3 (0.02-0.50); Eosinophils Percent Auto 2.3 % (1.0-6.0); Hematocrit 42.6 % (35.0-42.0); Hemoglobin 13.7 g/dL (11.7-13.8); Immature Granulocyte Absolute 0.02 K/mm3 (0.00-0.00); Immature Granulocyte Percent A 0.3 % (0.0-0.0); Lymphocytes Absolute Auto 1.58 K/mm3 (1.10-4.50); Lymphocytes Percent Auto 22.5 % (18.0-42.0); Mean Corpuscular HGB Conc 32.2 g/dL (32-36); Mean Corpuscular Hemoglobin 29.8 pg (27.0-31.0); Mean Corpuscular Volume 92.8 fL (78.0-102.0); Mean Platelet Volume 10.7 fl (9.2-11.8); Monocytes Absolute Auto 0.81 K/mm3 (0.10-0.90); Monocytes Percent Auto 11.5 % (2.0-11.0); Neutrophils Absolute Auto 4.41 K/mm3 (1.70-7.20); Neutrophils Percent Auto 62.8 % (50.0-70.0); Platelet Count Result 295 K/mm3 (150-420); Red Blood Count 4.59 M/mm3 (4.20-5.40); Red Cell Distribution Width 13.6 % (11.6-14.4)
[2025-02-16 10:21] LABS: Alanine Aminotransferase 16 U/L (6-35); Albumin Level 3.9 g/dL (3.5-5.1); Alkaline Phosphatase 120 U/L (38-126); Anion Gap 7 mmol/L (4-12); Aspartate Amino Transferase 25 U/L (14-36); Bilirubin,Total 0.8 mg/dL (0.2-1.3); Blood Urea Nitrogen 31 mg/dL (7-17); Calcium 8.9 mg/dL (8.4-10.2); Carbon Dioxide 24 mmol/L (22-30); Chloride 104 mmol/L (98-107); Estimated Glomerular Filt Rate 37; Glucose 106 mg/dL (65-110); Osmolality Calculated 286 mOsm/kg (285-295); Potassium 5.1 mmol/L (3.4-5.0); Sodium 135 mmol/L (137-145); Total Protein 6.9 g/dL (6.3-8.2)
[2025-02-18 03:23] LABS: Immunoglobulin A 728 mg/dL (70-320); Immunoglobulin G 712 mg/dL (600-1540); Immunoglobulin M 34 mg/dL (50-300)
[2025-02-18 06:43] LABS: Protein, Total 6.9 g/dL (6.1-8.1)
[2025-02-19 12:43] LABS: Kappa\\Lambda Light Chains 1.99 (0.26-1.65); Lambda Light Chain 11.4 mg/L (5.7-26.3)
== END 2025-02-16 09:44 | disposition home or self-care (01) ==
LOC: CHSLAB 09:45
PROVIDERS: PCP Family Medicine; Visit Provider Internal Medicine Hematology & Oncology
DX: D47.2 Monoclonal gammopathy (principal)
CPT/HCPCS: 36415; 80053; 82784; 83521; 84155; 84165; 85025

== ENCOUNTER 2025-05-31 14:49 | Outpatient (CLI) | payer MEDICARE, SELFPAY ==
[2025-05-31 15:02] LABS: Hematocrit 38.5 % (35.0-42.0); Hemoglobin 12.1 g/dL (11.7-13.8); Immature Granulocyte Percent A 1.0 % (0.0-0.0); Lymphocytes Absolute Auto 0.89 K/mm3 (1.10-4.50); Mean Corpuscular HGB Conc 31.4 g/dL (32-36); Mean Corpuscular Hemoglobin 29.2 pg (27.0-31.0); Mean Corpuscular Volume 93.0 fL (78.0-102.0); Nucleated Red Blood Cells Absolute Auto 0.00 K/mm3 (0.00-0.00); Nucleated Red Blood Cells Perc 0.0 % (0-0.0); Platelet Count Result 408 K/mm3 (150-420); Red Blood Count 4.14 M/mm3 (4.20-5.40); White Blood Count 15.0 K/mm3 (4.8-10.8)
[2025-05-31 15:49] LABS: Alanine Aminotransferase 30 U/L (6-35); Albumin Level 3.1 g/dL (3.5-5.1); Alkaline Phosphatase 107 U/L (38-126); Amylase 49 U/L (30-110); Anion Gap 12 mmol/L (4-12); Aspartate Amino Transferase 58 U/L (14-36); Bilirubin,Total 0.5 mg/dL (0.2-1.3); Blood Urea Nitrogen 31 mg/dL (7-17); Calcium 9.2 mg/dL (8.4-10.2); Carbon Dioxide 23 mmol/L (22-30); Chloride 98 mmol/L (98-107); Estimated Glomerular Filt Rate 28; Glucose 117 mg/dL (65-110); Lipase 37 U/L (23-300); Osmolality Calculated 283 mOsm/kg (285-295); Potassium 4.6 mmol/L (3.4-5.0); Sodium 133 mmol/L (137-145); Total Protein 6.0 g/dL (6.3-8.2)
[2025-05-31 15:58] LABS: NT Pro B Type Natriuretic Pept 5070 pg/mL (19.9-100)
== END 2025-05-31 14:50 | disposition home or self-care (01) ==
PROVIDERS: PCP Nurse Practitioner Family; Visit Provider Nurse Practitioner Family
DX: I11.0 Hypertensive heart disease with heart failure (principal); I50.31 Acute diastolic (congestive) heart failure; R19.7 Diarrhea, unspecified
CPT/HCPCS: 36415; 80053; 82150; 83690; 83880; 85025

== ENCOUNTER 2025-06-01 13:11 | Emergency (ER) | payer MEDICARE, SELFPAY ==
[2025-06-01] VITALS (46 sets, daily range): BP systolic 102–132; BP diastolic 35–101; PULSE 70–92; RESP 16–20; TEMP 36.4–37.2; O2SAT 90–100
--- NOTE | ~2025-06-01 | CT_ITS ---
EXAMINATION: CT abdomen pelvis wo con, 06/01/2025 14:20 CDT HISTORY: colitis COMPARISON: No comparisons available. TECHNIQUE: CT scan of the abdomen and pelvis was performed without IV contrast. One or more of the following dose reduction techniques were used: automated exposure control, adjustment of the mA and/or kV according to patient size, use of iterative reconstruction technique. Unless otherwise stated, incidental findings do not require dedicated follow up imaging FINDINGS: CT abdomen: LUNG BASES: Trace pericardial effusion. LIVER: Within the liver there are simple and complex appearing liver cysts the largest left lobe liver 2 x 2 cm. SPLEEN: Punctate calcified splenic granulomas.. KIDNEYS: Right Kidney: Unremarkable. No calculi. No hydronephrosis. Left Kidney: Unremarkable. No calculi. No hydronephrosis ADRENAL GLANDS: Unremarkable. PANCREAS: Mild pancreatic atrophy. GALLBLADDER/BILIARY: Minimal gallbladder sludge suspected. STOMACH AND ESOPHAGUS: Moderate hiatal hernia. BOWEL/MESENTERY: There is thickening noted of the sigmoid colon consistent with acute diverticulitis with adjacent fluid collection measuring 3.5 x 3.6 cm consistent with perforated diverticulitis with abscess. There is stranding within the local mesentery. There are some thickening adjacent small bowel loops. Appendix appears normal. No dilated small bowel loops appreciated. ADENOPATHY/RETROPERITONEUM: No lymphadenopathy. AORTA/VASCULATURE: Normal caliber aorta. FREE FLUID OR FREE AIR: Small amount of free fluid.. CT pelvis: SOLID ORGANS/REPRODUCTIVE: Uterus atrophic. No adnexal mass. BLADDER: Within normal limits. OSSEOUS STRUCTURES: No acute osseous abnormality.No suspicious lesions. OVERLYING SOFT TISSUES: Unremarkable. IMPRESSION: Perforated diverticulitis of the sigmoid colon with abscess formation. Reviewed, dictated and finalized at location [facility].
[2025-06-01] MEDS: SODIUM CHLORIDE 0.9% IV 1,000 ML 150 ML IV CONT (13:20)
[2025-06-01 13:37] LABS: Hematocrit 34.3 % (35.0-42.0); Hemoglobin 10.9 g/dL (11.7-13.8); Immature Granulocyte Percent A 1.2 % (0.0-0.0); Lymphocytes Absolute Auto 0.84 K/mm3 (1.10-4.50); Mean Corpuscular HGB Conc 31.8 g/dL (32-36); Mean Corpuscular Hemoglobin 29.5 pg (27.0-31.0); Mean Corpuscular Volume 93.0 fL (78.0-102.0); Nucleated Red Blood Cells Absolute Auto 0.00 K/mm3 (0.00-0.00); Nucleated Red Blood Cells Perc 0.0 % (0-0.0); Platelet Count Result 368 K/mm3 (150-420); Red Blood Count 3.69 M/mm3 (4.20-5.40); White Blood Count 14.9 K/mm3 (4.8-10.8)
[2025-06-01 13:49] LABS: Alanine Aminotransferase 28 U/L (6-35); Albumin Level 3.0 g/dL (3.5-5.1); Alkaline Phosphatase 104 U/L (38-126); Anion Gap 10 mmol/L (4-12); Aspartate Amino Transferase 42 U/L (14-36); Bilirubin,Total 0.6 mg/dL (0.2-1.3); Blood Urea Nitrogen 32 mg/dL (7-17); Calcium 8.4 mg/dL (8.4-10.2); Carbon Dioxide 22 mmol/L (22-30); Chloride 101 mmol/L (98-107); Estimated CRCL calculation 25 ml/min; Estimated Glomerular Filt Rate 28; Glucose 113 mg/dL (65-110); INR 1.4; Lipase 39 U/L (23-300); Osmolality Calculated 283 mOsm/kg (285-295); Potassium 4.1 mmol/L (3.4-5.0); Prothrombin Time 15.0 Seconds (9.50-12.1); Sodium 133 mmol/L (137-145); Total Protein 5.8 g/dL (6.3-8.2)
[2025-06-01 15:38] LABS: Toxigenic C. Diff NEGATIVE (NEGATIVE)
[2025-06-01] MEDS: CEFEPIME 1 GM in SODIUM CHLORIDE 0.9% IV 50 ML 100 ML IVPB (15:45)
--- NOTE | 2025-06-01 16:35 | ED_ITS ---
HPI - Nausea/Vomiting/Diarrhea General Chief complaint: Nausea/Vomiting/Diarrhea <Corky Guillermo MD - Last Filed: 06/01/25 18:57> Stated complaint: diarrhea and weakness <Corky Guillermo MD - Last Filed: 06/01/25 18:57> Time Seen by Provider: 06/01/25 13:16 <Corky Guillermo MD - Last Filed: 06/01/25 18:57> History of Present Illness HPI Narrative: 79-year-old with a history of atrial fibrillation on Eliquis, aortic stenosis, hypertension was brought in from home by ambulance with a complains of marked weakness associated with diarrhea for last 10 days. Patient states that she ate lunch at [employer] about 10 days ago ,following day she started to have diarrrhea , pt states she has multiple episodes aday , denies any nausea or vomiting .Denies any fever .has occasional blood per rectum . Feel weak today . No recent anitbiotic use. <Corky Guillermo MD - Last Filed: 06/01/25 18:57> MD elicited complaint: diarrhea <Corky Guillermo MD - Last Filed: 06/01/25 18:57> Onset (ago): day(s) (10) <Corky Guillermo MD - Last Filed: 06/01/25 18:57> Description of vomiting: watery <Corky Guillermo MD - Last Filed: 06/01/25 18:57> Description of diarrhea: watery <Corky Guillermo MD - Last Filed: 06/01/25 18:57> Associated nausea: No <MD Navarro Honeycutt Last Filed: 06/01/25 18:57> Associated abdominal pain: No <MD Navarro Honeycutt Last Filed: 06/01/25 18:57> Location of pain: diffuse <MD Navarro Honeycutt Last Filed: 06/01/25 18:57> Radiation: diffuse <MD Navarro Honeycutt Last Filed: 06/01/25 18:57> Pain consistency: constant <MD Navarro Honeycutt Last Filed: 06/01/25 18:57> Severity: moderate <MD Navarro Honeycutt Last Filed: 06/01/25 18:57> Quality: aching <Corky Guillermo MD - Last Filed: 06/01/25 18:57> Exacerbating factors: none <Corky Guillermo MD - Last Filed: 06/01/25 18:57> Relieving factors: none <Corky Guillermo MD - Last Filed: 06/01/25 18:57> Context: possible food poisoning <Corky Guillermo MD - Last Filed: 06/01/25 18:57> Associated symptoms: weakness <Corky Guillermo MD - Last Filed: 06/01/25 18:57> Related Data Home medications: Home Medications ?Medication ?Instructions ?Recorded ?Confirmed ?Last Taken ?Type metoprolol succinate 100 mg 100 mg PO DAILY 09/14/23 1 Unknown History tablet,extended release 24 hr amiodarone 200 mg tablet 200 mg .Route DAILY 06/20/24 05/31/25 Unknown History empagliflozin 10 mg tablet 10 mg PO DAILY 06/20/2405/17 Unknown History (Jardiance) spironolactone 25 mg tablet 12.5 mg PO DAILY 06/20/24 05/31/25 Unknown History vitamin E (dl, acetate) 180 mg 180 mg PO DAILY 4 05/31/25 Unknown History (400 unit) capsule furosemide 20 mg tablet (Lasix) 20 mg PO .COMPLEX 11/2205/31/25 Unknown History <Corky Guillermo MD - Last Filed: 06/01/25 18:57> Allergies/Adverse reactions: Allergies Allergy/AdvReac Type Severity Reaction Status Date / Time metronidazole (Flagyl) Allergy Intermediate Loss of Verified 05/31/25 14:04 Consciousness Penicillins Allergy Intermediate Difficulty Verified 05/31/25 14:04 Breathing <Corky Guillermo MD - Last Filed: 06/01/25 18:57> Review of Systems 2 Review of Systems: All systems reviewed & are unremarkable except as noted in HPI and below <Corky Guillermo MD - Last Filed: 06/01/25 18:57> Constitutional: Constitutional: Reports no additional constitutional complaints <Corky Guillermo MD - Last Filed: 06/01/25 18:57> Eyes: Eyes: Reports no additional eye complaints <Corky Guillermo MD - Last Filed: 06/01/25 18:57> ENT: Reports system reviewed and no additional complaints, except as documented <Corky Guillermo MD - Last Filed: 06/01/25 18:57> Cardiovascular: Cardiovascular: Reports no additional cardiovascular complaints <Corky Guillermo MD - Last Filed: 06/01/25 18:57> Respiratory: Respiratory: Reports no additional respiratory complaints < Corky Guillermo MD - Last Filed: 06/01/25 18:57> Gastrointestinal: Gastrointestinal: Reports as per HPI <Corky Guillermo MD - Last Filed: 06/01/25 18:57> Genitourinary: Genitourinary: Reports no additional female genitourinary complaints <Corky Guillermo MD - Last Filed: 06/01/25 18:57> Musculoskeletal: Musculoskeletal: Reports no additional musculoskeletal complaints <Corky Guillermo MD - Last Filed: 06/01/25 18:57> Integumentary/Breasts: Skin/Breast: Reports system reviewed and no additional complaints, except as docu <Corky Guillermo MD - Last Filed: 06/01/25 18:57> Neurologic: Reports system reviewed and no additional complaints, except as documented <Corky Guillermo MD - Last Filed: 06/01/25 18:57> Endocrine: Endocrine: Reports no additional endocrine complaints <Corky Guillermo MD - Last Filed: 06/01/25 18:57> [facility] Past Medical History Medical History: Medical History Chronic kidney disease, stage 3a Chronic anticoagulation Right carotid bruit (06/2020) Carotid Doppler ultrasounds showed no evident plaque or stenosis in the bilateral internal carotid arteries. Hypertension Osteoarthritis Paroxysmal atrial fibrillation <Corky Guillermo MD - Last Filed: 06/01/25 18:57> Surgical History Surgical History: Surgical History History of tonsillectomy and adenoidectomy History of cardiac catheterization (06/2020) No significant coronary artery disease. No significant aortic valve stenosis. History of dilation and curettage <Corky Guillermo MD - Last Filed: 06/01/25 18:57> Family History Family History: Family History Father Morbid obesity Surgical complication It sounds as though her father had either an ERCP or cholecystectomy and had complications thereafter in which he . <Corky Guillermo MD - Last Filed: 06/01/25 18:57> Social History Social History: Social History Social History: Surrogate decision maker: Kelton Kenny, son. Emergency contact: Aleksandra Godinez, friend. Code status: Full code. Smoking status: Never smoker Second hand tobacco smoke exposure: No Alcohol intake: never Substance use: never Substance use type: does not use Do You Feel Safe in your Home?: Yes Lack of Transportation: No Lack of Food: Never True Current Housing: I Have Housing Concerned About Future Housing: No Difficulty Paying Gas/Electric Bills: No Difficulty Paying for Meds: No Currently Unemployed: No Education: Associate Degree Difficulty w/ Childcare or Family Care: No Living arrangements: alone Additional living arrangements comments: Resides in [place] with her 2 small dogs. She is originally from [place] and has 3 children, a son on the [facility], a son in [place], and a daughter who lives in the region. 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 Gender identity (if verbalized by the patient): Female Spiritual care concerns: No <Corky Guillermo MD - Last Filed: 06/01/25 18:57> Exam 2 Narrative: GENERAL: Well-appearing, well-nourished, and in no acute distress. HEAD: Normocephalic, atraumatic. EYES: PERRLA and EOMI. ENT: Nares clear, no rhinorrhea or epistaxis. Mucous membranes moist. NECK: Supple. CHEST: Clear to auscultation. No respiratory distress. HEART: Regular rate and rhythm. No murmur heard. Normal peripheral pulses. ABDOMEN: Soft, mild tender lower abd, nondistended, normal active bowel sounds. EXTREMITIES: Normal range of motion. No edema. SKIN: Warm, dry, no rash. NEURO: No focal deficits. Alert and oriented x3. PSYCH: Normal mood and affect. <Corky Guillermo MD - Last Filed: 06/01/25 18:57> Course Course Emergency Course: notified patient about the lab work, CT findings. Will transfer to [facility] for surgical consult. Meanwhile I started on cefepime.Discussed with Dr. Valdivia at [facility] will not be able to accept the pt as they do not have IR . <Corky Guillermo MD - Last Filed: 06/01/25 18:57> notified patient about the lab work, CT findings. Will transfer to [facility] for surgical consult. Meanwhile I started on cefepime.Discussed with Dr. Valdivia at [facility] will not be able to accept the pt as they do not have IR . Called [facility] who agreed to accept the patient. Patient has been accepted by <Hi Rob MD - Last Filed: 06/01/25 20:13> Vital Signs Vital signs: Vital Signs Temperature 36.4 C 06/01/25 13:11 Pulse Rate 75 06/01/25 13:11 Respiratory Rate 16 06/01/25 13:11 Blood Pressure 116/45 L 06/01/25 13:11 Pulse Oximetry 99 06/01/25 13:11 Oxygen Delivery Room Air 06/01/25 13:11 Temperature 36.7 C 06/01/25 14:17 Pulse Rate 74 06/01/25 18:47 Respiratory Rate 20 06/01/25 18:47 Blood Pressure 109/51 L 06/01/25 18:46 Pulse Oximetry 98 06/01/25 18:47 Oxygen Delivery Room Air 06/01/25 18:47 <Corky Guillermo MD - Last Filed: 06/01/25 18:57> Vital Signs Temperature 36.4 C 06/01/25 13:11 Pulse Rate 75 06/01/25 13:11 Respiratory Rate 16 06/01/25 13:11 Blood Pressure 116/45 L 06/01/25 13:11 Pulse Oximetry 99 06/01/25 13:11 Oxygen Delivery Room Air 06/01/25 13:11 Temperature 36.7 C 06/01/25 14:17 Pulse Rate 74 06/01/25 18:47 Respiratory Rate 20 06/01/25 18:47 Blood Pressure 109/51 L 06/01/25 18:46 Pulse Oximetry 98 06/01/25 18:47 Oxygen Delivery Room Air 06/01/25 18:47 <Hi Rob MD - Last Filed: 06/01/25 20:13> MDM - Nausea/Vomiting/Diarrhea MDM Narrative Medical decision making narrative: perforated sigmoid diverticulum with abscess diarrhea-- negative for C diff CKD with a BUN/creatinine of 32/1.7. atrial fibrillation. Patient is on Eliquis. <Hi Rob MD - Last Filed: 06/01/25 20:13> Differential Diagnosis Differential diagnosis: Likely gastroenteritis <Hi Rob MD - Last Filed: 06/01/25 20:13> Medical Records Attestation: I reviewed the patient's medical records. <Hi Rob MD - Last Filed: 06/01/25 20:13> Lab Data Attestation: I reviewed the patient's lab results. <Hi Rob MD - Last Filed: 06/01/25 20:13> Result diagrams: 06/01/25 13:31 06/01/25 13:31 <Corky Guillermo MD - Last Filed: 06/01/25 18:57> Labs: Lab Results 06/01/25 06/01/25 Range/Units 13:31 14:39 WBC 14.9 H (4.8-10.8) K/mm3 RBC 3.69 L (4.20-5.40) M/mm3 Hgb 10.9 L (11.7-13.8) g/dL Hct 34.3 L (35.0-42.0) % MCV 93.0 (78.0-102.0) fL MCH 29.5 (27.0-31.0) pg MCHC 31.8 L (32-36) g/dL RDW 14.3 (11.6-14.4) % Plt Count 368 (150-420) K/mm3 MPV 10.2 (9.2-11.8) fl Immature Gran % (Auto) 1.2 H (0.0-0.0) % Neut % (Auto) 83.7 H (50.0-70.0) % Lymph % (Auto) 5.7 L (18.0-42.0) % Roseau % (Auto) 8.6 (2.0-11.0) % Eos % (Auto) 0.4 L (1.0-6.0) % Baso % (Auto) 0.4 (0.0-1.0) % Lymph # (Auto) 0.84 L (1.10-4.50) K/mm3 Roseau # (Auto) 1.28 H (0.10-0.90) K/mm3 Eos # (Auto) 0.06 (0.02-0.50) K/mm3 Baso # (Auto) 0.06 (0.00-0.10) K/mm3 Abs Immat Gran (auto) 0.18 H (0.00-0.00) K/mm3 Absolute Neuts (auto) 12.44 H (1.70-7.20) K/mm3 Absolute Nucleated RBC 0.00 (0.00-0.00) K/mm3 Nucleated RBC % 0.0 (0-0.0) % PT 15.0 H (9.50-12.1) Seconds INR 1.4 Sodium 133 L (137-145) mmol/L Potassium 4.1 (3.4-5.0) mmol/L Chloride 101 (98-107) mmol/L Carbon Dioxide 22 (22-30) mmol/L Anion Gap 10 (4-12) mmol/L BUN 32 H (7-17) mg/dL Creatinine 1.74 H (0.7-1.0) mg/dL Estim Creat Clear Calc 25 ml/min Estimated GFR 28 L (59 - ) Glucose 113 H (65-110) mg/dL Calculated Osmolality 283 L (285-295) mOsm/kg Lactic Acid 1.2 (0.4-2.0) mmol/L Calcium 8.4 (8.4-10.2) mg/dL Total Bilirubin 0.6 (0.2-1.3) mg/dL AST 42 H (14-36) U/L ALT 28 (6-35) U/L Alkaline Phosphatase 104 (38-126) U/L Total Protein 5.8 L (6.3-8.2) g/dL Albumin 3.0 L (3.5-5.1) g/dL Lipase 39 (23-300) U/L C. difficile (PCR) Negative (NEGATIVE) <Corky Guillermo MD - Last Filed: 06/01/25 18:57> Lab Results 06/01/25 06/01/25 Range/Units 13:31 14:39 WBC 14.9 H (4.8-10.8) K/mm3 RBC 3.69 L (4.20-5.40) M/mm3 Hgb 10.9 L (11.7-13.8) g/dL Hct 34.3 L (35.0-42.0) % MCV 93.0 (78.0-102.0) fL MCH 29.5 (27.0-31.0) pg MCHC 31.8 L (32-36) g/dL RDW 14.3 (11.6-14.4) % Plt Count 368 (150-420) K/mm3 MPV 10.2 (9.2-11.8) fl Immature Gran % (Auto) 1.2 H (0.0-0.0) % Neut % (Auto) 83.7 H (50.0-70.0) % Lymph % (Auto) 5.7 L (18.0-42.0) % Roseau % (Auto) 8.6 (2.0-11.0) % Eos % (Auto) 0.4 L (1.0-6.0) % Baso % (Auto) 0.4 (0.0-1.0) % Lymph # (Auto) 0.84 L (1.10-4.50) K/mm3 Roseau # (Auto) 1.28 H (0.10-0.90) K/mm3 Eos # (Auto) 0.06 (0.02-0.50) K/mm3 Baso # (Auto) 0.06 (0.00-0.10) K/mm3 Abs Immat Gran (auto) 0.18 H (0.00-0.00) K/mm3 Absolute Neuts (auto) 12.44 H (1.70-7.20) K/mm3 Absolute Nucleated RBC 0.00 (0.00-0.00) K/mm3 Nucleated RBC % 0.0 (0-0.0) % PT 15.0 H (9.50-12.1) Seconds INR 1.4 Sodium 133 L (137-145) mmol/L Potassium 4.1 (3.4-5.0) mmol/L Chloride 101 (98-107) mmol/L Carbon Dioxide 22 (22-30) mmol/L Anion Gap 10 (4-12) mmol/L BUN 32 H (7-17) mg/dL Creatinine 1.74 H (0.7-1.0) mg/dL Estim Creat Clear Calc 25 ml/min Estimated GFR 28 L (59 - ) Glucose 113 H (65-110) mg/dL Calculated Osmolality 283 L (285-295) mOsm/kg Lactic Acid 1.2 (0.4-2.0) mmol/L Calcium 8.4 (8.4-10.2) mg/dL Total Bilirubin 0.6 (0.2-1.3) mg/dL AST 42 H (14-36) U/L ALT 28 (6-35) U/L Alkaline Phosphatase 104 (38-126) U/L Total Protein 5.8 L (6.3-8.2) g/dL Albumin 3.0 L (3.5-5.1) g/dL Lipase 39 (23-300) U/L C. difficile (PCR) Negative (NEGATIVE) <Hi Rob MD - Last Filed: 06/01/25 20:13> Critical Care Time Critical Care Time Total Critical Care Time: 45 <Corky Guillermo MD - Last Filed: 06/01/25 18:57> Discharge Plan Discharge Clinical Impression: CKD (chronic kidney disease) stage 4, GFR 15-29 ml/min, Perforation of sigmoid colon due to diverticulitis, Abscess of pelvis <Corky Guillermo MD - Last Filed: 06/01/25 18:57> Patient Disposition: Acute Care Hospital <Corky Guillermo MD - Last Filed: 06/01/25 18:57> Condition: Stable <Corky Guillermo MD - Last Filed: 06/01/25 18:57> Additional Instructions: transfer patient to [facility]. Patient has been accepted by surgeon Dr. Zhang <Corky Guillermo MD - Last Filed: 06/01/25 18:57> Patient Language: Luxembourgish <Corky Guillermo MD - Last Filed: 06/01/25 18:57> Prescriptions: No Action amiodarone 200 mg tablet 200 mg .ROUTE DAILY Rx Instructions: 200 mg daily; Jardiance 10 mg tablet 10 mg PO DAILY spironolactone 25 mg tablet 12.5 mg PO DAILY vitamin E (dl, acetate) 180 mg (400 unit) capsule 180 mg PO DAILY furosemide [Lasix] 20 mg tablet 20 mg PO .COMPLEX Rx Instructions: 20 mg orally every other day; metoprolol succinate 100 mg tablet extended release 24 hr 100 mg PO DAILY irbesartan 150 mg tablet 150 mg PO DAILY Qty: 90 3RF Eliquis 5 mg tablet 5 mg PO Q12HR Qty: 60 0RF losartan 100 mg tablet See Rx Instructions .ROUTE .COMPLEX Qty: 90 3RF Dose Instruction: TAKE 1 TABLET BY MOUTH EVERY DAY Rx Instructions: TAKE 1 TABLET BY MOUTH EVERY DAY <Corky Guillermo MD - Last Filed: 06/01/25 18:57> Follow-up/Referrals: Kingsley Augustin DO [Primary Care Provider, Family Practice] <Corky Guillermo MD - Last Filed: 06/01/25 18:57> Time of Disposition: 20:12 <Corky Guillermo MD - Last Filed: 06/01/25 18:57> 20:12 <Hi Rob MD - Last Filed: 06/01/25 20:13>
--- NOTE | 2025-06-01 19:15 | PC.NURSE ---
Report received, spoke to pt and she would like to try transfer to [facility] as her other cardiac specialists are there. Explained transfer process to pt and need for IR specialist w/ her dx. Pt stated understanding. Pt assisted w/ SBA to BSC to urinate and had small diarrhea w/ urination. Pt assisted back to bed, repositioned and IVF infusing as per order.
[2025-06-01] MEDS: levoFLOXacin 500 MG/D5W 100 ML 500 MG/100 ML BAG 100 MG IVPB (20:14)
--- NOTE | 2025-06-01 20:29 | PC.NURSE ---
Pt resting, VSS, informed on transfer to [facility], report given, paperwork signed
== END 2025-06-01 20:51 | disposition short-term general hospital (02) ==
PROVIDERS: Emergency Provider Family Medicine; PCP Family Medicine
DX: I12.9 Hypertensive chronic kidney disease with stage 1 through stage 4 chronic kidney disease, or unspecified chronic kidney disease (principal); N18.4 Chronic kidney disease, stage 4 (severe); K57.20 Diverticulitis of large intestine with perforation and abscess without bleeding; N73.9 Female pelvic inflammatory disease, unspecified; I48.0 Paroxysmal atrial fibrillation; Z79.899 Other long term (current) drug therapy; Z79.01 Long term (current) use of anticoagulants
CPT/HCPCS: 36415; 74176; 80053; 83605; 83690; 85025; 85610; 87045; 87046; 87427; 87493; 96361; 96365; 96367; 99285; J0692; J1956; J7030

== ENCOUNTER 2025-06-01 15:43 | Outpatient (NON) | payer MEDICARE, SELFPAY | END 2025-06-01 15:44 | disposition home or self-care (01) | PROVIDERS: Visit Provider Nurse Practitioner Family | DX: R19.7 Diarrhea, unspecified (principal) | CPT/HCPCS: 87045; 87046; 87427 ==

== ENCOUNTER 2025-06-07 11:58 | Outpatient (CLI) | payer MEDICARE, SELFPAY ==
[2025-06-07 12:21] LABS: Hematocrit 37.4 % (35.0-42.0); Hemoglobin 11.6 g/dL (11.7-13.8); Immature Granulocyte Percent A 2.1 % (0.0-0.0); Lymphocytes Absolute Auto 1.14 K/mm3 (1.10-4.50); Mean Corpuscular HGB Conc 31.0 g/dL (32-36); Mean Corpuscular Hemoglobin 29.6 pg (27.0-31.0); Mean Corpuscular Volume 95.4 fL (78.0-102.0); Nucleated Red Blood Cells Absolute Auto 0.00 K/mm3 (0.00-0.00); Nucleated Red Blood Cells Perc 0.0 % (0-0.0); Platelet Count Result 364 K/mm3 (150-420); Red Blood Count 3.92 M/mm3 (4.20-5.40); White Blood Count 10.3 K/mm3 (4.8-10.8)
[2025-06-07 12:33] LABS: Total Protein Urine Random 38 mg/dL; Ur Ttl Prot Creatinine Ratio 0.46 mg/mg (0-0.20)
[2025-06-07 12:54] LABS: Alanine Aminotransferase 25 U/L (6-35); Albumin Level 3.0 g/dL (3.5-5.1); Alkaline Phosphatase 105 U/L (38-126); Anion Gap 6 mmol/L (4-12); Aspartate Amino Transferase 35 U/L (14-36); Bilirubin,Total 0.4 mg/dL (0.2-1.3); Blood Urea Nitrogen 9 mg/dL (7-17); Calcium 8.8 mg/dL (8.4-10.2); Carbon Dioxide 29 mmol/L (22-30); Chloride 105 mmol/L (98-107); Estimated Glomerular Filt Rate 52; Glucose 127 mg/dL (65-110); Osmolality Calculated 290 mOsm/kg (285-295); Potassium 4.3 mmol/L (3.4-5.0); Sodium 140 mmol/L (137-145); Total Protein 5.8 g/dL (6.3-8.2)
--- OUTSIDE RECORDS SUMMARY | 2025-06-07 13:51 | XMS_ITS | Encounter Summary ---
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
--- OUTSIDE RECORDS SUMMARY | 2025-06-07 13:51 | XMS_ITS | Encounter Summary ---
Author Organization [facility] Healthcare Address [address] [place] [address] Care Team Providers Care Hydrology Professor Name Role Phone Kingsley Augustin DO Primary Care Provider Encounter Details Date Type Department Care Team (Late st Contact Info) Description 07/15/2020 Orders Only [facility] Health Information Management [address] [place] [id number] Scanning, Provider Social History Tobacco Use Types Packs/Day Years Used Date Smoking Tobacco: Never Comments Unknown Sex and Gender Information Value Date Recorded Sex Assigned at Not on file 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 Gender Identity Not on file Sexual Orientation Not on file documented as of this encounter Plan of Treatment Not on file documented as of this encounter Procedures Procedure Name Priority Date/Time Associated Diagnosis Comments CARDIOLOGY DOCUMENT SCAN 07/15/2020 documented in this encounter Results * Cardiology Document Scan (07/15/2020) Anatomical Region Laterality Modality Other us Provider Scanning CV CARDIAC SERVICES PROCEDURES Final Result documented in this encounter Visit Diagnoses Not on filedocumented in this encounter Care Teams Hydrology Professor Relationship Specialty Start Date End Date Kingsley Augustin DO [address] [place] [address] PCP - General Family Medicine 07/08/20 documented as of this encounter
--- OUTSIDE RECORDS SUMMARY | 2025-06-07 13:51 | XMS_ITS | Clinical Summary ---
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 Gender Identity Not on file Sexual Orientation Not on file Last Filed Vital Signs Vital Sign Reading Time Taken Comments Blood Pressure 159/74 10/13/2023 10:45 AM VERIFYING MACHINE OPERATOR Pulse 61 10/13/2023 10:45 AM VERIFYING MACHINE OPERATOR Temperature 36.1 C (97 F) 10/13/2023 10:45 AM VERIFYING MACHINE OPERATOR Respiratory Rate 18 10/13/2023 10:45 AM VERIFYING MACHINE OPERATOR Oxygen Saturation 98% 10/13/2023 10:45 AM VERIFYING MACHINE OPERATOR Inhaled Oxygen Concentration - - Weight 93.4 kg (206 lb) 10/06/2023 11:23 AM VERIFYING MACHINE OPERATOR Height 154.9 cm (5' 1) 10/06/2023 11:23 AM VERIFYING MACHINE OPERATOR Body Mass Index 38.92 10/06/2023 11:23 AM VERIFYING MACHINE OPERATOR Plan of Treatment Health Maintenance Due Date Last Done Comments Hepatitis C 1963 DTaP, Tdap and Td Vaccines (1 - Tdap) 1965 Pneumococcal Vaccine: 50+ Years (1 of 1 - PCV) 1996 Zoster Vaccines (1 of 2) 1996 Annual Medicare Wellness Visit 2011 Dexa Scan (General) 2011 COVID-19 Vaccine ( season) 2025 06/12/2023, 05/11/2022, 01/12/2022, Additional history exists Influenza Adult (#1) 2025 RSV Immunization or 60+ Years Completed 06/16/2023 Hepatitis A Vaccines Aged Out No long er eligible based on patient's age to complete this topic Meningococcal B Vaccine Aged Out No l onger eligible based on patient's age to complete this topic Meningococcal Vaccine Aged Out No terri odette eligible based on patient's age to complete this topic RSV Immunizations Under 20 Months Aged Out No longer eligible based on patient's age to complete this topic Medical Devices Implanted Type Area Cutting Torch Operator Device Identifier Shelf Expiration Date Model / Serial / Lot Nathalie Implanted:Qty: 1 on 07/07/2023 by Mylene Mckeon MD at [facility] Right: Eye [employer] [id number] 11/29/2025 [id number] / [id number] / [id number] Nathalie Rudd Implanted:Qty: 1 on 10/13/2023 by Mylene Mckeon MD at [facility] Left: Eye [id number] 12/12/2025 [id number] / [id number] / [id number] Insurance MEDICARE [facility] Care Teams Online Education Manager Relationship Specialty Start Date End Date Kingsley Augustin DO [address] [place] [address] PCP - General FAMILY PRACTICE 07/05/23
--- OUTSIDE RECORDS SUMMARY | 2025-06-07 13:51 | XMS_ITS | Clinical Summary ---
Author Organization [facility] Kaila sibley Anton[facility]asharp [facility] Address [address] [place] [address] Care Team Providers Care Film Reader Name Role Phone Kingsley Augustin DO Primary Care Provider [phone] Allergies Active Allergy Reactions Criticality Noted Date Comments Metronidazole Dizziness Low 10/19/2022 Penicillins Shortness of Breath/Wheezing High 2022 Poison Muna Extract Rash Low 10/19/2022 Medications amiodarone (CORDARONE) 200 mg tablet Take 200 mg by mouth daily. 09/15/2022 Active metoprolol succinate (TOPROL XL) 100 mg Extended Release 24 hour tablet Take 100 mg by mouth daily. 09/15/2022 Active apixaban (Eliquis) 5 mg tablet Take 1 Tablet by mouth every 12 hours. 06/08/2022 Active Jardiance 10 mg tablet Take 10 mg by mouth daily. Active vitamin E 1,000 unit Capsule Take 1,000 Units by mouth daily. Active irbesartan (AVAPRO) 150 mg tablet Take 150 mg by mouth daily. 12/19/2024 Active spironolactone (ALDACTONE) 25 mg tablet Take 12.5 mg by mouth daily. Active furosemide (LASIX) 20 mg tablet Take 20 mg by mouth every other day. Active benzonatate (TESSALON) 200 mg capsule Take 1 Capsule (200 mg) by mouth 3 times daily as needed for Cough. 30 Capsule 06/05/2025 1:19 PM CDT 06/05/2025 Active guaiFENesin (ROBITUSSIN) 100 mg/5 mL solution Take 10 mL (200 mg) by mouth every 4 hours as needed for Cough. 118 mL 06/05/2025 1:19 PM CDT 06/05/2025 Active saccharomyces boulardii (FLORASTOR) 250 mg Capsule Take 1 Capsule (250 mg) by mouth 2 times daily for 10 days. 20 Capsule 06/05/2025 1:19 PM CDT 06/05/2025 Active ciprofloxacin HCl (CIPRO) 500 mg tablet Take 1 Tablet (500 mg) by mouth 2 times daily for 7 days. 14 Tablet 06/05/2025 1:19 PM CDT 06/05/2025 Active Active Problems Problem Noted Date Diagnosed Date Rhinovirus infection 06/05/2025 Diverticulitis of intestine with perforation and abscess 06/02/2025 History of atrial fibrillation 06/02/2025 Diastolic CHF, chronic 06/02/2025 Aortic stenosis 06/02/2025 Hypertension 06/02/2025 CKD (chronic kidney disease) 06/02/2025 Diverticulitis of large intestine with abscess 1 Encounters Date Type Department Care Team Description 06/05/2025 External Device Data STL ABSTRACTION Provider, Abstract 06/05/2025 External Device Data STL ABSTRACTION Provider, Abstract 06/05/2025 External Device Data STL ABSTRACTION Provider, Abstract 06/01/2025 10:00 PM CDT - 06/05/2025 2:48 PM CDT Hospital Encounter [address] [place] [id number] Bandar Zhang MD Demeo, Amanda, MD Hawatmeh, Shady, MD Ye, Musi, MD Pettis, Matthew, MD Diverticulitis of intestine with perforation and abscess Discharge Disposition: Home or Self Care 06/01/2025 Travel 04/24/2025 External Device Data STL ABSTRACTION Provider, Abstract 04/10/2025 External Device Data STL ABSTRACTION Provider, Abstract 03/28/2025 External Device Data STL ABSTRACTION Provider, Abstract 03/07/2025 10:15 AM CDT Office Visit [facility] Oncology and Hematology - Jax[address] [place] [id number] Ervin Huerta MD MGUS (monoclonal gammopathy of unknown significance) (Primary Dx) 03/07/2025 External Device Data STL ABSTRACTION Provider, Abstract 03/07/2025 External Device Data STL ABSTRACTION Provider, Abstract 03/07/2025 External Device Data STL ABSTRACTION Provider, Abstract [...] drink = 0.6 oz pur e alcohol) Food Insecurity Answer Date Recorded Do you find you are eating l ess than you should because you can t pay for food? No 06/01/2025 Transportation Needs Answer Date Record ed Have you gone without health care because you didn t have a way to get there? Or worry about transportation for future doctor visits, pickling grader medication, etc.? No 2024 Housing Stability Answer Date Recorded Do you worry you won t have a steady place to sleep or struggle to pay rent or mortgage? No 06/01/2025 Utility Needs Answer Date Recorded Do you have difficulty payin g for utility costs (electric, water or gas bills)? No 06/01/2025 Medication Needs Answer Date Recorded Have you skipped taking medi cation due to cost or worry you can t afford new medications? No 06/01/2025 Feeling Safe Answer Date Recorded Are you in a relationship wi th someone who hurts you emotionally and/or physically? 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 Gender Identity Not on file Sexual Orientation Not on file Last Filed Vital Signs Vital Sign Reading Time Taken Comments Blood Pressure 94/54 06/05/2025 5:21 AM CDT nurse informed Pulse 70 06/05/2025 5:21 AM CDT Temperature 36.3 C (97.4 F) 06/05/2025 5:21 AM CDT Respiratory Rate 17 06/05/2025 5:21 AM CDT Oxygen Saturation 98% 06/05/2025 5:2 1 AM CDT Inhaled Oxygen Concentration - - Weight 87.3 kg (192 lb 6.4 oz) 06/02/2025 2:03 AM CDT Height 154.9 cm (5' 1) 06/02/2025 2:03 AM CDT Body Mass Index 36.35 06/02/2025 2:03 AM CDT Plan of Treatment Upcoming Encounters Date Type Department Care Team (Late st Contact Info) Description 03/07/2026 10:00 AM CDT Office Visit [facility] Oncology and Hematology - Jaxson [address] [facility] [address] [place] [address] Ervin Huerta MD [address] [facility] [address] [place] [address] Health Maintenance Due Date Last Done Comments DTAP/TDAP/TD VACCINES (1 - Tdap) 1965 PNEUMOCOCCAL VACCINE 50+ YEARS (1 of 2 - PCV) 07/26/19 65 ZOSTER VACCINE (1 of 2) 1996 OSTEOPOROSIS SCREENING 2011 RSV VACCINE (60+ or ) (1 - 1-dose 75+ series) 2021 INFLUENZA VACCINE (#1) 2025 Procedures Procedure Name Priority Date/Time Associated Diagnosis Comments RESPIRATORY PATHOGEN PCR PANEL Pending Discharge 06/05/2025 8:49 AM CDT MAGNESIUM LEVEL Routine 06/05/2025 5:43 AM CDT BASIC METABOLIC PANEL Routine 06/05/2025 5:43 AM CDT CBC WITHOUT DIFFERENTIAL Routine 06/05/2025 5:43 AM CDT BASIC METABOLIC PANEL Routine 06/04/2025 9:50 AM CDT CBC WITHOUT DIFFERENTIAL Routine 06/04/2025 9:50 AM CDT BASIC METABOLIC PANEL Routine 06/03/2025 1:53 PM CDT CBC WITHOUT DIFFERENTIAL Routine 06/03/2025 1:53 PM CDT EKG 12-LEAD Routine 06/02/2025 12:31 PM CDT TYPE AND SCREEN Stat 06/01/2025 10:16 PM CDT ALBUMIN LEVEL Routine 06/01/2025 10:16 PM CDT BASIC METABOLIC PANEL Routine 06/01/2025 10:16 PM CDT CBC WITHOUT DIFFERENTIAL Routine 06/01/2025 10:16 PM CDT EXTRA TUBE (BLUE) Stat 06/01/2025 10: 16 PM CDT EXTRA TUBE (LAV) Stat 06/01/2025 10:1 6 PM CDT EXTRA TUBE (LAV) Stat 06/01/2025 10:1 6 PM CDT EXTRA TUBE (GREEN) Stat 06/01/2025 10 :16 PM CDT EXTRA TUBE Stat 06/01/2025 10:16 PM CDT from Last 3 Months Results * (ABNORMAL) RESPIRATORY PATHOGEN PCR PANEL (06/05/2025 8:49 AM CDT) [facility] COVID-19 PCR NOT DETECTED Not Detected 06/05/20 25 10:11 AM CDT [facility] Human Rhinovirus/En terovirus by PCR DETECTED(A) Not Detected 06/05/2025 10:11 AM CDT [facility] Upper Respiratory ENTIRE NASOPHARYNX / Unknown Collection / Unknown 06/05/2025 8:49 AM CDT 06/05/2025 8:53 AM CDT [facility] - 06/05/2025 10:11 AM CDT The Film Array Respiratory Panel (RP2.1) is a multiplex nucleic acid detection test for 22 targets. Viruses: Adenovirus Coronavirus HKU1, NL63, 229E, and OC43 COVID-19/Severe Acute Respiratory Syndrome Coronavirus 2 Influenza A with the following subtypes: H1, H1-2009, and H3 Influenza B Human Metapneumovirus Parainfluenza virus 1, 2, 3, and 4 Respiratory Syncytial virus (RSV) Rhinovirus/Enterovirus (cannot differentiate due to genetic similarities) Bacteria: Bordetella pertussis Bordetella parapertussis Chlamydophila pneumoniae Mycoplasma pneumoniae Corinna Corral NP MICROBIOLOGY - GENERAL O RDERABLES Final Result [facility] CLIA# [id number] [address] [facility] [place] [address] * (ABNORMAL) CBC WITHOUT DIFFERENTIAL (06/05/2025 5:43 AM CDT) Only the most recent of4 resultswithin the time period is included. WBC 8.6 4.0 - 9.8 K/uL 06/05/2025 6:33 AM CDT [facility] RBC 3.38(L) 3.90 - 4.90 M/uL 06/05/2025 6:33 AM CDT [facility] HEMOGLOBIN 10.1(L) 11.8 - 14.8 g/dL 06/05/2025 6:33 AM CDT [facility] HEMATOCRIT 31.6(L) 35.5 - 44.0 % 06/05/2025 6:33 AM CDT [facility] MCV 93.5 82.0 - 99.0 fL 06/05/2025 6:33 AM CDT [facility] MCH 29.9 27.2 - 32.6 pg 06/05/2025 6:33 AM CDT [facility] MCHC 32.0 31.5 - 35.5 g/dL 06/05/2025 6:33 AM CDT [facility] PLATELETS 354(H) 140 - 350 K/uL 06/05/2025 6:33 AM CDT [facility] MPV 10.0 9.3 - 12.4 fL 06/05/2025 6:33 AM CDT [facility] SERVICES - [facility] RDW 14.6(H) 11.5 - 14.5 % 06/05/2025 6:33 AM CDT [facility] - [facility] RDW-STDEV 50.3(H) 37.1 - 48.7 fL 06/05/2025 6:33 AM CDT [facility] Blood Venipuncture / Unknown 06/05/2025 5:43 AM CDT 06/05/2025 6:20 AM CDT Lynda Verdugo PA HEMATOLOGY ORDERABLES Final Resu lt [facility]# [id number] [address] [place] [address] * MAGNESIUM LEVEL (06/05/2025 5:43 AM CDT) Pathologist [facility] MAGNESIUM 2.4 1.6 - 2.4 mg/dL 06/05/2025 7:24 AM CDT [facility] Blood Venipuncture / Unknown 06/05/2025 5:43 AM CDT 06/05/2025 6:19 AM CDT Corinna Corral NP CHEMISTRY ORDERABLES Fin al Result [facility]# [id number] [address] [place] [address] * (ABNORMAL) BASIC METABOLIC PANEL (06/05/2025 5:43 AM CDT) Only the most recent of4 resultswithin the time period is included. SODIUM 137 136 - 145 mmol/L 06/05/2025 6:58 AM CDT [facility] POTASSIUM 3.4(L) 3.5 - 5.0 mmol/L 06/05/2025 6:58 AM CDT [facility] CHLORIDE 106 98 - 107 mmol/L 06/05/2025 6:58 AM [facility] CO2 24 22 - 29 mmol/L 06/05/2025 6:58 AM [facility] CALCIUM 7.9(L) 8.6 - 10.2 mg/dL 06/05/2025 6:58 AM [facility] BUN 11 8 - 23 mg/dL 06/05/2025 6:58 AM [facility] CREATININE 1.09(H) 0.51 - 0.95 mg/dL 06/05/2025 6:58 AM [facility] Comment:The GFR result is no t clinically significant on patients <18 or >70 years of age. GLUCOSE 115(H) 74 - 99 mg/dL 06/05/2025 6:58 AM [facility] GFR 52 mL/min/1.7 3 sq meter 06/05/2025 6:58 AM [facility] Comment:eGFR calculated with 2020 CKD-EPI equation. Vegetarian diet, extremely high or low muscle mass, and may affect results. Cystatin C with Glomerular Filtration Rate is a suitable alternative for these patients. ANION GAP 7(L) 8 - 16 mmol/L 06/05/2025 6:58 AM T [facility] Blood Venipuncture / Unknown 06/05/2025 5:43 AM CDT 06/05/2025 6:19 AM CDT us Lynda SANFORD CHEMISTRY ORDERABLES Final Resul t [facility] [id number] [address] [facility] [address] [address] * EKG 12-LEAD (06/02/2025 12:31 PM CDT) 06/02/2025 12:3 1 PM CDT Narrative INTERFACE SYSTEM - 06/02/2025 1:25 PM CDT [facility] [address] [place] [address] Test Date: 2025-06-02 Pat Name: ALETA KENNY Department: 41 Room: 29 Gender: F Eeg Tech: erg : 1945 Requested By: BANDAR COREAS Order Number: [id number] Reading MD: Harvey Stephens Measurements Intervals [place] Rate: 76 P: 0 MI: 208 QRS: 19 QRSD: 103 T: 37 QT: 413 QTc: 465 Interpretive Statements Sinus rhythm with first degree AVB Electronically Signed On 06-02-2025 13:25:24 CDT by Harvey Stephens Procedure Note Harvey Stephens MD - 06/02/2025 [facility] [address] [place] [address] Test Date: 2025-06-02 Pat Name: ALETA KENNY Department: 41 Room: [facility] Gender: F Eeg Tech: erg : 1945 Requested By: BANDAR COREAS Order Number: [id number] Reading MD: Harvey Stephens Measurements Intervals [place] Rate: 76 P: 0 MI: 208 QRS: 19 QRSD: 103 T: 37 QT: 413 QTc: 465 Interpretive Statements Sinus rhythm with first degree AVB Electronically Signed On 06-02-2025 13:25:24 CDT by Harvey Stephens us Lynda SANFORD ECG ORDERABLES Final Result Performing Organization Address City/[facility] Co de Phone Number INTERFACE SYSTEM Refer to clinic/hospital department * EXTRA TUBE (GREEN) (06/01/2025 10:16 PM CDT) Blood Venipuncture / Unknown 06/01/2025 10:16 PM CDT 06/01/2025 10:22 PM CDT us Protocol [facility] CHEMISTRY ORDERABLES Final Result Performing Organization Address City/[facility]/ZIP Co de Phone Number [facility] CLIA# [id number] [facility] [place] [address] [place] [address] * EXTRA TUBE (LAV) (06/01/2025 10:16 PM CDT) Only the most recent of2 resultswithin the time period is included. Blood Venipuncture / Unknown 06/01/2025 10:16 PM CDT 06/01/2025 10:22 PM CDT us Protocol [facility] MD HEMATOLOGY ORDERABLE S Final Result [facility] SERVICES [facility] CLIA# [id number] [address] [place] [address] * EXTRA TUBE (BLUE) (06/01/2025 10:16 PM CDT) Blood Venipuncture / Unknown 06/01/2025 10:16 PM CDT 06/01/2025 10:22 PM CDT us Protocol [facility] MD HEMATOLOGY ORDERABLE S Final Result Performing Organization Address [facility]/ZIP Co de Phone Number [facility] CLIA# [id number] [address] [place] [address] * TYPE AND SCREEN (06/01/2025 10:16 PM CDT) ABO GROUP B 06/01/2025 11:22 PM CDT [employer] [facility] -- [facility] RH (D) TYPE Positive 06/01/2025 11:22 PM CDT [employer] [facility] -- [facility] ANTIBODY SCREEN Negative 06/01/2025 11:22 PM CDT [employer] [facility] -- [facility] Blood Venipuncture / Unknown 06/01/2025 10:16 PM CDT 06/01/2025 10:22 PM CDT us Protocol [facility] MD BLOOD BANK ORDERABLE S Edited Result - Final [facility] -- .ADRIAN HARVEY# [id number] [address] [place] [address] * (ABNORMAL) ALBUMIN LEVEL (06/01/2025 10:16 PM CDT) ALBUMIN 2.8(L) 3.5 - 5.2 g/dL 06/02/2025 1:09 PM CDT [facility] Blood Venipuncture / Unknown 06/01/2025 10:16 PM CDT 06/01/2025 10:22 PM CDT Lynda SANFORD CHEMISTRY ORDERABLES Final [facility]ul t [facility] [employer] [facility] HARVEY# [id number] [address] [place] [address] from Last 3 Months Additional Health Concerns Infection Onset Date Last Indicated RHINO/ENTEROVIRUS (Adult) 06/05/20252024 Insurance MEDICARE PART A AND B [facility] [id number] MEDICARE PART A AND B [facility] [id number] Member Subscriber Plan / Payer (Ef fective 2024-Present) Name:Aleta Kenny Relation to Subscriber:Self Name:Aleta Kenny Payer ID:Not on file Group ID:[id number] Type:RX Medicare Part D Address: [address] RX [employer] (INTERNAL) [facility] Internal Plans Advance Directives For more information, please contact: [phone] * Full Code (Latest Code Status on File) Date Activated Date Inactivated Comments 06/02/2025 9:49 AM 06/05/2025 5:09 PM * Default Full Code - Needs Discussion Date Activated Date Inactivated Comments 06/02/2025 6:38 AM 06/02/2025 9:49 AM Care Teams Film Reader Relationship Specialty Start Date End Date Kingsley Augustin DO [address] [place] [address] PCP - General Family Practice 10/19/22
--- OUTSIDE RECORDS SUMMARY | 2025-06-07 13:51 | XMS_ITS | Encounter Summary ---
Author Organization [employer] Address 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 Gender Identity Not on file Sexual Orientation Not on file documented as of this encounter Plan of Treatment Upcoming Encounters Date Type Department Care Team (Late st Contact Info) Description 03/07/2026 10:00 AM CDT Office Visit [facility] Oncology and Hematology - Jaxson [address] [facility] [address] [place] [address] Ervin Huerta MD [address] [facility] [address] [place] [address] documented as of this encounter Visit Diagnoses Not on filedocumented in this encounter Additional Health Concerns Infection Onset Date Last Indicated Resolved Time R/O Respiratory 06/05/2025 06/05/2025 06/05/2025 1 0:11 AM CDT RHINO/ENTEROVIRUS (Adult) 06/05/2025 06/05/2025 documented as of this encounter Care Teams Unhairing Inspector Relationship Specialty Start Date End Date Kingsley Augustin DO [address] [place] [address] PCP - General Family Practice 10/19/22 documented as of this encounter
--- OUTSIDE RECORDS SUMMARY | 2025-06-07 13:51 | XMS_ITS | Clinical Summary ---
Author Organization [facility] [address] Address [address] [place] [address] Care Team Providers Care Embryology Teacher Name Role Phone Kingsley Augustin DO Primary Care Provider Allergies Active Allergy Reactions Criticality Noted Date Comments Metronidazole Syncope,Dizziness High 07/01/2020 Penicillins Shortness of breath High 07/01/2020 Poison Muna Extract Swelling,Rash Medium 07/08/2020 Medications vitamin E 1,000 unit capsule Take 1 capsule (1,000 Units total) by mouth daily Active amiodarone (PACERONE) 200 mg tablet TAKE 1 TABLET BY MOUTH EVERY DAY 90 tablet 3 5 Active irbesartan (AVAPRO) 150 mg tablet Take 1 tablet (150 mg total) by mouth daily 5 Active empagliflozin (JARDIANCE) 10 mg tablet Take 1 tablet (10 mg total) by mouth daily 90 tablet 2 5 Active furosemide (LASIX) 20 mg tablet TAKE 1 TABLET BY MOUTH EVERY DAY 90 tablet 3 5 Active metoprolol XL (TOPROL-XL) 100 mg 24 hr tablet TAKE 1 TABLET BY MOUTH EVERY DAY IN THE MORNING 90 tablet 1 5 Active Eliquis 5 mg tabletIndications :Paroxysmal atrial fibrillation (HCC) TAKE 1 TABLET BY MOUTH EVERY 12 HOURS 180 tablet 1 5 Active spironolactone (ALDACTONE) 25 mg tablet Take 0.5 tablets (12.5 mg total) by mouth daily Active spironolactone (ALDACTONE) 25 mg tablet TAKE 1 TABLET (25 MG TOTAL) BY MOUTH DAILY. 90 tablet 3 5 05/23/20 25 Discontinu ed(Patient Reported) Active Problems Problem Noted Date Diagnosed Date Chronic diastolic (congestive) heart failure halfway current use of amiodarone 07/30/2023 Paroxysmal atrial fibrillation 09/16/2020 Chronic anticoagulation 09/16/2020 Nonrheumatic aortic valve stenosis 09/16/2020 Essential hypertension 09/16/2020 False positive cardiac stress test 07/15/2020 Encounters Date Type Department Care Team Description 06/06/2025 Documentation Cardiothoracic Surgery Keara Vilchis RN 05/23/2025 10:30 AM CDT Office Visit [facility] Cardiology [address] [facility] [address] [place] [phone] Raymond Garcia MD Nonrheumatic aortic valve stenosis (Primary Dx); Chronic diastolic congestive heart failure (HCC); Paroxysmal atrial fibrillation (HCC); halfway current use of amiodarone; Chronic anticoagulation; Essential hypertension 04/25/2025 10:07 AM CDT - 04/25/2025 11:59 PM CDT Hospital Encounter [facility] Imaging and Radiology [address] [place], [place] [id number] Nonrheumatic aortic valve stenosis Discharge Disposition: Discharge to home or self care 04/13/2025 Orders Only Cardiology Raymond Garcia MD 04/10/2025 Cardiology Conference [facility] Non-invasive Cardiac Diagnostic Testing [address] [place], [place] [id number] Drew Clayton RN Nonrheumatic aortic valve stenosis (Primary Dx) 04/03/2025 Results Follow-Up [facility] Cardiology [address] [facility] [address] [place] [phone] Raymond Garcia MD Transthoracic Echo (TTE) Complete W Doppler/CF 03/28/2025 10:15 AM CDT Ancillary Procedure [facility] Cardiology [address] [facility] [address] [place] [phone] Nonrheumatic aortic valve stenosis from Last 3 Months Surgical History Surgery [...] 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 Family History Relation Name Status Comments Father [...] on file 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 Gender Identity Not on file Sexual Orientation Not on file Obstetrics History Last Filed Vital Signs Vital Sign Reading Time Taken Comments Blood Pressure 128/76 05/23/2025 11:05 AM CDT Pulse 80 05/23/2025 11:05 AM CDT Temperature 36.3 C (97.3 F) 04/13/2024 5:00 PM CDT Respiratory Rate 16 04/13/2024 5:25 PM CDT Oxygen Saturation 96% 05/23/2025 11:05 AM CDT Inhaled Oxygen Concentration - - Weight 97.7 kg (215 lb 6.4 oz) 05/23/2025 11:05 AM CDT Height 154.9 cm (5' 1) 05/23/2025 11:05 AM CDT Body Mass Index 40.7 05/23/2025 11:05 AM CDT Plan of Treatment Health Maintenance Due Date Last Done Comments Depression Screening 1945 Hepatitis C Screening 1945 Osteoporosis Screening-Bone Density Scan 1945 DTaP/Tdap/Td Vaccine (1 - Tdap) 1957 Hepatitis B Screening 1964 Pneumococcal vaccine 65+ (1 of 2 - PCV) 1965 Zoster Vaccine (1 of 2) 1996 Well Visit 65+ 2011 Fall Risk Assessment 04/13/2025 04/13/2024 Influenza Vaccine (#1) 2025 Procedures Procedure Name Priority Date/Time Associated Diagnosis Comments CT TAVR Schedule Routine, Read Routine (OP Routine) 04/25/2025 11:03 AM CDT Nonrheumatic aortic valve stenosis POCT CREATININE FOR CONTRAST EVALUATION Routine 04/25/2025 10:39 AM CDT TRANSTHORACIC ECHO (TTE) COMPLETE W DOPPLER/CF WO CONTRAST Routine 03/28/2025 11:52 AM CDT Nonrheumatic aortic valve stenosis from Last 3 Months Results * CT TAVR (04/25/2025 11:03 AM CDT) Anatomical Region Laterality Modality Chest N/A Computed Tomogra phy 04/25/2025 1:52 PM CDT Impressions 04/25/2025 4:15 PM CDT 1. Moderate aortic valvular stenosis by calcium score. 2. Aortic annulus, and abdominal aortic, common iliac, external iliac and femoral artery measurements in preparation for TAVR procedure as described above. 3. Aortic valve calcium score: Agatston 1106, Volume 915 mm3. 4. Calcified plaque of the left main resulting in up to 50% luminal stenosis. 5. Distance to the ostium of the right coronary artery from the aortic valve annulus is 11 mm. 6. Distance to the left main ostium from the annulus is 12 mm. 7. Clustered nodules in a tree-in-bud pattern of the left upper lobe that may represent aspiration versus bronchiolitis. Recommend repeat chest imaging in 3-6 months. Dictated by: Joy Steward M.D. The radiology attending physician has personally reviewed this study, and had reviewed and/or edited this written report and agrees with it. Electronically signed by: Sebastien Esquivel M.D. Narrative 04/25/2025 4:15 PM CDT EXAMINATION: Heart CT and CTA abdomen and pelvis with contrast. History: Severe aortic stenosis, pre-TAVR procedure. Technique: Heart CT and CT angiogram of the abdomen and pelvis performed during administration of 118 mL of Optiray 350, intravenously per TAVR Protocol. Images were transferred to an independent workstation for additional 3D post-processing. FINDINGS: Annulus and Thoracic Aortic Measurements (in systole): Aortic valve annulus: Area 449 mm2: circumference 77 mm; 27 mm maximum diameter x 21 mm minimum diameter. Sinuses of Valsalva (measured cusp to commissure): 29 mm x 27 mm x 27 mm. Sinotubular junction: 26 mm diameter sagittal x 24 mm diameter coronal. Ascending aorta: 30 mm x 30 mm Aortic valve calcium score: Agatston 1106, Volume 9:15mm3. Coronary sinus heights: Right coronary sinus height: 17 mm Left coronary sinus height: 19 mm Non-coronary sinus height: 19 mm There is no left ventricular outflow tract calcification. There is mild posterior mitral annular calcification. Distance to RCA ostium from aortic valve annulus: 11 mm Distance to left main ostium from annulus: 12 mm Deployment angle: 3 SÁNCHEZ, 3 cranial Coronary Arteries: Anomalous coronary artery course: No Left main atherosclerosis: Moderate LAD atherosclerosis: Mild Circumflex atherosclerosis: Mild RCA atherosclerosis: Mild Abdominal Aortic and Pelvic Arterial Smallest Diameter Measurements (made from centerline curved MPRs): Infrarenal aorta: 14 mm x 13 mm. There is moderate calcification. Right common iliac artery: 9 mm x 9 mm. There is mild calcification. Right external iliac artery: 8 mm x 7 mm. There is mild calcification. Right common femoral artery: 8 mm x 7 mm. There is mild calcification. Left common iliac artery: 9 mm x 8 mm . There is mild calcification. Left external iliac artery: 8 mm x 7 mm. There is mild calcification. Left common femoral artery: 7 mm x 7 mm. There is mild calcification. There is moderate tortuosity of the bilateral common iliac arteries. This is more severe on the right. There is Moderate tortuosity of the bilateral external iliac arteries. This is more severe on the right. There is mild tortuosity of the bilateral femoral arteries. This is equal in distribution. Other findings: Moderate hiatal hernia. Clustered nodules in a tree-in-bud pattern of the left upper lobe that may represent aspiration versus bronchiolitis. Recommend repeat imaging in 3-6 months. Multiple liver cysts. Colonic diverticula without diverticulitis. Procedure Note Sebastien Esquivel MD - 04/25/2025 EXAMINATION: Heart CT and CTA abdomen and pelvis with contrast. History: Severe aortic stenosis, pre-TAVR procedure. Technique: Heart CT and CT angiogram of the abdomen and pelvis performed during administration of 118 mL of Optiray 350, intravenously per TAVR Protocol. Images were transferred to an independent workstation for additional 3D post-processing. FINDINGS: Annulus and Thoracic Aortic Measurements (in systole): Aortic valve annulus: Area 449 mm2: circumference 77 mm; 27 mm maximum diameter x 21 mm minimum diameter. Sinuses of Valsalva (measured cusp to commissure): 29 mm x 27 mm x 27 mm. Sinotubular junction: 26 mm diameter sagittal x 24 mm diameter coronal. Ascending aorta: 30 mm x 30 mm Aortic valve calcium score: Agatston 1106, Volume 9:15mm3. Coronary sinus heights: Right coronary sinus height: 17 mm Left coronary sinus height: 19 mm Non-coronary sinus height: 19 mm There is no left ventricular outflow tract calcification. There is mild posterior mitral annular calcification. Distance to RCA ostium from aortic valve annulus: 11 mm Distance to left main ostium from annulus: 12 mm Deployment angle: 3 SÁNCHEZ, 3 cranial Coronary Arteries: Anomalous coronary artery course: No Left main atherosclerosis: Moderate LAD atherosclerosis: Mild Circumflex atherosclerosis: Mild RCA atherosclerosis: Mild Abdominal Aortic and Pelvic Arterial Smallest Diameter Measurements (made from centerline curved MPRs): Infrarenal aorta: 14 mm x 13 mm. There is moderate calcification. Right common iliac artery: 9 mm x 9 mm. There is mild calcification. Right external iliac artery: 8 mm x 7 mm. There is mild calcification. Right common femoral artery: 8 mm x 7 mm. There is mild calcification. Left common iliac artery: 9 mm x 8 mm . There is mild calcification. Left external iliac artery: 8 mm x 7 mm. There is mild calcification. Left common femoral artery: 7 mm x 7 mm. There is mild calcification. There is moderate tortuosity of the bilateral common iliac arteries. This is more severe on the right. There is Moderate tortuosity of the bilateral external iliac arteries. This is more severe on the right. There is mild tortuosity of the bilateral femoral arteries. This is equal in distribution. Other findings: Moderate hiatal hernia. Clustered nodules in a tree-in-bud pattern of the left upper lobe that may represent aspiration versus bronchiolitis. Recommend repeat imaging in 3-6 months. Multiple liver cysts. Colonic diverticula without diverticulitis. IMPRESSION: 1. Moderate aortic valvular stenosis by calcium score. 2. Aortic annulus, and abdominal aortic, common iliac, external iliac and femoral artery measurements in preparation for TAVR procedure as described above. 3. Aortic valve calcium score: Agatston 1106, Volume 915 mm3. 4. Calcified plaque of the left main resulting in up to 50% luminal stenosis. 5. Distance to the ostium of the right coronary artery from the aortic valve annulus is 11 mm. 6. Distance to the left main ostium from the annulus is 12 mm. 7. Clustered nodules in a tree-in-bud pattern of the left upper lobe that may represent aspiration versus bronchiolitis. Recommend repeat chest imaging in 3-6 months. Dictated by: Joy Steward M.D. The radiology attending physician has personally reviewed this study, and had reviewed and/or edited this written report and agrees with it. Electronically signed by: Sebastien Esquivel M.D. us Raymond Garcia MD IMG CT PROCEDURES Final Result * POCT creatinine for contrast evaluation (04/25/2025 10:39 AM CDT) Creatinine, POC 1.3 0.6 - 1.3 mg/dL Blood 04/25/2025 10:3 9 AM CDT us Raymond Garcia MD POINT OF CARE TEST ORDERABLES Fi nal Result * TRANSTHORACIC ECHO (TTE) COMPLETE W DOPPLER/CF WO CONTRAST (03/28/2025 11:52 AM CDT) EF Mod BP 59 % CONS SCIMAGE Anatomical Region Laterality Modality Ultrasound 03/28/2025 10:4 0 AM CDT Narrative 03/29/2025 7:12 AM CDT [facility] Cardiology [address], [place], [place] [id number] [address] [facility] [address], [place] [address] P:[phone] P:[phone] Echocardiographic Report Patient Name: ALETA KENNY : 1945 Study Date: 03/28/2025 10:40:33 AM Gender: F Pre Planning Advisor: Natividad Salas)([place]), [facility] Location: [facility] Provider: RAYMOND GARCIA Height(Cm): 155 BSA: 2.08 Weight(Kg): 100.7 Heart Rate: 48 BP: 134 / 82 Quality: Good Order Provider: RAYMOND GARCIA PROCEDURES: Echocardiographic Report: Transthoracic echocardiogram with complete 2D, M-Mode, and color Doppler examination. With Strain Analysis. INDICATIONS: I35.0 Nonrheumatic aortic (valve) stenosis. MEASUREMENTS: 2D/MM Value Range Doppler Value Range EF Mod BP 59 % [ 54 - 74 ] SOHAN Vmax 1.10 cm2 [ 2.00 - 4.00 ] LV GLS -17.72 % AV Mean PG 22 mmHg LVIDd 2D 3.87 cm [ 3.80 - 5.20 ] AV Peak Michael 3.34 m/s [ 1.00 - 1.70 ] LVIDs 2D 2.77 cm [ 2.20 - 3.50 ] AV Peak PG 45 mmHg LVPWd 2D 1.33 cm [ 0.60 - 0.90 ] AV VTI 85.24 cm IVSd 2D 1.25 cm [ 0.60 - 0.90 ] LVOT Diam 1.98 cm [ 1.70 - 2.10 ] AoR Diam 2D 2.83 cm [ 2.70 - 3.70 ] LVOT Peak Michael 1.19 m/s [ 0.70 - 1.10 ] LA Volume 49.85 ml [ 22.00 - 52.00 ] LVOT VTI 30.93 cm LA Volume Index 24 cc/m2 [ 16 - 28 ] MV E Peak Michael 0.69 m/s [ 0.60 - 1.30 ] RA Volume 26.66 ml MV A Peak Michael 0.84 m/s [ 1.00 - 1.20 ] MV Decel Time 233 msec [ 104 - 258 ] PV Peak Michael 0.78 m/s [ 0.40 - 0.80 ] RV S` 7.24 mmHg Lateral E` 0.07 m/s [ 0.10 - 0.15 ] Septal E` 0.05 m/s [ 0.08 - 0.15 ] E` 0.06 m/s E/E` 12 Tapse 2.24 cm [ 1.71 - 5.00 ] 2D/MM Value Range Doppler Value Range - FINDINGS: Interpretation Site: Exam was interpreted at home. Left Ventricle: Normal left ventricular size. Moderate concentric left ventricular hypertrophy. Normal global left ventricular systolic function. Impaired diastolic relaxation Grade I. Ejection fraction is measured at 59 %. Global Longitudinal Strain is -18 %. Right Ventricle: Normal right ventricular size. Normal right ventricular systolic function. Left Atrium: There is mild enlargement of left atrium. Right Atrium: The right atrium is normal in size. Atrial Septum: Normal atrial septum. Mitral Valve: Normal appearance of the mitral valve. Aortic Valve: Aortic valve not well visualized. Severe aortic stenosis. Peak Velocity of 3.30 m/s. Mean gradient of 22.0 mmHg. Valve area of 0.9 cm2. Mild aortic valve regurgitation. Tricuspid Valve: Tricuspid valve not well visualized. Pulmonic Valve: Pulmonic valve not well visualized. Pericardium: Normal pericardium with no significant pericardial effusion. Aorta: Mild aortic root calcification. IVC: The IVC is not well visualized. CONCLUSIONS: Normal left ventricular size. Moderate concentric left ventricular hypertrophy. Normal global left ventricular systolic function. Impaired diastolic relaxation Grade I. Ejection fraction is measured at 59 %. Global Longitudinal Strain is -18 %. Normal right ventricular size and systolic function. Fdth-hj-bhrlvtrw enlargement of left atrium. Normal appearance of the mitral valve. No significant MR. Aortic valve not well visualized, appears calcified and restricted. Severe aortic stenosis with relatively lower mean gradient. V max 3.30 m/s. MG 22.0 mmHg. Valve area 0.9 cm2. Mild aortic valve regurgitation. Unable to assess RVSP due to inadequate TR jet. Electronically Signed By: Raymond Garcia MD, [facility] 03/29/2025 7:12:00 AM CDT Procedure Note Raymond Garcia MD - 03/29/2025 [facility] Cardiology [address], [place] [address] [address], [place] [address] P:[phone] P:[phone] Echocardiographic Report Patient Name: ALETA KENNY : 1945 Study Date: 03/28/2025 10:40:33 AM Gender: F Pre Planning Advisor: Natividad Ridley ([place])([place]), [facility] Location: [facility] Provider: RAYMOND GARCIA Height(Cm): 155 BSA: 2.08 Weight(Kg): 100.7 Heart Rate: 48 BP: 134 / 82 Quality: Good Order Provider: RAYMOND GARCIA PROCEDURES: Echocardiographic Report: Transthoracic echocardiogram with complete 2D, M-Mode, and color Dopplerexamination. With Strain Analysis. INDICATIONS: I35.0 Nonrheumatic aortic (valve) stenosis. MEASUREMENTS: 2D/MM Value Range Doppler ValueRange EF Mod BP 59 % [ 54 - 74 ] SOHAN Vmax 1.10cm2 [ 2.00 - 4.00 ] LV GLS -17.72 % AV Mean PG 22mmHg LVIDd 2D 3.87 cm [ 3.80 - 5.20 ] AV Peak Michael 3.34m/s [ 1.00 - 1.70 ] LVIDs 2D 2.77 cm [ 2.20 - 3.50 ] AV Peak PG 45mmHg LVPWd 2D 1.33 cm [ 0.60 - 0.90 ] AV VTI 85.24cm IVSd 2D 1.25 cm [ 0.60 - 0.90 ] LVOT Diam 1.98cm [ 1.70 - 2.10 ] AoR Diam 2D 2.83 cm [ 2.70 - 3.70 ] LVOT Peak Michael 1.19m/s [ 0.70 - 1.10 ] LA Volume 49.85 ml [ 22.00 - 52.00 ] LVOT VTI 30.93cm LA Volume Index 24 cc/m2 [ 16 - 28 ] MV E Peak Michael 0.69m/s [ 0.60 - 1.30 ] RA Volume 26.66 ml MV A Peak Michael 0.84m/s [ 1.00 - 1.20 ] MV Decel Time 233 msec [ 104 - 258 ] PV Peak Michael 0.78 m/s [ 0.40 - 0.80 ] RV S` 7.24 mmHg Lateral E` 0.07 m/s [ 0.10 - 0.15 ] Septal E` 0.05 m/s [ 0.08 - 0.15 ] E` 0.06 m/s E/E` 12 Tapse 2.24 cm [ 1.71 - 5.00 ] 2D/MM Value Range Doppler ValueRange - FINDINGS: Interpretation Site: Exam was interpreted at home. Left Ventricle: Normal left ventricular size. Moderate concentric left ventricularhypertrophy. Normal global left ventricular systolic function. Impaired diastolic relaxationGrade I. Ejection fraction is measured at 59 %. Global Longitudinal Strain is -18%. Right Ventricle: Normal right ventricular size. Normal right ventricular systolicfunction. Left Atrium: There is mild enlargement of left atrium. Right Atrium: The right atrium is normal in size. Atrial Septum: Normal atrial septum. Mitral Valve: Normal appearance of the mitral valve. Aortic Valve: Aortic valve not well visualized. Severe aortic stenosis. Peak Velocity of3.30 m/s. Mean gradient of 22.0 mmHg. Valve area of 0.9 cm2. Mild aortic valveregurgitation. Tricuspid Valve: Tricuspid valve not well visualized. Pulmonic Valve: Pulmonic valve not well visualized. Pericardium: Normal pericardium with no significant pericardial effusion. Aorta: Mild aortic root calcification. IVC: The IVC is not well visualized. CONCLUSIONS: Normal left ventricular size. Moderate concentric left ventricularhypertrophy. Normal global left ventricular systolic function. Impaired diastolic relaxationGrade I. Ejection fraction is measured at 59 %. Global Longitudinal Strain is -18%. Normal right ventricular size and systolic function. Cter-ln-jnnpejuj enlargement of left atrium. Normal appearance of the mitral valve. No significant MR. Aortic valve not well visualized, appears calcified and restricted. Severeaortic stenosis with relatively lower mean gradient. V max 3.30 m/s. MG 22.0mmHg. Valve area 0.9 cm2. Mild aortic valve regurgitation. Unable to assess RVSP due to inadequate TR jet. Electronically Signed By: Raymond Garcia MD, [facility] 03/29/2025 7:12:00 AM CDT us Raymond Garcia MD CV ECHO PROCEDURES Final Result from Last 3 Months Insurance MEDICARE [facility]ARE [facility] [facility] Care Teams Embryology Teacher Relationship Specialty Start Date End Date Kingsley Augustin DO [address] [place] [address] PCP - General Family Medicine 07/08/20
--- OUTSIDE RECORDS SUMMARY | 2025-06-07 13:51 | XMS_ITS | Encounter Summary ---
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 Gender Identity Not on file Sexual Orientation Not on file documented as of this encounter Plan of Treatment Not on file documented as of this encounter Procedures Procedure Name Priority Date/Time Associated Diagnosis Comments SCAN - RADIOLOGY/IMAGING 02/05/2025 9:28 PM CDT documented in this encounter Results * SCAN - RADIOLOGY/IMAGING (02/05/2025 9:28 PM CDT) Anatomical Region Laterality Modality Other us Provider Scanning Final Result documented in this encounter Visit Diagnoses Not on filedocumented in this encounter Care Teams Psychologist Developmental Relationship Specialty Start Date End Date Kingsley Augustin DO [address] [place] [address] PCP - General Family Medicine 07/08/20 documented as of this encounter
--- OUTSIDE RECORDS SUMMARY | 2025-06-07 13:51 | XMS_ITS | Encounter Summary ---
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 Gender Identity Not on file Sexual Orientation Not on file documented as of this encounter Plan of Treatment Not on file documented as of this encounter Procedures Procedure Name Priority Date/Time Associated Diagnosis Comments PULMONARY - RESULT SCAN 01/31/2025 documented in this encounter Results * PULMONARY - RESULT SCAN (01/31/2025) Anatomical Region Laterality Modality Other us Provider Scanning Final Result documented in this encounter Visit Diagnoses Not on filedocumented in this encounter Care Teams Pega Developer Relationship Specialty Start Date End Date Kingsley Augustin DO [address] [place] [address] PCP - General Family Medicine 07/08/20 documented as of this encounter
[2025-06-08 09:44] LABS: Parathyroid Intact 37.5 (7.5-53.5)
== END 2025-06-07 11:59 | disposition home or self-care (01) ==
LOC: CHSLAB 11:59
PROVIDERS: PCP Family Medicine; Visit Provider Internal Medicine Nephrology
DX: I12.9 Hypertensive chronic kidney disease with stage 1 through stage 4 chronic kidney disease, or unspecified chronic kidney disease (principal); N18.31 Chronic kidney disease, stage 3a; N18.32 Chronic kidney disease, stage 3b
CPT/HCPCS: 36415; 80053; 82570; 83970; 84100; 84156; 85025